=== PATIENT | male | born 1960 | race Caucasian/White ===

== ENCOUNTER 2017-10-11 14:38 | Inpatient (IN) | payer OTHER ==
[2017-10-11] MEDS ORDERED: PIPERACILLIN/TAZOBACTAM 4.5 GM VIAL IV ONE (14:58)
[2017-10-11] MEDS ORDERED: ACETAMINOPHEN 650 MG SUPP.RECT PR ONE ×2 (14:59→15:01)
[2017-10-11] MEDS ORDERED: VANCOMYCIN HCL INJ 1000 MG VIAL IV ONE (15:00)
[2017-10-11 15:05] LABS: VENOUS BLOOD HCO3 15.2 mmol/L (20-32); VENOUS BLOOD PCO2 26.1 mmHg (35-63); VENOUS BLOOD PH 7.38 (7.30-7.42)
[2017-10-11 15:06] LABS: INTERNATIONAL RATION (INR) 1.56; PROTHROMBIN TIME 19.6 SEC (11.4-15.4)
[2017-10-11 15:08] LABS: HEMATOCRIT 44.2 % (37.9-51.0); HEMOGLOBIN 15.5 g/dL (13.5-17.0); MEAN CORPUSCULAR HEMOGLOBIN 34.7 pg (27.0-33.4); MEAN CORPUSCULAR HGB CONC 35.1 g/dL (32.0-36.0); MEAN CORPUSCULAR VOLUME 99 fl (80-97); RED BLOOD COUNT 4.47 10^6/uL (4.35-5.55); RED CELL DISTRIBUTION WIDTH 13.5 % (11.5-14.0); WHITE BLOOD COUNT 6.6 10^3/uL (4.0-10.5)
[2017-10-11] MEDS ORDERED: LEVOFLOXACIN 750 MG/D5W RTU 750 MG/150 ML RTUPB IV ONE ×2 (15:13→20:24)
[2017-10-11] MEDS ORDERED: RINGERS SOLUTION,LACTATED 1,000 ML IV ONE ×3 (15:14→18:54)
[2017-10-11 15:20] LABS: ALANINE AMINOTRANSFERASE 400 U/L (21-72); ALBUMIN 3.8 g/dL (3.5-5.0); ALKALINE PHOSPHATASE 49 U/L (38-126); ANION GAP 14 (5-19); BILIRUBIN,DIRECT 0.8 mg/dL (0.0-0.4); BILIRUBIN,TOTAL 1.5 mg/dL (0.2-1.3); BLOOD UREA NITROGEN 37 mg/dL (7-20); CALCIUM 8.6 mg/dL (8.4-10.2); CARBON DIOXIDE 18 mmol/L (22-30); CHLORIDE 97 mmol/L (98-107); GLUCOSE 82 mg/dL (75-110); POTASSIUM 4.3 mmol/L (3.6-5.0); SODIUM 129.2 mmol/L (137-145); TOTAL PROTEIN 6.4 g/dL (6.3-8.2)
[2017-10-11] MEDS: NORMAL SALINE 1000 ML 1,000 ML IV PRN ×3 (15:22→19:28)
[2017-10-11 15:27] LABS: ASPARTATE AMINO TRANSFERASE 895 U/L (17-59)
[2017-10-11 15:32] LABS: PLATELET COUNT 61 10^3/uL (150-450)
[2017-10-11 15:35] LABS: ABSOLUTE LYMPHOCYTES# (MANUAL) 0.3 10^3/uL (0.5-4.7); ABSOLUTE MONOCYTES # (MANUAL) 0.1 10^3/uL (0.1-1.4); ABSOLUTE NEUTROPHILS# (MANUAL) 6.2 10^3/uL (1.7-8.2); BASOPHILS % (MANUAL) 1 % (0-2); EOSINOPHILS % (MANUAL) 0 % (0-6); LYMPHOCYTES % (MANUAL) 3 % (13-45); MONOCYTES % (MANUAL) 1 % (3-13); SEGMENTED NEUTROPHILS % (MAN) 51 % (42-78); TOTAL CELLS COUNTED 100
[2017-10-11 15:36] LABS: PLATELET COMMENT DECREASED; RBC MORPHOLOGY COMMENT NORMO-CYTIC/CHROMIC; TOXIC VACUOLATION PRESENT
[2017-10-11 15:37] LABS: BAND NEUTROPHILS % (MANUAL) 34 % (3-5); METAMYELOCYTES % (MANUAL) 9 % (0)
[2017-10-11] MEDS ORDERED: DEXTROSE 5%-WATER 250 ML with NOREPINEPHRINE BITARTRATE 4 MG IV PRN ×4 (16:17→19:45)
[2017-10-11] MEDS ORDERED: NOREPINEPHRINE BITARTRATE INJ/PF 4 MG/4 ML SDV IV ONE (16:21)
[2017-10-11] MEDS ORDERED: CEFEPIME 2 GM/D5W RTU 2 GM/50 ML RTUPB IV ONE (16:59)
--- NOTE | 2017-10-11 17:09 | ER Document Report ---
ED General - General Chief Complaint: Low Blood Pressure Stated Complaint: POSSIBLE SEPSIS Time Seen by Provider: 10/11/17 14:46 Mode of Arrival: Medic Information source: Patient Notes: This is a 57-year-old man who is brought in by EMS with fever, hypotension and pain. The patient is a 2 pack per day smoker and he drinks alcohol regularly. He is on no medicines. He states that he has been sick for the last few days. The patient's states that he has been coughing for the last few days. He also notes that the patient had told him that he fell a week ago and hit his head and lost consciousness. He is not complained of a headache since that time. The patient himself states that his 's dog bit him in the left index finger and that it looked infected and he started feeling bad after that. TRAVEL OUTSIDE OF THE [place] IN LAST 30 DAYS: No - HPI Onset: Last week Onset/Duration: Gradual Quality of pain: Dull Severity: Moderate Pain Level: 2 Associated symptoms: Nonproductive cough, Fever, Weakness. denies: Nausea, Vomiting, Shortness of breath Exacerbated by: Denies Relieved by: Denies Similar symptoms previously: No Recently seen / treated by doctor: No - Related Data Allergies/Adverse Reactions: Penicillins Allergy (Verified 10/11/17 15:29) Past Medical History - General Information source: Patient, Relative - Patient is accompanied by his - Social History Smoking Status: Current Every Day Smoker Cigarette use (# per day): Yes - Pack per day smoker Chew tobacco use (# tins/day): No Frequency of alcohol use: Heavy Drug Abuse: None Lives with: Spouse/Significant other Family History: None Patient has suicidal ideation: No Patient has homicidal ideation: No - Past Medical History Cardiac Medical History: Reports: None Pulmonary Medical History: Reports: None Endocrine Medical History: Reports: None Renal/ Medical History: Reports: None. Denies: Hx Peritoneal Dialysis Malignancy Medical History: Reports None GI Medical History: Reports: Hx Gastroesophageal Reflux Disease Musculoskeltal Medical History: Reports None Skin Medical History: Reports None Psychiatric Medical History: Reports: Hx Depression Traumatic Medical History: Reports: None Infectious Medical History: Reports: None Past Surgical History: Reports: Hx Cholecystectomy Review of Systems - Review of Systems Notes: Review of systems: Constitutional: Positive for fever chills EENT: Denies ear pain, sinus tenderness, throat pain, throat swelling. Cardiovascular: Denies chest pain, palpitations, dyspnea or edema. Respiratory: Positive for cough Abdomen: Denies abdominal pain, nausea, vomiting, diarrhea. Denies BRBPR or melena. Genitourinary: Denies dysuria, pyuria, hematuria, flank pain. Musculoskeletal: See H&P Neurologic: Denies headache, photophobia, neck stiffness, weakness. Denies loss of bowel or bladder function. Denies saddle anesthesia. Skin: See H&P Physical Exam - Vital signs Vitals: Resp Pulse Ox 39 H 92 10/11/17 14:42 10/11/17 14:42 Notes: Physical exam: GENERAL: 57-year-old man, hypotensive, looks quite ill, temperature 103.5 rectally HEAD: Atraumatic, normocephalic. EYES: Pupils equal round and reactive to light, extraocular movements intact, sclera anicteric, conjunctiva are normal. ENT: TMs normal, nares patent, oropharynx clear without exudates. Moist mucous membranes. NECK: Normal range of motion, supple without obvious mass or JVD. LUNGS: Breath sounds clear to auscultation bilaterally and equal. No wheezes rales or rhonchi. HEART: Regular rate and rhythm without murmurs, rubs or gallops. Flank: Patient has ecchymoses over the right flank. It is 10 cm at its greatest diameter. Rectal: No masses, stool sent for study, stool brown Penis: No obvious lesions of the perineum ABDOMEN: Soft, normoactive bowel sounds. No tenderness to palpation. No guarding, no rebound. No masses appreciated. EXTREMITIES: The patient does have healing dog bite over the dorsal aspect of the left index finger over the proximal phalanx. From the trajectory it look like the bite amanda was towards the volar surface. There is some fullness to the volar aspect of the index finger over the proximal phalanx. There is no obvious fluctuance. There is some swelling of the tissue. There is mild tenderness to palpation. NEUROLOGICAL: Cranial nerves II through XII grossly intact. Normal speech, moving all extremities. PSYCH: Normal mood, normal affect. SKIN: The patient has mottled skin and cold extremities. He does have pedal pulses at this point. Course - Re-evaluation Re-evalutation: 10/11/17 17:18 The patient currently being fluid resuscitated. He is on his third liter ( Ringer's lactate, the first 2 L with normal saline). The concern is septic shock. The etiology at this point is unclear. Whether the dog bite had anything to do with it is unclear. He has had some respiratory symptoms. In any event he was started on IV levofloxacin and IV vancomycin. I have presented the case with the hospitalist (Dr Hassan) as this patient will be admitted to the ICU. He will evaluate the patient in the ER. Patient does have a history of anaphylaxis due to penicillin. I discussed the case with the infectious disease fellow at [facility] (Dr. Lockhart) who recommended cefepime. This was added to his antibiotic regimen. The patient's current IV access includes 2 peripheral lines and a right femoral central line. I initially attempted a triple line in the right IJ but this needed to be aborted because of the patient's intolerance to the full sterile field (i.e. thrashing from claustrophobia and SOB under the drapes). Thus, a right triple lumen femoral central line was placed. I did discuss the case with Dr. quesada (orthopedics) who will consult on the patient regarding the hand. 10/11/17 17:46 10/11/17 18:16 Patient is currently on his fourth liter of fluid. He has received IV levofloxacin, IV Vanco and IV cefepime. He is on IV Levophed (right femoral vein). I reexamined the patient with Dr. Quesada given the history of dog bite to the left index finger. He will follow the patient. No indication for drainage at this time. The patient is admitted to the ICU. The goal is a systolic blood pressure greater than 90. He is alert and oriented 3 and answering questions. He does not appear to be in any respiratory distress at this time and his O2 sat is 96% on 2 L per 10/11/17 18:40 At this point in time, the hospital is on high census and there are no ICU beds. I did call [facility] and [facility] regarding their ICU bed availability and both those hospitals are full census and not accepting transfer. I do not believe the patient is stable enough to go any further distance than those 2 hospitals. Await ICU bed here. His oxygen saturation is currently 96%. 10/11/17 18:55 The patient is complaining of a lot of lower extremity pain. He continues to have mottled appearance to the lower extremities. We are able to Doppler dorsal pedal pulses bilaterally but they are reduced. 10/11/17 19:26 - Vital Signs Vital signs: Temp Pulse Resp BP Pulse Ox 97 F L 96 16 132/75 H 94 10/12/17 03:30 10/12/17 03:30 10/12/17 08:29 10/12/17 08:00 10/12/17 08:29 - Laboratory Result Diagrams: 10/12/17 05:05 10/11/17 14:19 Laboratory results interpreted by me: 10/11/17 10/11/17 10/11/17 14:19 14:19 14:19 MCV 99 H MCH 34.7 H Plt Count 61 L Band Neutrophils % 34 H Lymphocytes % (Manual) 3 L Monocytes % (Manual) 1 L Metamyelocytes % 9 H Abs Lymphs (Manual) 0.3 L PT 19.6 H VBG pCO2 VBG HCO3 Sodium 129.2 L Chloride 97 L Carbon Dioxide 18 L BUN 37 H Creatinine 2.42 H Est GFR ( Amer) 33 L Est GFR (Non-Af Amer) 28 L Lactic Acid Total Bilirubin 1.5 H Direct Bilirubin 0.8 H AST 895 H ALT 400 H Urine Protein Urine Blood Urine Urobilinogen 10/11/17 10/11/17 10/11/17 14:44 14:44 16:35 MCV MCH Plt Count Band Neutrophils % Lymphocytes % (Manual) Monocytes % (Manual) Metamyelocytes % Abs Lymphs (Manual) PT VBG pCO2 26.1 L VBG HCO3 15.2 L Sodium Chloride Carbon Dioxide BUN Creatinine Est GFR ( Amer) Est GFR (Non-Af Amer) Lactic Acid 4.5 H Total Bilirubin Direct Bilirubin AST ALT Urine Protein 100 H Urine Blood SMALL H Urine Urobilinogen 4.0 H - Diagnostic Test Radiology reviewed: Image reviewed, Reports reviewed - X-ray shows no obvious infiltrate Procedures - Central Line Right Femoral Time completed: 15:15 Consent obtained: Yes - Verbal consent obtained from both him and his Central line pre-insertion: Chloraprep applied, Sterile drapes applied Central line size (Fr.): 7 Central line lumen type: Triple Anesthetic type: 1% Lidocaine w/epi mL's of anesthesia: 3 Ultrasound guided: Yes CM at insertion site: 20 Line secured with sutures: Yes Central line post-insertion: Blood return from lumens, Biopatch applied, Sutured , Sterile dressing applied Number of attempts: 1 Complications: No Notes: 10/11/17 19:26 MSBT (maximum sterile barrier technique) followed including cap, mask, sterile gloves, large sterile sheet, hand hygiene, sterile ultrasound probe sleeve, sterile saline for probe visualization, liberal ChloraPrep for cutaneous antisepsis both during procedure set up and immediately before Biopatch application, line stabilization with suture and sterile Tegaderm placement. Critical Care Note - Critical Care Note Total time excluding time spent on procedures (mins): 120 Discharge - Discharge Clinical Impression: Septic shock Condition: Critical Disposition: ADMITTED INPATIENT Admitting Provider: Hospitalist - Dr Cervantes Unit Admitted: ICU
--- NOTE | 2017-10-11 17:14 | RADIOLOGY REPORT (SQ) ---
EXAM DESCRIPTION: CT ABD/PELVIS NO ORAL OR IV COMPLETED DATE/TIME: 10/11/2017 4:59 pm REASON FOR STUDY: septic shock COMPARISON: None. TECHNIQUE: CT scan of the abdomen and pelvis performed without intravenous or oral contrast. Images reviewed with lung, soft tissue, and bone windows. Reconstructed coronal and sagittal MPR images revi ewed. All images stored on PACS. All CT scanners at this facility use dose modulation, iterative reconstruction, and/or weight based d osing when appropriate to reduce radiation dose to as low as reasonably achievable (ALARA). [facility]: Dose Right [facility]: CareDose [facility]: Dose Right [facility]: Teradose 4D [facility]: [employer] RADIATION DOSE: mGy. LIMITATIONS: None. FINDINGS: LOWER CHEST: Tiny bilateral pleural effusions. Minimal basilar subsegmental atelectasis. NON-CONTRASTED LIVER, SPLEEN, ADRENALS: Evaluation limited by lack of IV contrast. No identified sign ificant masses. PANCREAS: No masses. No peripancreatic inflammatory changes. GALLBLADDER: Surgically absent. RIGHT KIDNEY AND URETER: No suspicious masses. Assessment limited by lack of IV contrast. No signif icant calcifications. No hydronephrosis or hydroureter. LEFT KIDNEY AND URETER: No suspicious masses. Assessment limited by lack of IV contrast. No signifi cant calcifications. No hydronephrosis or hydroureter. AORTA AND RETROPERITONEUM: No aneurysm. No retroperitoneal masses or adenopathy. Mild nonspecific pa rarenal fat stranding. BOWEL AND PERITONEAL CAVITY: No obvious masses or inflammatory changes. Mild colonic diverticulosis. No free fluid. APPENDIX: Normal. PELVIS, BLADDER, AND ABDOMINAL WALL:No abnormal masses. No free fluid. Bladder contains a Vargas jayesh ter with some intraluminal gas. . BONES: No significant findings. OTHER: Right femoral central venous catheter tip overlies the right common iliac vein. IMPRESSION: Tiny bilateral pleural effusions. Minimal basilar subsegmental atelectasis. Mild nonspecific pararenal fat stranding. No hydronephrosis or hydroureter. COMMENT: Quality ID # [id number]: Final reports with documentation of one or more dose reduction techniques (e.g., Automated exposure control, adjustment of the mA and/or kV according to patient size, use of iterative reconstruction technique) TECHNICAL DOCUMENTATION: JOB ID: [id number] [place]-72 2010 [employer]- All Rights Reserved
--- NOTE | 2017-10-11 17:21 | RADIOLOGY REPORT (SQ) ---
EXAM DESCRIPTION: CHEST SINGLE VIEW COMPLETED DATE/TIME: 10/11/2017 5:13 pm REASON FOR STUDY: sepsis protocol COMPARISON: None. EXAM PARAMETERS: NUMBER OF VIEWS: One view. TECHNIQUE: Single frontal radiographic view of the chest acquired. RADIATION DOSE: NA LIMITATIONS: None. FINDINGS: LUNGS AND PLEURA: No opacities, masses or pneumothorax. No pleural effusion. MEDIASTINUM AND HILAR STRUCTURES: No masses. Contour normal. HEART AND VASCULAR STRUCTURES: Heart normal in size. Normal vasculature. BONES: No acute findings. HARDWARE: None in the chest. OTHER: No other significant finding. IMPRESSION: NO ACUTE RADIOGRAPHIC FINDING IN THE CHEST. TECHNICAL DOCUMENTATION: JOB ID: [id number] [employer]- All Rights Reserved
--- NOTE | 2017-10-11 17:26 | RADIOLOGY REPORT (SQ) ---
EXAM DESCRIPTION: CT HEAD WITHOUT COMPLETED DATE/TIME: 10/11/2017 5:15 pm REASON FOR STUDY: fall COMPARISON: None. TECHNIQUE: Axial images acquired through the brain without intravenous contrast. Images reviewed wi th bone, brain and subdural windows. Images stored on PACS. All CT scanners at this facility use dose modulation, iterative reconstruction, and/or weight based d osing when appropriate to reduce radiation dose to as low as reasonably achievable (ALARA). [facility]: Dose Right [facility]: CareDose [facility]: Dose Right [facility]: Teradose 4D [facility]: [employer] RADIATION DOSE: mGy. LIMITATIONS: None. FINDINGS: VENTRICLES: Normal size and contour. CEREBRUM: No masses. No hemorrhage. No midline shift. No evidence for acute infarction. Normal gra y/white matter differentiation. No areas of low density in the white matter. CEREBELLUM: No masses. No hemorrhage. No alteration of density. No evidence for acute infarction. EXTRAAXIAL SPACES: No fluid collections. No masses. ORBITS AND GLOBE: No intra- or extraconal masses. Normal contour of globe without masses. CALVARIUM: No fracture. PARANASAL SINUSES: Mucosal thickening is identified in the maxillary antra and several of the ethmoid al air cells. SOFT TISSUES: No mass or hematoma. OTHER: No other significant finding. IMPRESSION: No significant intracranial abnormalities were identified. Other findings as noted abov e. EVIDENCE OF ACUTE STROKE: NO. COMMENT: Quality ID # [id number]: Final reports with documentation of one or more dose reduction techniques (e.g., Automated exposure control, adjustment of the mA and/or kV according to patient size, use of iterative reconstruction technique) TECHNICAL DOCUMENTATION: JOB ID: [id number] [employer]- All Rights Reserved
--- NOTE | 2017-10-11 17:27 | RADIOLOGY REPORT (SQ) ---
EXAM DESCRIPTION: FOOT LEFT 2 VIEWS COMPLETED DATE/TIME: 10/11/2017 5:13 pm REASON FOR STUDY: left calcaneal pain COMPARISON: None. NUMBER OF VIEWS: Two views TECHNIQUE: AP and lateral radiographic images acquired of the left foot. LIMITATIONS: None. FINDINGS: MINERALIZATION: Normal. BONES: No acute fracture or dislocation. No worrisome bone lesions. JOINTS: No effusions. SOFT TISSUES: No soft tissue swelling. No foreign body. OTHER: No other significant finding. IMPRESSION: NEGATIVE STUDY OF THE LEFT FOOT. NO RADIOGRAPHIC EVIDENCE OF ACUTE INJURY. TECHNICAL DOCUMENTATION: JOB ID: [id number] [employer]- All Rights Reserved
--- NOTE | 2017-10-11 17:28 | RADIOLOGY REPORT (SQ) ---
EXAM DESCRIPTION: HAND LEFT 3 VIEWS COMPLETED DATE/TIME: 10/11/2017 5:13 pm REASON FOR STUDY: h/o bite to left index finger COMPARISON: None. EXAM PARAMETERS: NUMBER OF VIEWS: Three views. TECHNIQUE: AP, lateral and oblique radiographic images acquired of the left hand. LIMITATIONS: None. FINDINGS: MINERALIZATION: Normal. BONES: No acute fracture or dislocation. No worrisome bone lesions. JOINTS: No effusions. SOFT TISSUES: Mild soft tissue swelling. Several punctate radiopaque foreign bodies appear present i n the palmar soft tissue interspace between the 1st and 2nd digits. OTHER: No other significant finding. IMPRESSION: Several punctate radiopaque foreign bodies appear present in the palmar soft tissue inte rspace between the 1st and 2nd digits. No fracture. TECHNICAL DOCUMENTATION: JOB ID: [id number] [place]-72 2010 [employer]- All Rights Reserved
[2017-10-11 17:38] LABS: AMORPHOUS SEDIMENT,URINE TRACE /HPF; APPEARANCE,URINE CLOUDY; BILIRUBIN,URINE NEGATIVE (NEGATIVE); GLUCOSE, URINE NEGATIVE (NEGATIVE); KETONES,URINE NEGATIVE (NEGATIVE); LEUKOCYTE ESTERASE,URINE NEGATIVE (NEGATIVE); NITRITE,URINE NEGATIVE (NEGATIVE); PROTEIN,URINE 100 mg/dL (NEGATIVE); URINE SPECIFIC GRAVITY 1.018
[2017-10-11 17:41] LABS: COLOR,URINE YELLOW
[2017-10-11] MEDS ORDERED: NICOTINE 14 MG/24 HR PATCH.TD24 TD ONE (17:55)
[2017-10-11] MEDS ORDERED: LORAZEPAM 0.5 MG TABLET PO ONE (17:56)
[2017-10-11] MEDS ORDERED: MORPHINE SULFATE 10 MG/ML INJ IV ONE (18:28)
[2017-10-11] MEDS ORDERED: HYDROMORPHONE HCL INJ/PF 2 MG/ML AMPULE IV ONE (18:36)
[2017-10-11] MEDS ORDERED: DEXTROSE 5%-WATER 250 ML with PHENYLEPHRINE HCL 40 MG IV PRN ×2 (19:33)
[2017-10-11] MEDS ORDERED: NORMAL SALINE 1000 ML 1,000 ML IV SCH (19:45)
[2017-10-11] MEDS ORDERED: VANCOMYCIN HCL 0 MG in DEXTROSE 5%-WATER 250 ML IV NR (20:00)
[2017-10-11 20:22] LABS: ALANINE AMINOTRANSFERASE 324 U/L (21-72); ALBUMIN 2.9 g/dL (3.5-5.0); ALKALINE PHOSPHATASE 34 U/L (38-126); ASPARTATE AMINO TRANSFERASE 681 U/L (17-59); BILIRUBIN,DIRECT 1.1 mg/dL (0.0-0.4); BILIRUBIN,TOTAL 1.7 mg/dL (0.2-1.3); TOTAL PROTEIN 5.2 g/dL (6.3-8.2)
[2017-10-11] MEDS ORDERED: PHENYLEPHRINE HCL INJ/PF 10 MG/1 ML SDV ONE ×2 (20:23→20:37)
--- NOTE | 2017-10-11 20:49 | PDOC H&P ---
History of Present Illness Admission Date/PCP: 10/11/17 18:42 Patient complains of: Fever, chills, malaise History of Present Illness: JOSEPH BUSBY is a 57 year old male apparently with no significant medical problem, but is a smoker and uses alcohol regularly. Patient reported having cough for about 1 to 2 weeks, nonproductive. He works in the [employer] and continue to had continued to work per his . Last night after he returned from work he had significant chills and had a rapid strep in the blanket. He could not eat due to loss of appetite. This morning he got worse with fever, chills, dizziness, malaise and syncope. Patient also reports dog bite left index finger and patient thinks he may also have begun to be sick after the bite. In the ED where he was found to be hypotensive systolic of 70s. He received 3 L bolus of Ringer's lactate with persistent hypotension. He has not been started on levo fed. Patient also has received Levaquin and vancomycin antibiotics. He reports allergies to penicillin with possible anaphylaxis, but ED physician called ID at [facility] and benefits of cefepime given the history of dog bite was thought to outweigh the risk, so patient also received cefepime. He is currently being admitted to intensive care for further evaluation and management. Past Medical History Past Medical History: As in HPI Cardiac Medical History: Reports: None Pulmonary Medical History: Reports: None Endocrine Medical History: Reports: None Renal/ Medical History: Reports: None Malignancy Medical History: Reports: None GI Medical History: Reports: Gastroesophageal Reflux Disease Musculoskeltal Medical History: Reports: None Skin Medical History: Reports: None Psychiatric Medical History: Reports: Depression Traumatic Medical History: Reports: None Infectious Medical History: Reports: None Past Surgical History Past Surgical History: Reports: Cholecystectomy Social History Lives with: Spouse/Significant other Smoking Status: Current Every Day Smoker - Advance Directive Resuscitation Status: Full Code Family History Family History: Noncontributory Parental Family History Reviewed: Yes Children Family History Reviewed: Unknown Sibling(s) Family History Reviewed.: Unknown Medication/Allergy Home Medications: No Home Medications 10/11/17 Allergies/Adverse Reactions: Penicillins Allergy (Verified 10/11/17 15:29) Review of Systems Review of Systems: As in the HPI. Also no significant weight loss. No abdominal pain or rectal bleeding, no chest pain or palpitations. Complains of pain bilateral feet. Physical Exam Vital Signs: Temp Pulse Resp BP Pulse Ox 103.5 F H 24 H 76/58 L 100 10/11/17 15:02 10/11/17 19:21 10/11/17 19:21 10/11/17 19:20 GENERAL: Well-developed male, ill-appearing HEENT: Oral mucosa mildly dry Neck: Supple, no JVD CARDIOVASCULAR: RRR, normal S1-S2, no appreciable murmur LUNGS: Decreased breath sounds bases bilaterally ABDOMEN: Soft, NT, NL bowel sounds EXTREMITIES: Left index finger weights healing bite wounds, no significant swelling, nontender. He has tenderness bilateral feet, worse in the heel. Dorsalis pedis pulses are present but reduced. No edema, clubbing, cyanosis although feet appear cold. Capillary refill is delayed NEUROLOGICAL: Awake, oriented x 3, no lateralizing weakness Results Laboratory Results: 10/11/17 18:58 Lactic Acid 4.6 H 10/11/17 14:19 Laboratory results interpreted by me: 10/11/17 10/11/17 10/11/17 14:19 14:19 14:19 MCV 99 H MCH 34.7 H Plt Count 61 L Band Neutrophils % 34 H Lymphocytes % (Manual) 3 L Monocytes % (Manual) 1 L Metamyelocytes % 9 H Abs Lymphs (Manual) 0.3 L PT 19.6 H VBG pCO2 VBG HCO3 Sodium 129.2 L Chloride 97 L Carbon Dioxide 18 L BUN 37 H Creatinine 2.42 H Est GFR ( Amer) 33 L Est GFR (Non-Af Amer) 28 L Lactic Acid Total Bilirubin 1.5 H Direct Bilirubin 0.8 H AST 895 H ALT 400 H Urine Protein Urine Blood Urine Urobilinogen 10/11/17 10/11/17 10/11/17 14:44 14:44 16:35 MCV MCH Plt Count Band Neutrophils % Lymphocytes % (Manual) Monocytes % (Manual) Metamyelocytes % Abs Lymphs (Manual) PT VBG pCO2 26.1 L VBG HCO3 15.2 L Sodium Chloride Carbon Dioxide BUN Creatinine Est GFR ( Amer) Est GFR (Non-Af Amer) Lactic Acid 4.5 H Total Bilirubin Direct Bilirubin AST ALT Urine Protein 100 H Urine Blood SMALL H Urine Urobilinogen 4.0 H EKG Comments: Sinus tachycardia, no ST changes Impressions: Chest X-Ray 10/11/17 00:00 IMPRESSION: NO ACUTE RADIOGRAPHIC FINDING IN THE CHEST. Abdomen/Pelvis CT 10/11/17 16:29 IMPRESSION: Tiny bilateral pleural effusions. Minimal basilar subsegmental atelectasis. Mild nonspecific pararenal fat stranding. No hydronephrosis or hydroureter. Hand X-Ray 10/11/17 16:43 IMPRESSION: Several punctate radiopaque foreign bodies appear present in the palmar soft tissue interspace between the 1st and 2nd digits. No fracture. Foot X-Ray 10/11/17 16:46 IMPRESSION: NEGATIVE STUDY OF THE LEFT FOOT. NO RADIOGRAPHIC EVIDENCE OF ACUTE INJURY. Head CT 10/11/17 17:05 IMPRESSION: No significant intracranial abnormalities were identified. Other findings as noted above. EVIDENCE OF ACUTE STROKE: NO. Assessment & Plan - Diagnosis (1) Sepsis associated hypotension Is this a current diagnosis for this admission?: Yes Plan: Patient is admitted to ICU, but bed currently not available. Patient is quite unstable for transfer at this time, and ICU beds not available in the surrounding hospitals in any case. Continue aggressive IV hydration. Will also continue Levophed for now as well. (2) Dog bite Is this a current diagnosis for this admission?: Yes Plan: Could this be the source of the impression? Of note is that chest and abdomen imaging I am not very revealing. Orthopedics to evaluate patient as in ED physician's note. Continue antibiotics to include cefepime as well as stated. (3) Tobacco dependence Plan: Nicotine patch. Different smoking cessation counseling at this time as patient critically ill. (4) Alcohol use Plan: Monitor for DVT. (5) Abnormal LFTs Plan: Suspect shock liver. Follow-up levels. (6) Hyponatremia Is this a current diagnosis for this admission?: Yes Plan: Follow-up Chem-7 in a.m. - Inpatient Certification Based on my medical assessment, after consideration of the patient's comorbidities, presenting symptoms, or acuity I expect that the services needed warrant INPATIENT care.: Yes I certify that my determination is in accordance with my understanding of Medicare's requirements for reasonable and necessary INPATIENT services [42 CFR 412.3e].: Yes Medical Necessity: Need Close Monitoring Due to Risk of Patient Decompensation, Need For IV Fluids, Need For Continuous Telemetry Monitoring
[2017-10-11] MEDS: IPRATROPIUM/ALBUTEROL 0.5-2.5 MG/3 ML AMPUL NEB SCH (21:24)
[2017-10-11 21:58] LABS: HEMATOCRIT 29.5 % (37.9-51.0); MEAN CORPUSCULAR HEMOGLOBIN 34.7 pg (27.0-33.4); MEAN CORPUSCULAR HGB CONC 34.4 g/dL (32.0-36.0); MEAN CORPUSCULAR VOLUME 101 fl (80-97); RED BLOOD COUNT 2.92 10^6/uL (4.35-5.55); RED CELL DISTRIBUTION WIDTH 13.5 % (11.5-14.0); WHITE BLOOD COUNT 11.6 10^3/uL (4.0-10.5)
[2017-10-11 21:59] LABS: PLATELET COUNT 34 10^3/uL (150-450)
[2017-10-11] MEDS ORDERED: PHYTONADIONE INJ 10 MG/1 ML AMPULE SUBCUT ONE (22:00)
[2017-10-11] MEDS ORDERED: THIAMINE HCL 100 MG, FOLIC ACID 1 MG in NORMAL SALINE 250 ML IV ONE (22:00)
[2017-10-11 22:01] LABS: HEMOGLOBIN 10.1 g/dL (13.5-17.0)
[2017-10-11] MEDS: CLINDAMYCIN 900 MG/D5W RTU 50 ML IV SCH (22:03)
[2017-10-11 22:37] LABS: ABSOLUTE LYMPHOCYTES# (MANUAL) 0.3 10^3/uL (0.5-4.7); ABSOLUTE MONOCYTES # (MANUAL) 0.3 10^3/uL (0.1-1.4); ABSOLUTE NEUTROPHILS# (MANUAL) 10.9 10^3/uL (1.7-8.2); BASOPHILS % (MANUAL) 0 % (0-2); EOSINOPHILS % (MANUAL) 0 % (0-6); LYMPHOCYTES % (MANUAL) 3 % (13-45); METAMYELOCYTES % (MANUAL) 2 % (0); MONOCYTES % (MANUAL) 3 % (3-13); TOTAL CELLS COUNTED 100
[2017-10-11 22:44] LABS: TOXIC GRANULATION 2+
[2017-10-11 22:45] LABS: ACANTHOCYTES SLIGHT; ANISOCYTOSIS SLIGHT; BURR CELLS 1+; PLATELET COMMENT DECREASED; PLATELET GIANT PRESENT; PLATELET LARGE PRESENT; POIKILOCYTOSIS 1+; SCHISTOCYTES 1+; TEAR DROP CELLS SLIGHT; TOXIC VACUOLATION PRESENT
[2017-10-11 22:51] LABS: INTERNATIONAL RATION (INR) 2.14; PROTHROMBIN TIME 25.1 SEC (11.4-15.4)
[2017-10-11] MEDS ORDERED: NORMAL SALINE 250 ML IV PRN ×2 (23:02)
[2017-10-11] MEDS: LORAZEPAM INJ 2 MG/1 ML VIAL IV PRN (23:29)
[2017-10-12] MEDS ORDERED: HYDROMORPHONE HCL INJ/PF 2 MG/ML AMPULE IV ONE (00:14)
[2017-10-12] MEDS: LORAZEPAM INJ 2 MG/1 ML VIAL IV PRN ×4 (04:15→19:25)
[2017-10-12] MEDS: NORMAL SALINE 1000 ML 1,000 ML IV PRN ×2 (05:05→16:32)
[2017-10-12 05:21] LABS: HEMATOCRIT 37.3 % (37.9-51.0); MEAN CORPUSCULAR HEMOGLOBIN 34.2 pg (27.0-33.4); MEAN CORPUSCULAR VOLUME 101 fl (80-97); RED CELL DISTRIBUTION WIDTH 13.5 % (11.5-14.0); WHITE BLOOD COUNT 15.4 10^3/uL (4.0-10.5)
[2017-10-12 05:25] LABS: HEMOGLOBIN 12.7 g/dL (13.5-17.0); PLATELET COUNT 38 10^3/uL (150-450)
[2017-10-12] MEDS: CLINDAMYCIN 900 MG/D5W RTU 50 ML IV SCH ×3 (05:43→22:07)
[2017-10-12 05:44] LABS: ABSOLUTE LYMPHOCYTES# (MANUAL) 0.8 10^3/uL (0.5-4.7); ABSOLUTE MONOCYTES # (MANUAL) 0.3 10^3/uL (0.1-1.4); ABSOLUTE NEUTROPHILS# (MANUAL) 14.3 10^3/uL (1.7-8.2); BASOPHILS % (MANUAL) 0 % (0-2); EOSINOPHILS % (MANUAL) 0 % (0-6); LYMPHOCYTES % (MANUAL) 5 % (13-45); MONOCYTES % (MANUAL) 2 % (3-13); SEGMENTED NEUTROPHILS % (MAN) 66 % (42-78); TOTAL CELLS COUNTED 100
[2017-10-12 05:46] LABS: BAND NEUTROPHILS % (MANUAL) 27 % (3-5); PLATELET COMMENT DECREASED; RBC MORPHOLOGY COMMENT NORMO-CYTIC/CHROMIC; TOXIC GRANULATION 1+; TOXIC VACUOLATION PRESENT
[2017-10-12] MEDS ORDERED: CEFEPIME 2 GM/D5W RTU 2 GM/50 ML RTUPB IV SCH (06:00)
[2017-10-12] MEDS: HYDROMORPHONE HCL INJ/PF 2 MG/ML AMPULE IV PRN (06:02)
[2017-10-12] MEDS: IPRATROPIUM/ALBUTEROL 0.5-2.5 MG/3 ML AMPUL NEB SCH ×4 (07:41→19:59)
--- NOTE | 2017-10-12 08:54 | EKG REPORT ---
SEVERITY:- OTHERWISE NORMAL ECG - SINUS TACHYCARDIA : Confirmed by: Amna Burton 12-Oct-2017 08:53:57
[2017-10-12 09:38] LABS: HEMATOCRIT 36.9 % (37.9-51.0); HEMOGLOBIN 12.8 g/dL (13.5-17.0); MEAN CORPUSCULAR HEMOGLOBIN 34.6 pg (27.0-33.4); MEAN CORPUSCULAR HGB CONC 34.6 g/dL (32.0-36.0); MEAN CORPUSCULAR VOLUME 100 fl (80-97); RED BLOOD COUNT 3.69 10^6/uL (4.35-5.55); RED CELL DISTRIBUTION WIDTH 13.4 % (11.5-14.0); WHITE BLOOD COUNT 16.2 10^3/uL (4.0-10.5)
[2017-10-12] MEDS: ENOXAPARIN SODIUM INJ 40 MG/0.4 ML DISP.SYRIN SUBCUT SCH (09:47)
[2017-10-12 10:14] LABS: PLATELET COUNT 38 10^3/uL (150-450)
[2017-10-12 10:17] LABS: ABSOLUTE LYMPHOCYTES# (MANUAL) 1.1 10^3/uL (0.5-4.7); ABSOLUTE MONOCYTES # (MANUAL) 0.3 10^3/uL (0.1-1.4); ABSOLUTE NEUTROPHILS# (MANUAL) 14.7 10^3/uL (1.7-8.2); BAND NEUTROPHILS % (MANUAL) 28 % (3-5); BASOPHILS % (MANUAL) 0 % (0-2); EOSINOPHILS % (MANUAL) 0 % (0-6); LYMPHOCYTES % (MANUAL) 7 % (13-45); MONOCYTES % (MANUAL) 2 % (3-13); PLATELET COMMENT DECREASED; SEGMENTED NEUTROPHILS % (MAN) 63 % (42-78); TOTAL CELLS COUNTED 100; TOXIC GRANULATION 2+; TOXIC VACUOLATION PRESENT
[2017-10-12 10:18] LABS: BURR CELLS SLIGHT; OVALOCYTES SLIGHT; POIKILOCYTOSIS SLIGHT; POLYCHROMASIA SLIGHT
[2017-10-12] MEDS: NICOTINE 21 MG/24 HR PATCH.TD24 TD SCH (10:30)
[2017-10-12 11:32] LABS: PATH REVIEW PATHOLOGIST REVIEWED
[2017-10-12 11:32] LABS: PATH REVIEW PATHOLOGIST REVIEWED
--- NOTE | 2017-10-12 11:42 | PDOC PROGRESS REPORT ---
Subjective Progress Note for:: 10/12/17 Subjective:: Patient with periods of agitation and restlessness. He wakes up, opens eyes, but not following commands. Reason For Visit: SEPSIS Physical Exam Vital Signs: Temp Pulse Resp BP Pulse Ox 97 F L 96 17 151/97 H 97 10/12/17 03:30 10/12/17 03:30 10/12/17 10:30 10/12/17 10:31 10/12/17 10:30 Intake & Output 10/11/17 10/12/17 10/13/17 06:59 06:59 06:59 Intake Total 404 Output Total 1000 550 Balance -596 -550 GENERAL: Restless, ill-appearing HEENT: Oral mucosa moist Neck: Supple, no JVD CARDIOVASCULAR: RRR, normal S1-S2, no appreciable murmur LUNGS: Exam reveals bilaterally with bilateral rhonchi ABDOMEN: Soft, NT, NL bowel sounds EXTREMITIES: Left index finger with healing bite wounds, no significant swelling , nontender. No tenderness bilateral feet at this time. Dorsalis pedis pulses are palpable. No edema, clubbing, cyanosis of feet. Capillary refills are now adequate NEUROLOGICAL: Arousable, moving all extremities spontaneously Results Laboratory Results: 10/12/17 09:17 10/11/17 10/11/17 10/11/17 18:58 19:40 21:47 WBC 11.6 H RBC 2.92 L Hgb 10.1 L D Hct 29.5 L MCV 101 H MCH 34.7 H MCHC 34.4 RDW 13.5 Plt Count 34 L Seg Neutrophils % Not Reportable Lymphocytes % Not Reportable Monocytes % Not Reportable Eosinophils % Not Reportable Basophils % Not Reportable Absolute Neutrophils Not Reportable Absolute Lymphocytes Not Reportable Absolute Monocytes Not Reportable Absolute Eosinophils Not Reportable Absolute Basophils Not Reportable Lactic Acid 4.6 H Total Bilirubin 1.7 H AST 681 H ALT 324 H Alkaline Phosphatase 34 L Total Protein 5.2 L Albumin 2.9 L Blood Type 10/11/17 10/12/17 10/12/17 23:38 04:30 05:05 WBC Cancelled 15.4 H RBC Cancelled 3.70 L Hgb Cancelled 12.7 L D Hct Cancelled 37.3 L MCV Cancelled 101 H MCH Cancelled 34.2 H MCHC Cancelled 34.0 RDW Cancelled 13.5 Plt Count Cancelled 38 L Seg Neutrophils % Cancelled Not Reportable Lymphocytes % Cancelled Not Reportable Monocytes % Cancelled Not Reportable Eosinophils % Cancelled Not Reportable Basophils % Cancelled Not Reportable Absolute Neutrophils Cancelled Not Reportable Absolute Lymphocytes Cancelled Not Reportable Absolute Monocytes Cancelled Not Reportable Absolute Eosinophils Cancelled Not Reportable Absolute Basophils Cancelled Not Reportable Lactic Acid Total Bilirubin AST ALT Alkaline Phosphatase Total Protein Albumin Blood Type A POSITIVE 10/12/17 09:17 WBC 16.2 H RBC 3.69 L Hgb 12.8 L Hct 36.9 L MCV 100 H MCH 34.6 H MCHC 34.6 RDW 13.4 Plt Count 38 L Seg Neutrophils % Not Reportable Lymphocytes % Not Reportable Monocytes % Not Reportable Eosinophils % Not Reportable Basophils % Not Reportable Absolute Neutrophils Not Reportable Absolute Lymphocytes Not Reportable Absolute Monocytes Not Reportable Absolute Eosinophils Not Reportable Absolute Basophils Not Reportable Lactic Acid Total Bilirubin AST ALT Alkaline Phosphatase Total Protein Albumin Blood Type Impressions: Chest X-Ray 10/11/17 00:00 IMPRESSION: NO ACUTE RADIOGRAPHIC FINDING IN THE CHEST. Abdomen/Pelvis CT 10/11/17 16:29 IMPRESSION: Tiny bilateral pleural effusions. Minimal basilar subsegmental atelectasis. Mild nonspecific pararenal fat stranding. No hydronephrosis or hydroureter. Hand X-Ray 10/11/17 16:43 IMPRESSION: Several punctate radiopaque foreign bodies appear present in the palmar soft tissue interspace between the 1st and 2nd digits. No fracture. Foot X-Ray 10/11/17 16:46 IMPRESSION: NEGATIVE STUDY OF THE LEFT FOOT. NO RADIOGRAPHIC EVIDENCE OF ACUTE INJURY. Head CT 10/11/17 17:05 IMPRESSION: No significant intracranial abnormalities were identified. Other findings as noted above. EVIDENCE OF ACUTE STROKE: NO. Assessment & Plan - Diagnosis (1) Sepsis associated hypotension Is this a current diagnosis for this admission?: Yes Plan: Hypotension has improved. Patient now off pressors, will continue IV fluids at 150 mL/h. He has received over 8 L of fluid since admission yesterday. Continue ICU level care. (2) Dog bite Is this a current diagnosis for this admission?: Yes Plan: Could this be the source of the infection/sepsis? Of note is that chest and abdomen imaging and urinalysis are not very revealing. Orthopedics to evaluate patient as in ED physician's note. Continue antibiotics to include cefepime as well as Vanco, Levaquin, and Clinda added by the night physician. Blood cultures pending. Urine culture also pending. We will adjust antibiotics as needed pending culture results. (3) Tobacco dependence Is this a current diagnosis for this admission?: Yes Plan: Nicotine patch. Again, deferring smoking cessation counseling at this time as patient critically ill. (4) Alcohol use Plan: Continue to monitor for DTs. Benzodiazepine IV for DT prophylaxis as well as restlessness. (5) Abnormal LFTs Plan: Suspect shock liver. Continue to monitor. (6) Hyponatremia Is this a current diagnosis for this admission?: Yes Plan: Continue to monitor. Recheck Chem-7 today. (7) DIC syndrome Is this a current diagnosis for this admission?: Yes Plan: Suspect DIC, given thrombocytopenia, coagulopathy. Patient has received FFP. We will continue to monitor CBC and platelets, follow coags, continue antibiotics and supportive care. - Plan Summary Plan Summary: SCDs for DVT prophylaxis at this time.
[2017-10-12 12:58] LABS: BAND NEUTROPHILS % (MANUAL) 29 % (3-5); SEGMENTED NEUTROPHILS % (MAN) 63 % (42-78)
[2017-10-12 13:33] LABS: HEMATOCRIT 37.3 % (37.9-51.0); MEAN CORPUSCULAR HEMOGLOBIN 34.5 pg (27.0-33.4); MEAN CORPUSCULAR HGB CONC 34.7 g/dL (32.0-36.0); MEAN CORPUSCULAR VOLUME 99 fl (80-97); RED BLOOD COUNT 3.76 10^6/uL (4.35-5.55); RED CELL DISTRIBUTION WIDTH 13.3 % (11.5-14.0); WHITE BLOOD COUNT 16.2 10^3/uL (4.0-10.5)
[2017-10-12 13:38] LABS: ALANINE AMINOTRANSFERASE 336 U/L (21-72); ALBUMIN 3.2 g/dL (3.5-5.0); ALKALINE PHOSPHATASE 65 U/L (38-126); ANION GAP 9 (5-19); ASPARTATE AMINO TRANSFERASE 520 U/L (17-59); BILIRUBIN,DIRECT 0.5 mg/dL (0.0-0.4); BILIRUBIN,TOTAL 1.2 mg/dL (0.2-1.3); BLOOD UREA NITROGEN 26 mg/dL (7-20); CARBON DIOXIDE 17 mmol/L (22-30); CHLORIDE 107 mmol/L (98-107); GLUCOSE 61 mg/dL (75-110); POTASSIUM 4.4 mmol/L (3.6-5.0); SODIUM 133.3 mmol/L (137-145); TOTAL PROTEIN 5.2 g/dL (6.3-8.2)
[2017-10-12 13:45] LABS: CALCIUM 7.1 mg/dL (8.4-10.2)
[2017-10-12 14:12] LABS: PLATELET COUNT 33 10^3/uL (150-450)
[2017-10-12 14:15] LABS: ABSOLUTE MONOCYTES # (MANUAL) 0.3 10^3/uL (0.1-1.4); ABSOLUTE NEUTROPHILS# (MANUAL) 14.9 10^3/uL (1.7-8.2); BAND NEUTROPHILS % (MANUAL) 27 % (3-5); BASOPHILS % (MANUAL) 0 % (0-2); EOSINOPHILS % (MANUAL) 0 % (0-6); LYMPHOCYTES % (MANUAL) 5 % (13-45); MONOCYTES % (MANUAL) 2 % (3-13); SEGMENTED NEUTROPHILS % (MAN) 65 % (42-78); TOTAL CELLS COUNTED 100; TOXIC GRANULATION 2+; TOXIC VACUOLATION PRESENT
[2017-10-12 14:16] LABS: PLATELET COMMENT DECREASED; PLATELET LARGE PRESENT; POLYCHROMASIA SLIGHT
[2017-10-12] MEDS ORDERED: INFLUENZA ADLT QUAD (36MOS+) 2017-18 VAC 0.5 ML SYR IM PRN (14:19)
[2017-10-12] MEDS ORDERED: VANCOMYCIN HCL 750 MG in DEXTROSE 5%-WATER 250 ML IV SCH (15:00)
[2017-10-12] MEDS: CEFEPIME HCL 2 GM in DEXTROSE 5%-WATER 50 ML IV SCH (18:02)
[2017-10-12 19:52] LABS: HEMATOCRIT 35.7 % (37.9-51.0); HEMOGLOBIN 12.2 g/dL (13.5-17.0); MEAN CORPUSCULAR HEMOGLOBIN 33.9 pg (27.0-33.4); MEAN CORPUSCULAR HGB CONC 34.3 g/dL (32.0-36.0); MEAN CORPUSCULAR VOLUME 99 fl (80-97); RED BLOOD COUNT 3.62 10^6/uL (4.35-5.55); RED CELL DISTRIBUTION WIDTH 13.1 % (11.5-14.0); WHITE BLOOD COUNT 14.6 10^3/uL (4.0-10.5)
[2017-10-12 20:00] LABS: ALANINE AMINOTRANSFERASE 300 U/L (21-72); ALBUMIN 2.7 g/dL (3.5-5.0); ALKALINE PHOSPHATASE 56 U/L (38-126); ANION GAP 7 (5-19); ASPARTATE AMINO TRANSFERASE 408 U/L (17-59); BILIRUBIN,DIRECT 0.6 mg/dL (0.0-0.4); BILIRUBIN,TOTAL 1.1 mg/dL (0.2-1.3); BLOOD UREA NITROGEN 23 mg/dL (7-20); CALCIUM 7.2 mg/dL (8.4-10.2); CARBON DIOXIDE 19 mmol/L (22-30); CHLORIDE 103 mmol/L (98-107); GLUCOSE 82 mg/dL (75-110); SODIUM 128.8 mmol/L (137-145); TOTAL PROTEIN 5.1 g/dL (6.3-8.2)
[2017-10-12 20:28] LABS: PLATELET COUNT 32 10^3/uL (150-450)
[2017-10-12 20:47] LABS: ABSOLUTE LYMPHOCYTES# (MANUAL) 1.3 10^3/uL (0.5-4.7); ABSOLUTE MONOCYTES # (MANUAL) 0.6 10^3/uL (0.1-1.4); ABSOLUTE NEUTROPHILS# (MANUAL) 12.6 10^3/uL (1.7-8.2); BAND NEUTROPHILS % (MANUAL) 45 % (3-5); BASOPHILS % (MANUAL) 0 % (0-2); EOSINOPHILS % (MANUAL) 1 % (0-6); LYMPHOCYTES % (MANUAL) 9 % (13-45); METAMYELOCYTES % (MANUAL) 2 % (0); MONOCYTES % (MANUAL) 4 % (3-13); NUCLEATED RED BLOOD CELLS 1 /100 WBC (0); SEGMENTED NEUTROPHILS % (MAN) 39 % (42-78); TOTAL CELLS COUNTED 100
[2017-10-12 20:50] LABS: ANISOCYTOSIS SLIGHT; BURR CELLS 1+; POIKILOCYTOSIS 1+; TOXIC GRANULATION 2+; TOXIC VACUOLATION PRESENT
[2017-10-12 20:51] LABS: HELMET CELLS SLIGHT; PLATELET COMMENT ADEQUATE; PLATELET LARGE PRESENT; SCHISTOCYTES 1+
[2017-10-13] MEDS: LORAZEPAM INJ 2 MG/1 ML VIAL IV PRN (00:44)
[2017-10-13] MEDS: HYDROMORPHONE HCL INJ/PF 2 MG/ML AMPULE IV PRN ×2 (01:31→17:27)
[2017-10-13] MEDS ORDERED: LORAZEPAM 24 MG/240 ML BAG IV PRN (02:14)
[2017-10-13] MEDS ORDERED: PHARMACY COMMUNICATION ORDER MC NR (02:15)
[2017-10-13 02:28] LABS: ARTERIAL BLOOD BASE EXCESS -9.4 mmol/L; ARTERIAL BLOOD H2CO3 3.18 mmol/L (1.05-1.35); ARTERIAL BLOOD HCO3 24.6 mmol/L (20-26); ARTERIAL BLOOD O2 SATURATION 97.3 % (94-98); ARTERIAL BLOOD PO2 148.3 mmHg (80-100); ARTERIAL BLOOD TOTAL CO2 27.8 mmol/L (23-27)
[2017-10-13 02:29] LABS: ARTERIAL BLOOD FIO2 15L
[2017-10-13 02:32] LABS: ARTERIAL BLOOD PCO2 105.8 mmHg (35-45); ARTERIAL BLOOD PH 6.98 (7.35-7.45)
[2017-10-13] MEDS ORDERED: LORAZEPAM INJ 2 MG/1 ML VIAL ONE (02:36)
--- NOTE | 2017-10-13 03:20 | RADIOLOGY REPORT (SQ) ---
EXAM DESCRIPTION: CHEST SINGLE VIEW CLINICAL HISTORY: 57 years, Male, intubation COMPARISON: October 11, 2017 FINDINGS: Moderate mixed airspace and interstitial opacity with lower lobe predominance, no pneumothorax, prominent cardiac silhouette, adequate appearing endotracheal tube, likely adequate enteric tube obscured distally, and grossly intact bony thorax. IMPRESSION: Interval worsening includes a moderate pulmonary edema pattern; differential diagnosis includes multifocal pneumonia. Lines and tubes.
[2017-10-13] MEDS ORDERED: RINGERS SOLUTION,LACTATED 1,000 ML IV PRN (03:41)
[2017-10-13] MEDS ORDERED: SODIUM BICARBONATE 8.4% INJ 50 MEQ/50 ML DISP.SYRIN ONE (03:41)
[2017-10-13] MEDS ORDERED: DEXTROSE 50%-WATER 25 GM/50 ML DISP.SYRIN IV ONE ×2 (03:42→03:45)
[2017-10-13] MEDS ORDERED: SODIUM BICARBONATE 8.4% INJ 50 MEQ/50 ML DISP.SYRIN IV ONE (03:45)
[2017-10-13 04:14] LABS: INTERNATIONAL RATION (INR) 0.96; PROTHROMBIN TIME 13.5 SEC (11.4-15.4)
[2017-10-13 04:15] LABS: PARTIAL THROMBOPLASTIN TIME 46.8 SEC (23.5-35.8)
[2017-10-13 04:51] LABS: ARTERIAL BLOOD BASE EXCESS -3.4 mmol/L; ARTERIAL BLOOD HCO3 21.8 mmol/L (20-26); ARTERIAL BLOOD O2 SATURATION 97.4 % (94-98); ARTERIAL BLOOD PCO2 39.8 mmHg (35-45); ARTERIAL BLOOD PH 7.36 (7.35-7.45); ARTERIAL BLOOD PO2 100.1 mmHg (80-100); ARTERIAL BLOOD TOTAL CO2 23.1 mmol/L (23-27)
[2017-10-13 05:04] LABS: ARTERIAL BLOOD FIO2 40%
[2017-10-13] MEDS: CLINDAMYCIN 900 MG/D5W RTU 50 ML IV SCH ×3 (05:19→23:37)
[2017-10-13] MEDS: CEFEPIME HCL 2 GM in DEXTROSE 5%-WATER 50 ML IV SCH ×2 (05:19→17:26)
[2017-10-13 06:27] LABS: HEMATOCRIT 33.6 % (37.9-51.0); HEMOGLOBIN 11.9 g/dL (13.5-17.0); MEAN CORPUSCULAR HEMOGLOBIN 34.9 pg (27.0-33.4); MEAN CORPUSCULAR HGB CONC 35.4 g/dL (32.0-36.0); MEAN CORPUSCULAR VOLUME 99 fl (80-97); PLATELET COUNT 35 10^3/uL (150-450); RED BLOOD COUNT 3.41 10^6/uL (4.35-5.55); RED CELL DISTRIBUTION WIDTH 13.2 % (11.5-14.0); WHITE BLOOD COUNT 13.3 10^3/uL (4.0-10.5)
[2017-10-13 06:58] LABS: ABSOLUTE LYMPHOCYTES# (MANUAL) 1.3 10^3/uL (0.5-4.7); ABSOLUTE MONOCYTES # (MANUAL) 0.4 10^3/uL (0.1-1.4); ABSOLUTE NEUTROPHILS# (MANUAL) 11.6 10^3/uL (1.7-8.2); BAND NEUTROPHILS % (MANUAL) 26 % (3-5); BASOPHILS % (MANUAL) 0 % (0-2); EOSINOPHILS % (MANUAL) 0 % (0-6); LYMPHOCYTES % (MANUAL) 9 % (13-45); METAMYELOCYTES % (MANUAL) 1 % (0); MONOCYTES % (MANUAL) 3 % (3-13); SEGMENTED NEUTROPHILS % (MAN) 60 % (42-78); TOTAL CELLS COUNTED 100
[2017-10-13 07:01] LABS: TOXIC GRANULATION 1+
[2017-10-13 07:02] LABS: ANISOCYTOSIS SLIGHT; PLATELET COMMENT DECREASED; PLATELET LARGE PRESENT; TOXIC VACUOLATION PRESENT
[2017-10-13 07:07] LABS: ANION GAP 5 (5-19); BLOOD UREA NITROGEN 18 mg/dL (7-20); CALCIUM 7.1 mg/dL (8.4-10.2); CARBON DIOXIDE 23 mmol/L (22-30); CHLORIDE 103 mmol/L (98-107); GLUCOSE 126 mg/dL (75-110); POTASSIUM 3.9 mmol/L (3.6-5.0); SODIUM 131.1 mmol/L (137-145)
[2017-10-13] MEDS: IPRATROPIUM/ALBUTEROL 0.5-2.5 MG/3 ML AMPUL NEB SCH ×4 (08:08→20:42)
[2017-10-13] MEDS ORDERED: LEVOFLOXACIN 750 MG/D5W RTU 750 MG/150 ML RTUPB IV SCH (10:00)
[2017-10-13] MEDS: VANCOMYCIN HCL 1,000 MG in DEXTROSE 5%-WATER 250 ML IV SCH ×2 (10:18→17:26)
[2017-10-13] MEDS: NORMAL SALINE 1000 ML 1,000 ML IV PRN (10:19)
[2017-10-13] MEDS: NICOTINE 21 MG/24 HR PATCH.TD24 TD SCH (10:19)
[2017-10-13] MEDS: ENOXAPARIN SODIUM INJ 40 MG/0.4 ML DISP.SYRIN SUBCUT SCH (10:20)
[2017-10-13] MEDS: LEVOFLOXACIN 750 MG/D5W RTU 750 MG/150 ML RTUPB IV SCH (11:42)
[2017-10-13] MEDS: LORAZEPAM 24 MG/240 ML BAG IV PRN ×2 (14:07→17:27)
--- NOTE | 2017-10-13 16:48 | PDOC PROGRESS REPORT ---
Subjective Progress Note for:: 10/13/17 Subjective:: Patient had deterioration in respiratory status overnight and is now intubated. He is sedated but easily arousable. Reason For Visit: SEPSIS Physical Exam Vital Signs: Temp Pulse Resp BP Pulse Ox 99.5 F 95 22 H 117/83 96 10/13/17 14:02 10/13/17 12:33 10/13/17 14:02 10/13/17 14:02 10/13/17 14:02 Intake & Output 10/12/17 10/13/17 10/14/17 06:59 06:59 06:59 Intake Total 404 2372 Output Total 1000 3795 1175 Balance -855 -3522 -1179 Weight 70.8 kg GENERAL: Intubated, in no apparent distress CARDIOVASCULAR: RRR, normal S1-S2 LUNGS: Exam reveals bilateral rhonchi ABDOMEN: Soft, NT, NL bowel sounds EXTREMITIES: Left index finger with healing bite wounds, no significant swelling , nontender. Dorsalis pedis pulses are palpable but decreased. Feet cool with some mottling. NEUROLOGICAL: Sedated Results Laboratory Results: 10/13/17 05:50 10/13/17 06:45 10/12/17 10/12/17 10/12/17 19:35 19:35 19:35 WBC 14.6 H RBC 3.62 L Hgb 12.2 L Hct 35.7 L MCV 99 H MCH 33.9 H MCHC 34.3 RDW 13.1 Plt Count 32 L Seg Neutrophils % Not Reportable Lymphocytes % Not Reportable Monocytes % Not Reportable Eosinophils % Not Reportable Basophils % Not Reportable Absolute Neutrophils Not Reportable Absolute Lymphocytes Not Reportable Absolute Monocytes Not Reportable Absolute Eosinophils Not Reportable Absolute Basophils Not Reportable Carbonic Acid HCO3/H2CO3 Ratio ABG pH ABG pCO2 ABG pO2 ABG HCO3 ABG O2 Saturation ABG Base Excess FiO2 Sodium 128.8 L Potassium 4.0 Chloride 103 Carbon Dioxide 19 L Anion Gap 7 BUN 23 H Creatinine 0.80 Est GFR ( Amer) > 60 Est GFR (Non-Af Amer) > 60 Glucose 82 Lactic Acid Calcium 7.2 L Magnesium 1.7 Total Bilirubin 1.1 AST 408 H ALT 300 H Alkaline Phosphatase 56 Total Protein 5.1 L Albumin 2.7 L 10/13/17 10/13/17 10/13/17 02:10 04:45 05:50 WBC 13.3 H RBC 3.41 L Hgb 11.9 L Hct 33.6 L MCV 99 H MCH 34.9 H MCHC 35.4 RDW 13.2 Plt Count 35 L Seg Neutrophils % Not Reportable Lymphocytes % Not Reportable Monocytes % Not Reportable Eosinophils % Not Reportable Basophils % Not Reportable Absolute Neutrophils Not Reportable Absolute Lymphocytes Not Reportable Absolute Monocytes Not Reportable Absolute Eosinophils Not Reportable Absolute Basophils Not Reportable Carbonic Acid 3.18 H 1.20 HCO3/H2CO3 Ratio 7:1 18:1 ABG pH 6.98 L* 7.36 ABG pCO2 105.8 H* 39.8 ABG pO2 148.3 H 100.1 H ABG HCO3 24.6 21.8 ABG O2 Saturation 97.3 97.4 ABG Base Excess -9.4 -3.4 FiO2 15L 40% Sodium Potassium Chloride Carbon Dioxide Anion Gap BUN Creatinine Est GFR ( Amer) Est GFR (Non-Af Amer) Glucose Lactic Acid Calcium Magnesium Total Bilirubin AST ALT Alkaline Phosphatase Total Protein Albumin 10/13/17 10/13/17 05:55 06:45 WBC RBC Hgb Hct MCV MCH MCHC RDW Plt Count Seg Neutrophils % Lymphocytes % Monocytes % Eosinophils % Basophils % Absolute Neutrophils Absolute Lymphocytes Absolute Monocytes Absolute Eosinophils Absolute Basophils Carbonic Acid HCO3/H2CO3 Ratio ABG pH ABG pCO2 ABG pO2 ABG HCO3 ABG O2 Saturation ABG Base Excess FiO2 Sodium 131.1 L Potassium 3.9 Chloride 103 Carbon Dioxide 23 Anion Gap 5 BUN 18 Creatinine 0.73 Est GFR ( Amer) > 60 Est GFR (Non-Af Amer) > 60 Glucose 126 H Lactic Acid 1.7 Calcium 7.1 L Magnesium Total Bilirubin AST ALT Alkaline Phosphatase Total Protein Albumin Impressions: Abdomen/Pelvis CT 10/11/17 16:29 IMPRESSION: Tiny bilateral pleural effusions. Minimal basilar subsegmental atelectasis. Mild nonspecific pararenal fat stranding. No hydronephrosis or hydroureter. Hand X-Ray 10/11/17 16:43 IMPRESSION: Several punctate radiopaque foreign bodies appear present in the palmar soft tissue interspace between the 1st and 2nd digits. No fracture. Foot X-Ray 10/11/17 16:46 IMPRESSION: NEGATIVE STUDY OF THE LEFT FOOT. NO RADIOGRAPHIC EVIDENCE OF ACUTE INJURY. Head CT 10/11/17 17:05 IMPRESSION: No significant intracranial abnormalities were identified. Other findings as noted above. EVIDENCE OF ACUTE STROKE: NO. Chest X-Ray 10/13/17 00:00 IMPRESSION: Interval worsening includes a moderate pulmonary edema pattern; differential diagnosis includes multifocal pneumonia. Lines and tubes. Assessment & Plan - Diagnosis (1) Sepsis associated hypotension Is this a current diagnosis for this admission?: Yes Plan: Hypotension has improved. Patient now off pressors now. Fluids also on hold due to possible pulmonary edema on chest x-ray. Patient also appears to have pneumonia. We will start Solu-Medrol 40 mg q. 8, also in light of rhonchi on exam. (2) Dog bite Is this a current diagnosis for this admission?: Yes Plan: No doubt that this is the cause of his infection/sepsis? Chest x-ray no concerning for pneumonia. Initial apparent negative imaging may be secondary to severe dehydration. Also sputum culture growing some gram-negative rods as well as yeast. Dr. Quesada of orthopedics has evaluated patient and he does not think I&D is needed --he will leave a note. Blood cultures and urine culture negative to date. We will adjust antibiotics as needed pending culture results. (3) Tobacco dependence Is this a current diagnosis for this admission?: Yes Plan: Nicotine patch. Again, deferring smoking cessation counseling at this time as patient critically ill. (4) Alcohol use Plan: Continue to monitor for DTs. Benzodiazepine IV for DT prophylaxis and for restlessness. (5) Abnormal LFTs Plan: Suspect shock liver. Continue to monitor. (6) Hyponatremia Is this a current diagnosis for this admission?: Yes Plan: Continue to monitor. (7) DIC syndrome Is this a current diagnosis for this admission?: Yes (8) Pneumonia Qualifiers: Pneumonia type: due to unspecified organism Is this a current diagnosis for this admission?: Yes Plan: Suspected pneumonia, possibly community-acquired. This is POA. Will follow culture sensitivity.
[2017-10-13] MEDS: METHYLPREDNISOLONE INJ 40 MG/1 ML SDV IV SCH (17:26)
[2017-10-14] MEDS: LORAZEPAM 24 MG/240 ML BAG IV PRN ×8 (00:07→17:56)
[2017-10-14] MEDS: VANCOMYCIN HCL 1,000 MG in DEXTROSE 5%-WATER 250 ML IV SCH ×2 (03:09→09:42)
[2017-10-14] MEDS: METHYLPREDNISOLONE INJ 40 MG/1 ML SDV IV SCH ×3 (03:09→17:54)
[2017-10-14 05:23] LABS: ARTERIAL BLOOD BASE EXCESS 1.5 mmol/L; ARTERIAL BLOOD H2CO3 1.04 mmol/L (1.05-1.35); ARTERIAL BLOOD HCO3 24.6 mmol/L (20-26); ARTERIAL BLOOD O2 SATURATION 95.6 % (94-98); ARTERIAL BLOOD PCO2 34.6 mmHg (35-45); ARTERIAL BLOOD PH 7.47 (7.35-7.45); ARTERIAL BLOOD PO2 72.5 mmHg (80-100); ARTERIAL BLOOD TOTAL CO2 25.7 mmol/L (23-27)
[2017-10-14 05:26] LABS: ARTERIAL BLOOD FIO2 40%
[2017-10-14 05:32] LABS: HEMATOCRIT 34.7 % (37.9-51.0); MEAN CORPUSCULAR HEMOGLOBIN 34.1 pg (27.0-33.4); MEAN CORPUSCULAR HGB CONC 34.7 g/dL (32.0-36.0); MEAN CORPUSCULAR VOLUME 98 fl (80-97); RED BLOOD COUNT 3.53 10^6/uL (4.35-5.55); RED CELL DISTRIBUTION WIDTH 13.3 % (11.5-14.0); WHITE BLOOD COUNT 15.2 10^3/uL (4.0-10.5)
[2017-10-14] MEDS: CEFEPIME HCL 2 GM in DEXTROSE 5%-WATER 50 ML IV SCH ×2 (05:40→17:55)
[2017-10-14] MEDS: CLINDAMYCIN 900 MG/D5W RTU 50 ML IV SCH ×3 (05:40→22:09)
[2017-10-14 05:43] LABS: PLATELET COUNT 35 10^3/uL (150-450)
[2017-10-14 06:03] LABS: ABSOLUTE LYMPHOCYTES# (MANUAL) 0.6 10^3/uL (0.5-4.7); ABSOLUTE MONOCYTES # (MANUAL) 0.3 10^3/uL (0.1-1.4); ABSOLUTE NEUTROPHILS# (MANUAL) 14.3 10^3/uL (1.7-8.2); BASOPHILS % (MANUAL) 0 % (0-2); EOSINOPHILS % (MANUAL) 0 % (0-6); LYMPHOCYTES % (MANUAL) 4 % (13-45); MONOCYTES % (MANUAL) 2 % (3-13); RBC MORPHOLOGY COMMENT NORMO-CYTIC/CHROMIC; SEGMENTED NEUTROPHILS % (MAN) 94 % (42-78); TOTAL CELLS COUNTED 100; TOXIC VACUOLATION PRESENT
[2017-10-14 06:06] LABS: PLATELET COMMENT DECREASED
[2017-10-14 06:31] LABS: VANCOMYCIN,TROUGH 33.3 ug/mL (5.0-20.0)
--- NOTE | 2017-10-14 07:49 | RADIOLOGY REPORT (SQ) ---
EXAM DESCRIPTION: CHEST SINGLE VIEW CLINICAL HISTORY: 57 years Male, Acute respiratory failure, intubated COMPARISON: 10/13/17. NUMBER OF VIEWS/TECHNIQUE: 1/AP LIMITATIONS: None. FINDINGS: Small left basilar opacity, normal cardiac silhouette, adequate appearing endotracheal tube, likely adequate enteric tube partially obscured distally. No pneumothorax. No acute bone defect. IMPRESSION: Interval worsening includes small left basilar opacity.
[2017-10-14 08:15] LABS: ALANINE AMINOTRANSFERASE 203 U/L (21-72); ALBUMIN 2.7 g/dL (3.5-5.0); ALKALINE PHOSPHATASE 59 U/L (38-126); ANION GAP 6 (5-19); ASPARTATE AMINO TRANSFERASE 159 U/L (17-59); BILIRUBIN,DIRECT 0.2 mg/dL (0.0-0.4); BILIRUBIN,TOTAL 0.6 mg/dL (0.2-1.3); BLOOD UREA NITROGEN 12 mg/dL (7-20); CARBON DIOXIDE 24 mmol/L (22-30); CHLORIDE 104 mmol/L (98-107); GLUCOSE 179 mg/dL (75-110); POTASSIUM 3.6 mmol/L (3.6-5.0); SODIUM 133.8 mmol/L (137-145); TOTAL PROTEIN 4.8 g/dL (6.3-8.2)
[2017-10-14] MEDS: HYDROMORPHONE HCL INJ/PF 2 MG/ML AMPULE IV PRN ×3 (08:38→22:59)
[2017-10-14] MEDS: NICOTINE 21 MG/24 HR PATCH.TD24 TD SCH (09:21)
[2017-10-14] MEDS: ENOXAPARIN SODIUM INJ 40 MG/0.4 ML DISP.SYRIN SUBCUT SCH (09:21)
[2017-10-14] MEDS: IPRATROPIUM/ALBUTEROL 0.5-2.5 MG/3 ML AMPUL NEB SCH ×4 (09:26→19:37)
[2017-10-14 10:16] LABS: FIBRINOGEN 285 mg/dL (209-497); INTERNATIONAL RATION (INR) 0.89; PROTHROMBIN TIME 12.7 SEC (11.4-15.4)
[2017-10-14 10:17] LABS: PARTIAL THROMBOPLASTIN TIME 38.7 SEC (23.5-35.8)
[2017-10-14 10:26] LABS: VANCOMYCIN,TROUGH 13.9 ug/mL (5.0-20.0)
[2017-10-14 11:34] LABS: D-DIMER > 20.00 ug/mL (0.00-0.50)
--- NOTE | 2017-10-14 12:10 | PDOC CONSULTATION ---
Consultation Consult Date: 10/14/17 Consult reason:: Hematology consultation was requested for patient with septic shock and possible DIC. History of Present Illness Admission Date/PCP: 10/11/17 18:42 History of Present Illness: Patient is currently in the ICU sedated on ventilator but history per report is as follows: "JOSEPH BUSBY is a 57 year old male apparently with no significant medical problem, but is a smoker and uses alcohol regularly. Patient reported having cough for about 1 to 2 weeks, nonproductive. He works in the [employer] and continue to had continued to work per his . Last night after he returned from work he had significant chills and had a rapid strep in the blanket. He could not eat due to loss of appetite. This morning he got worse with fever, chills, dizziness, malaise and syncope. Patient also reports dog bite left index finger and patient thinks he may also have begun to be sick after the bite. In the ED where he was found to be hypotensive systolic of 70s. He received 3 L bolus of Ringer's lactate with persistent hypotension. He has not been started on levo fed. Patient also has received Levaquin and vancomycin antibiotics. He reports allergies to penicillin with possible anaphylaxis, but ED physician called ID at [facility] and benefits of cefepime given the history of dog bite was thought to outweigh the risk, so patient also received cefepime." Over the last 24 hours, nurses report some blood from NG/OG tube. He received FFP but has not required pRBCs or PLT. His feet are becoming more cyanotic and cold. He is mottled on his lower legs and feet. Pulses were palpable in feet yesterday, but today, not obtainable by doppler. Since admission, his Cr and LFTs have greatly improved. He remains with low-grade fever. Past Medical History Past Medical History: Unable to obtain from patient. All history of per medical records. Cardiac Medical History: Reports: None Pulmonary Medical History: Reports: None Endocrine Medical History: Reports: None Renal/ Medical History: Reports: None Malignancy Medical History: Reports: None GI Medical History: Reports: Gastroesophageal Reflux Disease Musculoskeltal Medical History: Reports: None Skin Medical History: Reports: None Psychiatric Medical History: Reports: Depression Traumatic Medical History: Reports: None Infectious Medical History: Reports: None Past Surgical History Past Surgical History: Reports: Cholecystectomy Social History Lives with: Spouse/Significant other Smoking Status: Current Every Day Smoker Cigarettes Packs Per Day: 3 Last Time Smoked: 10/11/17 Frequency of Alcohol Use: Heavy Drugs: None Hx Prescription Drug Abuse: No - Advance Directive Resuscitation Status: Full Code Family History Family History: None Parental Family History Reviewed: No Children Family History Reviewed: No Sibling(s) Family History Reviewed.: No Medication/Allergy Home Medications: No Home Medications 10/11/17 Allergies/Adverse Reactions: Penicillins Allergy (Verified 10/11/17 15:29) Review of Systems ROS unobtainable: Due to endotracheal tube Physical Exam Vital Signs: Temp Pulse Resp BP Pulse Ox 98.8 F 84 14 90/69 L 96 10/14/17 10:00 10/14/17 10:00 10/14/17 10:00 10/14/17 10:00 10/14/17 10:00 Intake & Output 10/13/17 10/14/17 10/15/17 06:59 06:59 06:59 Intake Total 2372 4622 Output Total 3795 5700 675 Balance -1423 -1078 -675 Weight 70.8 kg 68.7 kg General appearance: PRESENT: well-nourished Exam: 57 year old male. Sedated on ventilator. Head exam: PRESENT: normocephalic, other - petechei and abrasions on tip of nose , consistent with Eye exam: PRESENT: PERRLA, other - Very small pupils.. ABSENT: scleral icterus Ear exam: PRESENT: normal external ear exam Mouth exam: PRESENT: moist, other - ET tube in place. Neck exam: ABSENT: JVD, lymphadenopathy Respiratory exam: PRESENT: clear to auscultation nuvia, unlabored Cardiovascular exam: PRESENT: RRR. ABSENT: clicks, diastolic murmur, gallop, systolic murmur Pulses: PRESENT: other - O cannot palpate pulses in the lower extremities. Vascular exam: PRESENT: other - As per HPI GI/Abdominal exam: PRESENT: hypoactive bowel sounds, soft. ABSENT: tenderness Extremities exam: ABSENT: pedal edema Neurological exam: PRESENT: other - Sedated on vent. Skin exam: PRESENT: mottled - as per HPI. Good skin tone and warmth everywhere except feet and ankles. Results Laboratory Results: 10/14/17 04:50 10/14/17 07:45 10/14/17 10/14/17 10/14/17 04:50 04:50 04:50 WBC 15.2 H RBC 3.53 L Hgb 12.0 L Hct 34.7 L MCV 98 H MCH 34.1 H MCHC 34.7 RDW 13.3 Plt Count 35 L Seg Neutrophils % Not Reportable Lymphocytes % Not Reportable Monocytes % Not Reportable Eosinophils % Not Reportable Basophils % Not Reportable Absolute Neutrophils Not Reportable Absolute Lymphocytes Not Reportable Absolute Monocytes Not Reportable Absolute Eosinophils Not Reportable Absolute Basophils Not Reportable Carbonic Acid HCO3/H2CO3 Ratio ABG pH ABG pCO2 ABG pO2 ABG HCO3 ABG O2 Saturation ABG Base Excess FiO2 Sodium Cancelled Potassium Cancelled Chloride Cancelled Carbon Dioxide Cancelled Anion Gap Cancelled BUN Cancelled Creatinine Cancelled 0.67 Est GFR ( Amer) Cancelled > 60 Est GFR (Non-Af Amer) Cancelled > 60 Glucose Cancelled Calcium Cancelled Magnesium Cancelled Total Bilirubin Cancelled AST Cancelled ALT Cancelled Alkaline Phosphatase Cancelled Total Protein Cancelled Albumin Cancelled 10/14/17 10/14/17 04:50 07:45 WBC RBC Hgb Hct MCV MCH MCHC RDW Plt Count Seg Neutrophils % Lymphocytes % Monocytes % Eosinophils % Basophils % Absolute Neutrophils Absolute Lymphocytes Absolute Monocytes Absolute Eosinophils Absolute Basophils Carbonic Acid 1.04 L HCO3/H2CO3 Ratio 23:1 ABG pH 7.47 H ABG pCO2 34.6 L ABG pO2 72.5 L ABG HCO3 24.6 ABG O2 Saturation 95.6 ABG Base Excess 1.5 FiO2 40% Sodium 133.8 L Potassium 3.6 Chloride 104 Carbon Dioxide 24 Anion Gap 6 BUN 12 Creatinine 0.71 Est GFR ( Amer) > 60 Est GFR (Non-Af Amer) > 60 Glucose 179 H Calcium 8.0 L Magnesium 2.3 Total Bilirubin 0.6 AST 159 H ALT 203 H Alkaline Phosphatase 59 Total Protein 4.8 L Albumin 2.7 L Impressions: Abdomen/Pelvis CT 10/11/17 16:29 IMPRESSION: Tiny bilateral pleural effusions. Minimal basilar subsegmental atelectasis. Mild nonspecific pararenal fat stranding. No hydronephrosis or hydroureter. Hand X-Ray 10/11/17 16:43 IMPRESSION: Several punctate radiopaque foreign bodies appear present in the palmar soft tissue interspace between the 1st and 2nd digits. No fracture. Foot X-Ray 10/11/17 16:46 IMPRESSION: NEGATIVE STUDY OF THE LEFT FOOT. NO RADIOGRAPHIC EVIDENCE OF ACUTE INJURY. Head CT 10/11/17 17:05 IMPRESSION: No significant intracranial abnormalities were identified. Other findings as noted above. EVIDENCE OF ACUTE STROKE: NO. Chest X-Ray 10/14/17 06:00 IMPRESSION: Interval worsening includes small left basilar opacity. Assessment & Plan - Diagnosis (1) DIC syndrome Is this a current diagnosis for this admission?: Yes Plan: Fibrinogen still normal. PT/PTT not terrible. Platelets are still low. I will check Doppler U/S arterial on both legs. I agree with low-dose heparin, but watch very closely for bleeding. Consider platelet transfusion to keep PLT >50. Transfuse Cryoprecipitate for Fibrinogen <100. None indicated currently. Continue to monitor CBC. Consider ECHO. - Plan Summary Plan Summary: Thank you for the consult. I will continue to follow. Please call me with any concerns.
[2017-10-14] MEDS: LEVOFLOXACIN 750 MG/D5W RTU 750 MG/150 ML RTUPB IV SCH (12:29)
[2017-10-14] MEDS: HEPARIN SODIUM,PORCINE/D5W 25,000 UNIT/250 ML RTUINJ IV PRN (14:00)
--- NOTE | 2017-10-14 17:22 | PDOC PROGRESS REPORT ---
Subjective Progress Note for:: 10/14/17 Subjective:: Patient remains sedated on ventilator. He awakens when sedation turned down. He has low-grade fever. Reason For Visit: SEPSIS Physical Exam Vital Signs: Temp Pulse Resp BP Pulse Ox 98.8 F 89 14 95/72 L 96 10/14/17 15:00 10/14/17 14:00 10/14/17 14:02 10/14/17 14:02 10/14/17 15:00 Intake & Output 10/13/17 10/14/17 10/15/17 06:59 06:59 06:59 Intake Total 2372 4622 Output Total 3791 1120 1360 Balance -1941 -6356 -1360 Weight 70.8 kg 68.7 kg GENERAL: Intubated, in no apparent distress CARDIOVASCULAR: RRR, normal S1-S2 LUNGS: Exam reveals few bilateral rhonchi ABDOMEN: Soft, NT, NL bowel sounds EXTREMITIES: Left index finger with healing bite wounds, no significant swelling , nontender. Dorsalis pedis pulses decreased. Feet cold with some mottling. NEUROLOGICAL: Sedated Results Laboratory Results: 10/14/17 04:50 10/14/17 07:45 10/14/17 10/14/17 10/14/17 04:50 04:50 04:50 WBC 15.2 H RBC 3.53 L Hgb 12.0 L Hct 34.7 L MCV 98 H MCH 34.1 H MCHC 34.7 RDW 13.3 Plt Count 35 L Seg Neutrophils % Not Reportable Lymphocytes % Not Reportable Monocytes % Not Reportable Eosinophils % Not Reportable Basophils % Not Reportable Absolute Neutrophils Not Reportable Absolute Lymphocytes Not Reportable Absolute Monocytes Not Reportable Absolute Eosinophils Not Reportable Absolute Basophils Not Reportable Carbonic Acid HCO3/H2CO3 Ratio ABG pH ABG pCO2 ABG pO2 ABG HCO3 ABG O2 Saturation ABG Base Excess FiO2 Sodium Cancelled Potassium Cancelled Chloride Cancelled Carbon Dioxide Cancelled Anion Gap Cancelled BUN Cancelled Creatinine Cancelled 0.67 Est GFR ( Amer) Cancelled > 60 Est GFR (Non-Af Amer) Cancelled > 60 Glucose Cancelled Calcium Cancelled Magnesium Cancelled Total Bilirubin Cancelled AST Cancelled ALT Cancelled Alkaline Phosphatase Cancelled Total Protein Cancelled Albumin Cancelled 10/14/17 10/14/17 04:50 07:45 WBC RBC Hgb Hct MCV MCH MCHC RDW Plt Count Seg Neutrophils % Lymphocytes % Monocytes % Eosinophils % Basophils % Absolute Neutrophils Absolute Lymphocytes Absolute Monocytes Absolute Eosinophils Absolute Basophils Carbonic Acid 1.04 L HCO3/H2CO3 Ratio 23:1 ABG pH 7.47 H ABG pCO2 34.6 L ABG pO2 72.5 L ABG HCO3 24.6 ABG O2 Saturation 95.6 ABG Base Excess 1.5 FiO2 40% Sodium 133.8 L Potassium 3.6 Chloride 104 Carbon Dioxide 24 Anion Gap 6 BUN 12 Creatinine 0.71 Est GFR ( Amer) > 60 Est GFR (Non-Af Amer) > 60 Glucose 179 H Calcium 8.0 L Magnesium 2.3 Total Bilirubin 0.6 AST 159 H ALT 203 H Alkaline Phosphatase 59 Total Protein 4.8 L Albumin 2.7 L 10/13/17 02:50 Tracheal Aspirate Gram Stain - Final 10/13/17 02:50 Tracheal Aspirate Sputum Culture - Final Yeast, Not Shoshana Albicans Normal Agustina Absent Impressions: Abdomen/Pelvis CT 10/11/17 16:29 IMPRESSION: Tiny bilateral pleural effusions. Minimal basilar subsegmental atelectasis. Mild nonspecific pararenal fat stranding. No hydronephrosis or hydroureter. Hand X-Ray 10/11/17 16:43 IMPRESSION: Several punctate radiopaque foreign bodies appear present in the palmar soft tissue interspace between the 1st and 2nd digits. No fracture. Foot X-Ray 10/11/17 16:46 IMPRESSION: NEGATIVE STUDY OF THE LEFT FOOT. NO RADIOGRAPHIC EVIDENCE OF ACUTE INJURY. Head CT 10/11/17 17:05 IMPRESSION: No significant intracranial abnormalities were identified. Other findings as noted above. EVIDENCE OF ACUTE STROKE: NO. Chest X-Ray 10/14/17 06:00 IMPRESSION: Interval worsening includes small left basilar opacity. Assessment & Plan - Diagnosis (1) Sepsis associated hypotension Is this a current diagnosis for this admission?: Yes Plan: Hypotension has improved. Patient remains off vesopressors now. Fluids also on hold due to possible pulmonary edema on chest x-ray. Patient also appears to have pneumonia. We will continue Solu-Medrol 40 mg q. 8, also in light of possible copd in this long-time smoker. Blood cultures growing gram neg rods, sputum GNR and yeast -- Will D/c Vanco, Levoquin; start Fluconazole IV, continue Cefepime, Clinda. (2) DIC syndrome Is this a current diagnosis for this admission?: Yes Plan: Suspect DIC, given thrombocytopenia, coagulopathy. Patient received FFP. Consulted Dr. Werner of [facility]/once and her recommendations appreciated. We will continue to monitor CBC and platelets, follow coags, continue antibiotics and supportive care. Pt started on low dose heparin due to concern for ischemic distal limp. Check echo (3) Dog bite Is this a current diagnosis for this admission?: Yes Plan: Now DOUBT that this is the cause of his infection/sepsis. Chest x-ray now concerning for pneumonia. Initial apparent negative imaging may be secondary to severe dehydration. Also sputum culture growing some gram-negative rods as well as yeast, although that could be colonization -- will treat, anyway. I spoke with the Dr. Quesada of orthopedics 10/13/17 who reported evaluating the patient did not think I&D was needed --he promised to leave a note. (4) Alcohol use Plan: Continue to monitor for DTs. Benzodiazepine IV for DT prophylaxis and for restlessness. (5) Abnormal LFTs Plan: Suspect shock liver. Improving. Continue to monitor. (6) Hyponatremia Is this a current diagnosis for this admission?: Yes Plan: Continue to monitor. (7) Pneumonia Qualifiers: Pneumonia type: due to unspecified organism Is this a current diagnosis for this admission?: Yes Plan: Suspected pneumonia, possibly community-acquired. This is POA. Will follow culture sensitivity. Also with possible yeast, since found in lungs. Abx changes as in sepsis. (8) Tobacco dependence Is this a current diagnosis for this admission?: Yes Plan: Nicotine patch. Deferred smoking cessation counseling at this time as patient critically ill.
[2017-10-14] MEDS ORDERED: FLUCONAZOLE 200 MG/NS RTU 100 ML IV ONE (18:30)
[2017-10-15] MEDS: LORAZEPAM 24 MG/240 ML BAG IV PRN ×8 (00:37→22:17)
[2017-10-15] MEDS: METHYLPREDNISOLONE INJ 40 MG/1 ML SDV IV SCH ×3 (01:13→17:05)
[2017-10-15 05:11] LABS: HEMATOCRIT 35.2 % (37.9-51.0); HEMOGLOBIN 12.2 g/dL (13.5-17.0); INTERNATIONAL RATION (INR) 0.92; MEAN CORPUSCULAR HEMOGLOBIN 34.1 pg (27.0-33.4); MEAN CORPUSCULAR HGB CONC 34.5 g/dL (32.0-36.0); MEAN CORPUSCULAR VOLUME 99 fl (80-97); RED BLOOD COUNT 3.57 10^6/uL (4.35-5.55); RED CELL DISTRIBUTION WIDTH 13.4 % (11.5-14.0); WHITE BLOOD COUNT 17.8 10^3/uL (4.0-10.5)
[2017-10-15 05:12] LABS: FIBRINOGEN 215 mg/dL (209-497); PARTIAL THROMBOPLASTIN TIME 36.4 SEC (23.5-35.8)
[2017-10-15 05:16] LABS: ALANINE AMINOTRANSFERASE 166 U/L (21-72); ALBUMIN 2.5 g/dL (3.5-5.0); ALKALINE PHOSPHATASE 59 U/L (38-126); ANION GAP 5 (5-19); ASPARTATE AMINO TRANSFERASE 105 U/L (17-59); BILIRUBIN,DIRECT 0.4 mg/dL (0.0-0.4); BILIRUBIN,TOTAL 0.4 mg/dL (0.2-1.3); BLOOD UREA NITROGEN 14 mg/dL (7-20); CALCIUM 8.1 mg/dL (8.4-10.2); CARBON DIOXIDE 26 mmol/L (22-30); CHLORIDE 106 mmol/L (98-107); GLUCOSE 130 mg/dL (75-110); POTASSIUM 3.6 mmol/L (3.6-5.0); TOTAL PROTEIN 4.6 g/dL (6.3-8.2)
[2017-10-15 05:26] LABS: ABSOLUTE LYMPHOCYTES# (MANUAL) 0.9 10^3/uL (0.5-4.7); ABSOLUTE NEUTROPHILS# (MANUAL) 16.9 10^3/uL (1.7-8.2); BASOPHILS % (MANUAL) 0 % (0-2); EOSINOPHILS % (MANUAL) 0 % (0-6); LYMPHOCYTES % (MANUAL) 4 % (13-45); MONOCYTES % (MANUAL) 0 % (3-13); SEGMENTED NEUTROPHILS % (MAN) 95 % (42-78); TOTAL CELLS COUNTED 100
[2017-10-15 05:29] LABS: RBC MORPHOLOGY COMMENT NORMO-CYTIC/CHROMIC
[2017-10-15 05:30] LABS: PLATELET COMMENT DECREASED; PLATELET COUNT 63 10^3/uL (150-450)
[2017-10-15] MEDS: HYDROMORPHONE HCL INJ/PF 2 MG/ML AMPULE IV PRN ×4 (06:51→22:17)
[2017-10-15] MEDS: CEFEPIME HCL 2 GM in DEXTROSE 5%-WATER 50 ML IV SCH (06:52)
[2017-10-15] MEDS: CLINDAMYCIN 900 MG/D5W RTU 50 ML IV SCH ×3 (06:53→22:16)
[2017-10-15 07:29] LABS: ARTERIAL BLOOD BASE EXCESS 1.6 mmol/L; ARTERIAL BLOOD FIO2 50%; ARTERIAL BLOOD H2CO3 1.18 mmol/L (1.05-1.35); ARTERIAL BLOOD HCO3 25.8 mmol/L (20-26); ARTERIAL BLOOD O2 SATURATION 95.8 % (94-98); ARTERIAL BLOOD PCO2 39.3 mmHg (35-45); ARTERIAL BLOOD PH 7.44 (7.35-7.45); ARTERIAL BLOOD PO2 77.4 mmHg (80-100)
--- NOTE | 2017-10-15 08:29 | PDOC PROGRESS REPORT ---
Subjective Progress Note for:: 10/15/17 Subjective:: Patient remains sedated on vent. Nurses report that he awakens easily when sedation is decreased and that he is in considerable pain upon awakening. He also shows evidence of alcohol withdraw when awake. Nurses do not report any new problems, but ask about feeding, as it has been several days without any nutrition. ROS Unable to obtain due to vent. Reason For Visit: SEPSIS Physical Exam Vital Signs: Temp Pulse Resp BP Pulse Ox 99.0 F 75 14 98/69 L 95 10/15/17 08:00 10/15/17 08:00 10/15/17 08:00 10/15/17 08:00 10/15/17 08:00 Intake & Output 10/14/17 10/15/17 10/16/17 06:59 06:59 06:59 Intake Total 4622 2745 Output Total 5700 2865 Balance -1078 -120 Weight 68.7 kg 72 kg General appearance: PRESENT: no acute distress Head exam: PRESENT: other - Facial skin changes remain. Eye exam: ABSENT: scleral icterus Mouth exam: PRESENT: moist, other - ET tube in place. OG tube in place. OG draining blood tinged bile colored fluid. Respiratory exam: PRESENT: clear to auscultation nuvia, unlabored Cardiovascular exam: PRESENT: RRR. ABSENT: clicks, systolic murmur Vascular exam: PRESENT: other - Both feet and ankles remain cold and mottled. Extremities exam: ABSENT: pedal edema Results Laboratory Results: 10/15/17 04:30 10/15/17 04:30 10/15/17 10/15/17 10/15/17 04:30 04:30 04:30 WBC 17.8 H RBC 3.57 L Hgb 12.2 L Hct 35.2 L MCV 99 H MCH 34.1 H MCHC 34.5 RDW 13.4 Plt Count 63 L Seg Neutrophils % Not Reportable Lymphocytes % Not Reportable Monocytes % Not Reportable Eosinophils % Not Reportable Basophils % Not Reportable Absolute Neutrophils Not Reportable Absolute Lymphocytes Not Reportable Absolute Monocytes Not Reportable Absolute Eosinophils Not Reportable Absolute Basophils Not Reportable Carbonic Acid 1.18 HCO3/H2CO3 Ratio 21:1 ABG pH 7.44 ABG pCO2 39.3 ABG pO2 77.4 L ABG HCO3 25.8 ABG O2 Saturation 95.8 ABG Base Excess 1.6 FiO2 50% Sodium 137.0 Potassium 3.6 Chloride 106 Carbon Dioxide 26 Anion Gap 5 BUN 14 Creatinine 0.76 Est GFR ( Amer) > 60 Est GFR (Non-Af Amer) > 60 Glucose 130 H Calcium 8.1 L Total Bilirubin 0.4 AST 105 H ALT 166 H Alkaline Phosphatase 59 Total Protein 4.6 L Albumin 2.5 L 10/13/17 02:50 Tracheal Aspirate Gram Stain - Final 10/13/17 02:50 Tracheal Aspirate Sputum Culture - Final Yeast, Not Shoshana Albicans Normal Agustina Absent Impressions: Abdomen/Pelvis CT 10/11/17 16:29 IMPRESSION: Tiny bilateral pleural effusions. Minimal basilar subsegmental atelectasis. Mild nonspecific pararenal fat stranding. No hydronephrosis or hydroureter. Hand X-Ray 10/11/17 16:43 IMPRESSION: Several punctate radiopaque foreign bodies appear present in the palmar soft tissue interspace between the 1st and 2nd digits. No fracture. Foot X-Ray 10/11/17 16:46 IMPRESSION: NEGATIVE STUDY OF THE LEFT FOOT. NO RADIOGRAPHIC EVIDENCE OF ACUTE INJURY. Head CT 10/11/17 17:05 IMPRESSION: No significant intracranial abnormalities were identified. Other findings as noted above. EVIDENCE OF ACUTE STROKE: NO. Chest X-Ray 10/14/17 06:00 IMPRESSION: Interval worsening includes small left basilar opacity. Assessment & Plan - Diagnosis (1) DIC syndrome Is this a current diagnosis for this admission?: Yes Plan: I am told that the U/S of bilateral lower extremities yesterday showed no blood flow to the feet, but no evidence of blood clots. Most likely this is from microemboli. He does appear to have severe pain from this. All of his labs appear to be improving. His low-grade temp is most likley from the vascular system and possibly infection at this point. I agree with current antibiotics. Still no source of the infection. I believe he should have transesophageal ECHO at some point in the future to make sure there are not valvular vegitations. I agree with starting tube feeds. Consider POT SANDER or duragesic for pain control once he is awake. I am happy to help with this, if needed. No blood products indicated at this time. Continue Heparin drip. May increase to full dose now that PLT>50, if needed.
[2017-10-15] MEDS: IPRATROPIUM/ALBUTEROL 0.5-2.5 MG/3 ML AMPUL NEB SCH ×4 (08:30→20:02)
--- NOTE | 2017-10-15 09:41 | PDOC PROGRESS REPORT ---
Subjective Progress Note for:: 10/15/17 Subjective:: Patient remains intubated and sedated He easily awakens when sedation turned off. Most reports evidence with pain in his feet when awake. Also signs of of alcohol withdrawal on awakening. He has low-grade fever. He did not receive platelet transfusions last night, and platelet has improved to 62 this morning. Reason For Visit: SEPSIS Physical Exam Vital Signs: Temp Pulse Resp BP Pulse Ox 99.0 F 75 14 98/69 L 95 10/15/17 08:00 10/15/17 08:00 10/15/17 08:00 10/15/17 08:00 10/15/17 08:00 Intake & Output 10/14/17 10/15/17 10/16/17 06:59 06:59 06:59 Intake Total 4622 2745 Output Total 5700 2865 Balance -1078 -120 Weight 68.7 kg 72 kg GENERAL: Intubated, in no apparent distress CARDIOVASCULAR: RRR, normal S1-S2 LUNGS: clear to auscultation ABDOMEN: Soft, NT, NL bowel sounds EXTREMITIES: Left index finger with bite wounds, no pus/discharge. Dorsalis pedis barely palpable. Feet warm up today but wrapped in blankets. There remains some mottling. NEUROLOGICAL: Sedated Results Laboratory Results: 10/15/17 04:30 10/15/17 04:30 Vent settings -- --SIMV 14, TV 500, PA standing, PEEP 5, FiO2 50% 10/15/17 10/15/17 10/15/17 04:30 04:30 04:30 WBC 17.8 H RBC 3.57 L Hgb 12.2 L Hct 35.2 L MCV 99 H MCH 34.1 H MCHC 34.5 RDW 13.4 Plt Count 63 L Seg Neutrophils % Not Reportable Lymphocytes % Not Reportable Monocytes % Not Reportable Eosinophils % Not Reportable Basophils % Not Reportable Absolute Neutrophils Not Reportable Absolute Lymphocytes Not Reportable Absolute Monocytes Not Reportable Absolute Eosinophils Not Reportable Absolute Basophils Not Reportable Carbonic Acid 1.18 HCO3/H2CO3 Ratio 21:1 ABG pH 7.44 ABG pCO2 39.3 ABG pO2 77.4 L ABG HCO3 25.8 ABG O2 Saturation 95.8 ABG Base Excess 1.6 FiO2 50% Sodium 137.0 Potassium 3.6 Chloride 106 Carbon Dioxide 26 Anion Gap 5 BUN 14 Creatinine 0.76 Est GFR ( Amer) > 60 Est GFR (Non-Af Amer) > 60 Glucose 130 H Calcium 8.1 L Total Bilirubin 0.4 AST 105 H ALT 166 H Alkaline Phosphatase 59 Total Protein 4.6 L Albumin 2.5 L 10/13/17 02:50 Tracheal Aspirate Gram Stain - Final 10/13/17 02:50 Tracheal Aspirate Sputum Culture - Final Yeast, Not Shoshana Albicans Normal Agustina Absent Impressions: Abdomen/Pelvis CT 10/11/17 16:29 IMPRESSION: Tiny bilateral pleural effusions. Minimal basilar subsegmental atelectasis. Mild nonspecific pararenal fat stranding. No hydronephrosis or hydroureter. Hand X-Ray 10/11/17 16:43 IMPRESSION: Several punctate radiopaque foreign bodies appear present in the palmar soft tissue interspace between the 1st and 2nd digits. No fracture. Foot X-Ray 10/11/17 16:46 IMPRESSION: NEGATIVE STUDY OF THE LEFT FOOT. NO RADIOGRAPHIC EVIDENCE OF ACUTE INJURY. Head CT 10/11/17 17:05 IMPRESSION: No significant intracranial abnormalities were identified. Other findings as noted above. EVIDENCE OF ACUTE STROKE: NO. Chest X-Ray 10/14/17 06:00 IMPRESSION: Interval worsening includes small left basilar opacity. Assessment & Plan - Diagnosis (1) Sepsis Is this a current diagnosis for this admission?: Yes Plan: Slow improvement, improving platelets. Low grade fever may be secondary to vascular issues vs persistent infection. Blood cultures growing gram neg rods, sputum GNR and yeast Called microbiology and he is still working on identity and sensitivity. Will adjust antibiotics pending results. We will repeat blood cultures in a.m. Source of infection unclear. Patient appears to have pneumonia. We will continue Solu-Medrol 40 mg q. 8, also in light of possible copd in this long- time smoker. --Continue fluconazole IV, continue Cefepime, Clinda. Echocardiogram ordered and pending. Consider DYLAN if this is unrevealing for possible source of infection. (2) Acute respiratory failure Is this a current diagnosis for this admission?: Yes Plan: Currently on vent. Weaning and extubation as tolerated. Dr. Veras of pulmonology was consulted. Insert NG tube and start feeding pending weaning from vent and extubation. (3) Sepsis associated hypotension Is this a current diagnosis for this admission?: Yes Plan: Hypotension remains improved. Patient remains off vesopressors now. Fluids also on hold due to possible pulmonary edema on chest x-ray--we will follow-up chest x-ray on consider restarting IV fluid in pulmonary edema better. (4) DIC syndrome Is this a current diagnosis for this admission?: Yes Plan: Suspect DIC, given thrombocytopenia, coagulopathy. His numbers appears to be improving today, platelets markedly improved at [address] Werner's follow-up appreciated. Patient had received FFP. Consulted Dr. Werner of [facility]/once and her recommendations appreciated. We will continue to monitor CBC and platelets, follow coags, continue antibiotics and supportive care. Pt started on low dose heparin due to concern for ischemic distal limbs. Suspect ischemic fluid secondary to microemboli. Increase Dilaudid as needed for pain. Duragesic patch vs AIRCRAFT INSTRUMENT ENGINEER pump when patient awake/extubated. (5) Dog bite Is this a current diagnosis for this admission?: Yes Plan: Now DOUBT that this is the cause of his infection/sepsis. Continue antibiotic regimen. Of note I spoke with the Dr. Quesada of orthopedics 10/13/17 who reported evaluating the patient did not think I&D was needed --he promised to leave a note. (6) Alcohol use Plan: Continue to monitor for DTs. Benzodiazepine IV for DT prophylaxis and for restlessness. (7) Abnormal LFTs Plan: Suspect shock liver. Improving. Continue to monitor. (8) Hyponatremia Is this a current diagnosis for this admission?: Yes Plan: Continue to monitor. (9) Pneumonia Qualifiers: Pneumonia type: due to unspecified organism Is this a current diagnosis for this admission?: Yes Plan: Suspected pneumonia, possibly community-acquired. Will continue to follow follow culture sensitivity. Also with possible yeast, since found in lungs. Abx as in sepsis. (10) Tobacco dependence Is this a current diagnosis for this admission?: Yes
[2017-10-15] MEDS: FLUCONAZOLE 200 MG/NS RTU 100 ML IV SCH (09:42)
[2017-10-15] MEDS: NICOTINE 21 MG/24 HR PATCH.TD24 TD SCH (09:43)
--- NOTE | 2017-10-15 10:32 | RADIOLOGY REPORT (SQ) ---
EXAM DESCRIPTION: CHEST SINGLE VIEW COMPLETED DATE/TIME: 10/15/2017 10:11 am REASON FOR STUDY: Acute respiratory failure, sepsis COMPARISON: 10/14/2017 NUMBER OF VIEWS: One view. TECHNIQUE: Single frontal radiographic image of the chest acquired. LIMITATIONS: None. FINDINGS: LUNGS AND PLEURA: Small pleural effusions. No pneumothorax. MEDIASTINUM AND HILAR STRUCTURES: Stable heart size and mediastinal structures. HEART AND VASCULAR STRUCTURES: Stable appearance. SUPPORT DEVICES: Appropriate location without change. BONES: No acute findings. OTHER: No other significant finding. IMPRESSION: Small pleural effusions. No pneumothorax. TECHNICAL DOCUMENTATION: JOB ID: [id number] [email or web address] All Rights Reserved
--- NOTE | 2017-10-15 12:45 | XCELERA REPORT ---
[address] [address] Lower Extremity Venous Evaluation Name: JOSEPH BUSBY Age: 57 yrs Gender: Male : 1960 Patient Status: Inpatient Patient Location: ICU^610^A Study Date: 10/14/2017 12:22 PM Procedure: Color flow and duplex imaging bilaterally of the veins of the lower extremities as well as the Common Femoral veins. Reason For Study: Hypoperfusion Ordering Physician: HANS FRAZIER Performed By: Mercedes Kwon Right Sided Venous Evaluation Common Femoral and Femoral not visualized due to inaccessibility. Otherwise normal vessel filling wall to wall, compression and augmentation as well as Colour flow down to the infrageniculate veins. Left Sided Venous Evaluation Normal vessel filling wall to wall, compression and augmentation as well as Colour flow down to the infrageniculate veins. Interpretation Summary No duplex evidence of DVT or obstruction in the bilateral lower extremities. : HANS FRAZIER > John Salgado
--- NOTE | 2017-10-15 12:50 | XCELERA REPORT ---
[address] [address] Lower Extremity Arterial Evaluation Name: JOSEPH BUSBY Age: 57 yrs Gender: Male : 1960 Patient Status: Inpatient Patient Location: ICU^[facility]^A Study Date: 10/14/2017 12:38 PM Procedure: A color flow and duplex scan of the lower extremity arteries was performed bilaterally with velocity and waveform analysis. Reason For Study: Hypoperfusion Ordering Physician: HANS FRAZIER Performed By: Mercedes Kwon Measurements and Calculations Right Left COMPUTATIONAL THEORY SCIENTIST PSV 71.2 cm/sec Prox PFA PSV -58.1 cm/sec Prox SFA PSV 88.6 cm/sec Mid SFA PSV -86.4 -87.7 cm/sec Dist SFA PSV -70.6 -74.6 cm/sec Prox Pop A PSV 48.2 46.9 cm/sec Prox VIDAL PSV -32.8 cm/sec Mid VIDAL PSV -16.5 cm/sec Dist VIDAL PSV 43.0 cm/sec Mid AUTOMOTIVE PARTS PERSON PSV 24.2 cm/sec Dist AUTOMOTIVE PARTS PERSON PSV -18.7 cm/sec Dist Lidia A PSV -51.4 cm/sec Right Side Arterial Evaluation Occluded distal Posterior and Anterior Tibial arteries. Otherwise completely normal velocity and triphasic waveforms noted from the Common Femoral artery to the infrageniculate vessels. Occlusion in distal infrageniculate arteries, Completely normal proximally. Ankle Brachial index was not done. Left Side Arterial Evaluation Occluded Dorsalis Pesis atery. Otherwise completely normal velocity and triphasic waveforms noted from the Common Femoral artery to the infrageniculate vessels. Occlusion in Dorsalis Pesis atery, Completely normal proximally. Ankle Brachial index was not done. Interpretation Summary Unusual pattern of normal vessels with very distal thrombosis. quite likely due to low flow state. : HANS FRAZIER > John Salgado
[2017-10-15] MEDS: CEFEPIME HCL 2 GM in NORMAL SALINE 100 ML IV SCH (17:04)
--- NOTE | 2017-10-15 19:05 | PDOC CONSULTATION ---
Consultation Consult Date: 10/15/17 Attending physician:: LISSETTE BANERJEE Consult reason:: resp fail/sepsis History of Present Illness Admission Date/PCP: 10/11/17 18:42 History of Present Illness: Patient is currently in the ICU sedated on ventilator but history per report is as follows: "JOSEPH BUSBY is a 57 year old male apparently with no significant medical problem, but is a smoker and uses alcohol regularly. Patient reported having cough for about 1 to 2 weeks, nonproductive. He works in the [employer] and continue to had continued to work per his . Last night after he returned from work he had significant chills and had a rapid strep in the blanket. He could not eat due to loss of appetite. This morning he got worse with fever, chills, dizziness, malaise and syncope. Patient also reports dog bite left index finger and patient thinks he may also have begun to be sick after the bite. In the ED where he was found to be hypotensive systolic of 70s. He received 3 L bolus of Ringer's lactate with persistent hypotension. He has not been started on levo fed. Patient also has received Levaquin and vancomycin antibiotics. He reports allergies to penicillin with possible anaphylaxis, but ED physician called ID at [facility] and benefits of cefepime given the history of dog bite was thought to outweigh the risk, so patient also received cefepime." Past Medical History Cardiac Medical History: Reports: None Pulmonary Medical History: Reports: None Endocrine Medical History: Reports: None Renal/ Medical History: Reports: None Malignancy Medical History: Reports: None GI Medical History: Reports: Gastroesophageal Reflux Disease Musculoskeltal Medical History: Reports: None Skin Medical History: Reports: None Psychiatric Medical History: Reports: Depression Traumatic Medical History: Reports: None Infectious Medical History: Reports: None Past Surgical History Past Surgical History: Reports: Cholecystectomy Social History Information Source: [facility] Records Lives with: Spouse/Significant other Smoking Status: Current Every Day Smoker Cigarettes Packs Per Day: 3 Last Time Smoked: 10/11/17 Frequency of Alcohol Use: Heavy Drugs: None Hx Prescription Drug Abuse: No - Advance Directive Resuscitation Status: Full Code Family History Parental Family History Reviewed: No Children Family History Reviewed: No Sibling(s) Family History Reviewed.: No Medication/Allergy Home Medications: No Home Medications 10/11/17 Allergies/Adverse Reactions: Penicillins Allergy (Verified 10/11/17 15:29) Review of Systems ROS unobtainable: Due to endotracheal tube Physical Exam Vital Signs: Temp Pulse Resp BP Pulse Ox 98.8 F 70 14 89/63 L 95 10/15/17 10:02 10/15/17 10:00 10/15/17 10:02 10/15/17 10:02 10/15/17 10:02 Intake & Output 10/14/17 10/15/17 10/16/17 06:59 06:59 06:59 Intake Total 4622 2745 Output Total 5700 2865 210 Balance -1078 -120 -210 Weight 68.7 kg 72 kg General appearance: PRESENT: no acute distress, disheveled, well-developed. ABSENT: cooperative Head exam: PRESENT: atraumatic, normocephalic Eye exam: PRESENT: conjunctiva pale. ABSENT: nystagmus, periorbital swelling, scleral icterus Mouth exam: PRESENT: dry mucosa, neck supple, tongue midline, other - ET tube Neck exam: ABSENT: carotid bruit, JVD, lymphadenopathy, thyromegaly, tracheal deviation, tracheostomy Respiratory exam: PRESENT: crackles, prolonged expiratory phas, rhonchi, symmetrical, unlabored. ABSENT: decreased breath sounds, retraction, stridor Cardiovascular exam: PRESENT: RRR, +S2, tachycardia Pulses: PRESENT: normal radial pulses, other - no palpable DP or PT bilaterally GI/Abdominal exam: PRESENT: diminished bowel sounds, soft Gentrourinary exam: PRESENT: indwelling catheter Extremities exam: PRESENT: other - bilateral foot and distal extremities cool, mottled w/o papable pulse. ABSENT: clubbing Musculoskeletal exam: ABSENT: ambulatory, deformity, dislocation Neurological exam: ABSENT: alert, awake Skin exam: PRESENT: dry, warm Results Laboratory Results: 10/15/17 04:30 10/15/17 04:30 10/15/17 10/15/17 10/15/17 04:30 04:30 04:30 WBC 17.8 H RBC 3.57 L Hgb 12.2 L Hct 35.2 L MCV 99 H MCH 34.1 H MCHC 34.5 RDW 13.4 Plt Count 63 L Seg Neutrophils % Not Reportable Lymphocytes % Not Reportable Monocytes % Not Reportable Eosinophils % Not Reportable Basophils % Not Reportable Absolute Neutrophils Not Reportable Absolute Lymphocytes Not Reportable Absolute Monocytes Not Reportable Absolute Eosinophils Not Reportable Absolute Basophils Not Reportable Carbonic Acid 1.18 HCO3/H2CO3 Ratio 21:1 ABG pH 7.44 ABG pCO2 39.3 ABG pO2 77.4 L ABG HCO3 25.8 ABG O2 Saturation 95.8 ABG Base Excess 1.6 FiO2 50% Sodium 137.0 Potassium 3.6 Chloride 106 Carbon Dioxide 26 Anion Gap 5 BUN 14 Creatinine 0.76 Est GFR ( Amer) > 60 Est GFR (Non-Af Amer) > 60 Glucose 130 H Calcium 8.1 L Total Bilirubin 0.4 AST 105 H ALT 166 H Alkaline Phosphatase 59 Total Protein 4.6 L Albumin 2.5 L 10/13/17 02:50 Tracheal Aspirate Gram Stain - Final 10/13/17 02:50 Tracheal Aspirate Sputum Culture - Final Yeast, Not Shoshana Albicans Normal Agustina Absent Impressions: Abdomen/Pelvis CT 10/11/17 16:29 IMPRESSION: Tiny bilateral pleural effusions. Minimal basilar subsegmental atelectasis. Mild nonspecific pararenal fat stranding. No hydronephrosis or hydroureter. Hand X-Ray 10/11/17 16:43 IMPRESSION: Several punctate radiopaque foreign bodies appear present in the palmar soft tissue interspace between the 1st and 2nd digits. No fracture. Foot X-Ray 10/11/17 16:46 IMPRESSION: NEGATIVE STUDY OF THE LEFT FOOT. NO RADIOGRAPHIC EVIDENCE OF ACUTE INJURY. Head CT 10/11/17 17:05 IMPRESSION: No significant intracranial abnormalities were identified. Other findings as noted above. EVIDENCE OF ACUTE STROKE: NO. Chest X-Ray 10/15/17 09:30 IMPRESSION: Small pleural effusions. No pneumothorax. Assessment & Plan - Diagnosis (1) Acute respiratory failure Qualifiers: Respiratory failure complication: hypoxia Qualified Code(s): J96.01 - Acute respiratory failure with hypoxia Is this a current diagnosis for this admission?: Yes Plan: mechanical ventilation (2) Alcohol use Is this a current diagnosis for this admission?: Yes Plan: consider DT precautions (3) DIC syndrome Is this a current diagnosis for this admission?: Yes Plan: per Hematologymconsider surgical evaluation for feet and legs (4) Sepsis associated hypotension Is this a current diagnosis for this admission?: Yes Plan: 10/13/17 02:50 Gram Stain - Final Tracheal Aspirate Sputum Culture - Final Yeast, Not Shoshana Albicans Normal Agustina Absent 10/11/17 16:35 Blood Culture - Preliminary Blood Gram Negative Rods 10/11/17 14:44 Blood Culture - Preliminary Blood Gram Negative Rods - Time Total Critical Time (Minutes): 60
[2017-10-16] MEDS: METHYLPREDNISOLONE INJ 40 MG/1 ML SDV IV SCH ×3 (01:37→17:16)
[2017-10-16] MEDS: HYDROMORPHONE HCL INJ/PF 2 MG/ML AMPULE IV PRN ×5 (01:37→20:47)
[2017-10-16 06:31] LABS: INTERNATIONAL RATION (INR) 0.96; PROTHROMBIN TIME 13.5 SEC (11.4-15.4)
[2017-10-16 06:32] LABS: HEMATOCRIT 34.3 % (37.9-51.0); HEMOGLOBIN 11.7 g/dL (13.5-17.0); MEAN CORPUSCULAR HEMOGLOBIN 34.1 pg (27.0-33.4); MEAN CORPUSCULAR HGB CONC 34.2 g/dL (32.0-36.0); MEAN CORPUSCULAR VOLUME 100 fl (80-97); PARTIAL THROMBOPLASTIN TIME 33.3 SEC (23.5-35.8); PLATELET COUNT 114 10^3/uL (150-450); RED BLOOD COUNT 3.44 10^6/uL (4.35-5.55); RED CELL DISTRIBUTION WIDTH 13.9 % (11.5-14.0)
[2017-10-16 06:34] LABS: ARTERIAL BLOOD H2CO3 1.29 mmol/L (1.05-1.35); ARTERIAL BLOOD HCO3 26.9 mmol/L (20-26); ARTERIAL BLOOD O2 SATURATION 93.3 % (94-98); ARTERIAL BLOOD PCO2 42.8 mmHg (35-45); ARTERIAL BLOOD PH 7.42 (7.35-7.45); ARTERIAL BLOOD PO2 66.2 mmHg (80-100); ARTERIAL BLOOD TOTAL CO2 28.2 mmol/L (23-27)
[2017-10-16 06:38] LABS: ARTERIAL BLOOD FIO2 50%
[2017-10-16 06:50] LABS: ALANINE AMINOTRANSFERASE 116 U/L (21-72); ALBUMIN 2.5 g/dL (3.5-5.0); ALKALINE PHOSPHATASE 51 U/L (38-126); ANION GAP 6 (5-19); ASPARTATE AMINO TRANSFERASE 60 U/L (17-59); BILIRUBIN,DIRECT 0.1 mg/dL (0.0-0.4); BILIRUBIN,TOTAL 0.2 mg/dL (0.2-1.3); BLOOD UREA NITROGEN 20 mg/dL (7-20); CALCIUM 8.2 mg/dL (8.4-10.2); CARBON DIOXIDE 28 mmol/L (22-30); CHLORIDE 105 mmol/L (98-107); GLUCOSE 102 mg/dL (75-110); PHOSPHORUS 3.4 mg/dL (2.5-4.5); POTASSIUM 3.5 mmol/L (3.6-5.0); SODIUM 138.8 mmol/L (137-145); TOTAL PROTEIN 4.4 g/dL (6.3-8.2)
[2017-10-16] MEDS: CLINDAMYCIN 900 MG/D5W RTU 50 ML IV SCH ×3 (06:51→22:15)
[2017-10-16] MEDS: CEFEPIME HCL 2 GM in NORMAL SALINE 100 ML IV SCH ×2 (06:52→17:15)
[2017-10-16 06:58] LABS: PREALBUMIN 17.8 mg/dL (17.6-36.0)
[2017-10-16 07:50] LABS: ABSOLUTE LYMPHOCYTES# (MANUAL) 1.8 10^3/uL (0.5-4.7); ABSOLUTE MONOCYTES # (MANUAL) 1.6 10^3/uL (0.1-1.4); ABSOLUTE NEUTROPHILS# (MANUAL) 9.6 10^3/uL (1.7-8.2); BASOPHILS % (MANUAL) 0 % (0-2); EOSINOPHILS % (MANUAL) 0 % (0-6); LYMPHOCYTES % (MANUAL) 10 % (13-45); MONOCYTES % (MANUAL) 12 % (3-13); OVALOCYTES SLIGHT; PLATELET COMMENT DECREASED; POIKILOCYTOSIS SLIGHT; SEGMENTED NEUTROPHILS % (MAN) 74 % (42-78); TOTAL CELLS COUNTED 100
--- NOTE | 2017-10-16 07:52 | RADIOLOGY REPORT (SQ) ---
EXAM DESCRIPTION: CHEST SINGLE VIEW CLINICAL HISTORY: 57 years Male, resp failure COMPARISON: 10/15/17. NUMBER OF VIEWS/TECHNIQUE: 1/AP LIMITATIONS: None. FINDINGS: Moderate opacity-layered effusion of bilateral lower hemithoraces, no pneumothorax, normal cardiac silhouette, atherosclerosis, adequate appearing endotracheal tube, likely adequate enteric tube obscured distally, no acute bone defect. IMPRESSION: No significant change.
--- NOTE | 2017-10-16 08:01 | PDOC PROGRESS REPORT ---
Subjective Progress Note for:: 10/16/17 Subjective:: Patient remains sedated on vent, but nurses report that he is much more comfortable now with Dilaudid PRN. Ativan has been decreased. No new events overnight. Feet continue to remain cold and without pulses. Tube feedings were started and are being tolerated. Reason For Visit: SEPSIS Physical Exam Vital Signs: Temp Pulse Resp BP Pulse Ox 98.8 F 84 14 92/68 L 95 10/16/17 07:03 10/15/17 20:05 10/16/17 07:03 10/16/17 07:03 10/16/17 07:03 Intake & Output 10/15/17 10/16/17 10/17/17 06:59 06:59 06:59 Intake Total 2745 2662 Output Total 2865 1970 Balance -120 692 Weight 72 kg 72.7 kg General appearance: PRESENT: no acute distress, thin Respiratory exam: PRESENT: clear to auscultation nuvia, unlabored Cardiovascular exam: PRESENT: RRR. ABSENT: clicks, systolic murmur Pulses: ABSENT: normal dorsalis pedis pul GI/Abdominal exam: PRESENT: normal bowel sounds, soft Skin exam: PRESENT: cyanosis, other - And mottling over both feet to the ankles. Excoriation and petechei remain over nose. No significant change. Appears to have good blood flow in all other areas, except feet. Results Laboratory Results: 10/16/17 06:00 10/16/17 06:00 10/16/17 10/16/17 10/16/17 06:00 06:00 06:00 WBC 13.0 H RBC 3.44 L Hgb 11.7 L Hct 34.3 L MCV 100 H MCH 34.1 H MCHC 34.2 RDW 13.9 Plt Count 114 L Seg Neutrophils % Not Reportable Lymphocytes % Not Reportable Monocytes % Not Reportable Eosinophils % Not Reportable Basophils % Not Reportable Absolute Neutrophils Not Reportable Absolute Lymphocytes Not Reportable Absolute Monocytes Not Reportable Absolute Eosinophils Not Reportable Absolute Basophils Not Reportable Carbonic Acid 1.29 HCO3/H2CO3 Ratio 20:1 ABG pH 7.42 ABG pCO2 42.8 ABG pO2 66.2 L ABG HCO3 26.9 H ABG O2 Saturation 93.3 L ABG Base Excess 2.0 FiO2 50% Sodium 138.8 Potassium 3.5 L Chloride 105 Carbon Dioxide 28 Anion Gap 6 BUN 20 Creatinine 0.78 Est GFR ( Amer) > 60 Est GFR (Non-Af Amer) > 60 Glucose 102 Calcium 8.2 L Phosphorus 3.4 Magnesium 2.3 Total Bilirubin 0.2 AST 60 H ALT 116 H Alkaline Phosphatase 51 Total Protein 4.4 L Albumin 2.5 L Prealbumin 17.8 10/16/17 06:00 NT-Pro-B Natriuret Pep 2220 H Impressions: Abdomen/Pelvis CT 10/11/17 16:29 IMPRESSION: Tiny bilateral pleural effusions. Minimal basilar subsegmental atelectasis. Mild nonspecific pararenal fat stranding. No hydronephrosis or hydroureter. Hand X-Ray 10/11/17 16:43 IMPRESSION: Several punctate radiopaque foreign bodies appear present in the palmar soft tissue interspace between the 1st and 2nd digits. No fracture. Foot X-Ray 10/11/17 16:46 IMPRESSION: NEGATIVE STUDY OF THE LEFT FOOT. NO RADIOGRAPHIC EVIDENCE OF ACUTE INJURY. Head CT 10/11/17 17:05 IMPRESSION: No significant intracranial abnormalities were identified. Other findings as noted above. EVIDENCE OF ACUTE STROKE: NO. Chest X-Ray 10/16/17 06:00 IMPRESSION: No significant change. Assessment & Plan - Diagnosis (1) DIC syndrome Is this a current diagnosis for this admission?: Yes Plan: Platelets have improved greatly. No coagulation defects seen at this time. His labs continue to improve. Nothing else to add currently. Agree with weaning vent. No evidence of active bleeding.
[2017-10-16] MEDS: IPRATROPIUM/ALBUTEROL 0.5-2.5 MG/3 ML AMPUL NEB SCH ×4 (08:41→19:46)
[2017-10-16] MEDS: LORAZEPAM 24 MG/240 ML BAG IV PRN ×3 (09:01→20:05)
[2017-10-16] MEDS: FLUCONAZOLE 200 MG/NS RTU 100 ML IV SCH (11:34)
[2017-10-16] MEDS: NORMAL SALINE 1000 ML 1,000 ML IV PRN ×2 (11:35→17:19)
[2017-10-16] MEDS: NICOTINE 21 MG/24 HR PATCH.TD24 TD SCH (11:35)
--- NOTE | 2017-10-16 14:08 | PDOC PROGRESS REPORT ---
Subjective Progress Note for:: 10/16/17 Subjective:: Patient remains intubated and sedated. He awakens when sedation is turned down. Pain in his feet better with Dilaudid. Also he is being managed for alcohol withdrawal. Platelets continue to improve and is much better today. He never received a platelet transfusion. Reason For Visit: SEPSIS Physical Exam Vital Signs: Temp Pulse Resp BP Pulse Ox 98.1 F 69 15 96/71 L 99 10/16/17 08:00 10/16/17 11:25 10/16/17 11:25 10/16/17 08:00 10/16/17 11:25 Intake & Output 10/15/17 10/16/17 10/17/17 06:59 06:59 06:59 Intake Total 2745 2662 Output Total 2865 1970 640 Balance -120 692 -640 Weight 72 kg 72.7 kg GENERAL: Intubated, in no apparent distress CARDIOVASCULAR: RRR, normal S1-S2 LUNGS: clear to auscultation ABDOMEN: Soft, NT, NL bowel sounds EXTREMITIES: Left index finger with bite wounds, no pus/discharge. Dorsalis pedis barely palpable. Feet remains cool. NEUROLOGICAL: Sedated Results Laboratory Results: 10/16/17 06:00 10/16/17 06:00 10/16/17 10/16/17 10/16/17 06:00 06:00 06:00 WBC 13.0 H RBC 3.44 L Hgb 11.7 L Hct 34.3 L MCV 100 H MCH 34.1 H MCHC 34.2 RDW 13.9 Plt Count 114 L Seg Neutrophils % Not Reportable Lymphocytes % Not Reportable Monocytes % Not Reportable Eosinophils % Not Reportable Basophils % Not Reportable Absolute Neutrophils Not Reportable Absolute Lymphocytes Not Reportable Absolute Monocytes Not Reportable Absolute Eosinophils Not Reportable Absolute Basophils Not Reportable Carbonic Acid 1.29 HCO3/H2CO3 Ratio 20:1 ABG pH 7.42 ABG pCO2 42.8 ABG pO2 66.2 L ABG HCO3 26.9 H ABG O2 Saturation 93.3 L ABG Base Excess 2.0 FiO2 50% Sodium 138.8 Potassium 3.5 L Chloride 105 Carbon Dioxide 28 Anion Gap 6 BUN 20 Creatinine 0.78 Est GFR ( Amer) > 60 Est GFR (Non-Af Amer) > 60 Glucose 102 Calcium 8.2 L Phosphorus 3.4 Magnesium 2.3 Total Bilirubin 0.2 AST 60 H ALT 116 H Alkaline Phosphatase 51 Total Protein 4.4 L Albumin 2.5 L Prealbumin 17.8 10/16/17 06:00 NT-Pro-B Natriuret Pep 2220 H Impressions: Abdomen/Pelvis CT 10/11/17 16:29 IMPRESSION: Tiny bilateral pleural effusions. Minimal basilar subsegmental atelectasis. Mild nonspecific pararenal fat stranding. No hydronephrosis or hydroureter. Hand X-Ray 10/11/17 16:43 IMPRESSION: Several punctate radiopaque foreign bodies appear present in the palmar soft tissue interspace between the 1st and 2nd digits. No fracture. Foot X-Ray 10/11/17 16:46 IMPRESSION: NEGATIVE STUDY OF THE LEFT FOOT. NO RADIOGRAPHIC EVIDENCE OF ACUTE INJURY. Head CT 10/11/17 17:05 IMPRESSION: No significant intracranial abnormalities were identified. Other findings as noted above. EVIDENCE OF ACUTE STROKE: NO. Chest X-Ray 10/16/17 06:00 IMPRESSION: No significant change. Assessment & Plan - Diagnosis (1) Sepsis Is this a current diagnosis for this admission?: Yes Plan: Continued slow improvement, improving platelets. Low grade fever may be secondary to vascular issues vs persistent infection. Blood cultures growing gram neg rods, sputum GNR and yeast Called microbiology and they are is still working on identifying the bug and sensitivity -- reports it's very slow growing. Will adjust antibiotics pending results. We will repeat blood cultures in a.m. Source of infection unclear. Patient may have pneumonia. He also has h/o dog bit to right index finger, but probably not source of infection per my speaking with Dr. Quesada of [facility] who told me he saw the patient and would leave a note. Patient was initially treated with cefepime, Vanco, Clinda, Levaquin. Antibiotics have since been adjusted to adding fluconazole and continue cefepime and Clinda, while discontinuing Vanco and Levaquin. --Continue fluconazole IV, continue Cefepime, Clinda for now. Echocardiogram ordered and pending. Consider DYLAN if this is unrevealing for possible source of infection. (2) Acute respiratory failure Qualifiers: Respiratory failure complication: hypoxia Qualified Code(s): J96.01 - Acute respiratory failure with hypoxia Is this a current diagnosis for this admission?: Yes Plan: Currently on vent. Weaning and extubation as tolerated. Dr. Pollock of pulmonology was consulted--his evaluation appreciated. Patient now has NG tube and started feeding pending weaning from vent and extubation. We will continue Solu-Medrol -- will decrease from 40 mg q. 8 to bid -- patience had wheezing and is a long time smoker so he could very well have COPD. (3) Sepsis associated hypotension Is this a current diagnosis for this admission?: Yes Plan: Hypotension remains improved. Patient has since been off vesopressors. Fluids initially on hold after patient had pulmonary edema following initial aggressive hydration. Now running at 50 mL/h blood pressure has remained improved. Will continue to follow daily chest x-ray while patient on vent. (4) DIC syndrome Is this a current diagnosis for this admission?: Yes Plan: Suspect DIC, given thrombocytopenia, coagulopathy. His numbers appear to continue to improve, platelets markedly improved from a low of 32 to 114 today without having received any transfusion. Dr. Werner's of heme/onc follow-up appreciated. We will continue to monitor CBC and platelets, follow coags, continue antibiotics and supportive care. Pt started on low dose heparin due to concern for ischemic distal limbs. Lower extremity ultrasound revealed "unusual pattern of normal vessels with very distal thrombosis, quite likely due to low flow state." Discussed with Dr. Salgado of surgery, who stated there really appears to be nothing surgical that can do done at this time but to ensure adequate BP to enhance flow. Pt also being treated with low dose anticoagulation will heparing 5 units/kg per hr. (5) Dog bite Is this a current diagnosis for this admission?: Yes Plan: Left index finger. DOUBT that this is the cause of his infection/sepsis. Continue antibiotic regimen to however include cefepime per [facility]'s ID recommendation.. Again, of note I spoke with the Dr. Quesada of orthopedics 10/13/17 who reported evaluating the patient and did not think I&D was needed --he had promised to leave a note. (6) Alcohol use Is this a current diagnosis for this admission?: Yes Plan: Continue to monitor for DTs. Benzodiazepine IV for DT prophylaxis and for restlessness. (7) Abnormal LFTs Plan: Suspect shock liver. Improving. Continue to monitor. (8) Hyponatremia Is this a current diagnosis for this admission?: Yes Plan: Continue to monitor. (9) Pneumonia Qualifiers: Pneumonia type: due to unspecified organism Is this a current diagnosis for this admission?: Yes Plan: Suspected pneumonia, possibly community-acquired. Will continue to follow follow culture sensitivity. Also with possible yeast, since found in lungs. Again, Abx as in sepsis. (10) Tobacco dependence Is this a current diagnosis for this admission?: Yes Plan: Nicotine patch. Deferred smoking cessation counseling at this time as patient critically ill. - Time Total Critical Time (Minutes): 40
--- NOTE | 2017-10-16 19:29 | XCELERA REPORT ---
[address] [address] Transthoracic Echocardiogram Report Name: JOSEPH BUSBY Age: 57 yrs Gender: Male : 1960 Patient Status: Inpatient Patient Location: ICU^[facility]^A Study Date: 10/16/2017 09:56 AM Height: 70 in Weight: 151 lb BSA: 1.9 m2 Procedure: A complete two-dimensional transthoracic echocardiogram was performed (2D, M-mode, spectral and color flow Doppler). The study was technically adequate with some images being suboptimal in quality. Reason For Study: sepsis, bacteremia, DIC Ordering Physician: LISSETTE BANERJEE Performed By: Carol Munguia Interpretation Summary The left ventricular ejection fraction is normal. There is borderline concentric left ventricular hypertrophy. The left ventricle is grossly normal size. probably wnl Wall motion cannot be accurately commented on, but no definite regional wall motion abnormalities noted. The right ventricular systolic function is normal. The left atrial size is normal. The right atrium is normal. There is a mild amount of mitral regurgitation There is no mitral valve stenosis. No aortic regurgitation is present. There is no aortic valve stenosis There is a trace to mild amount of tricuspid regurgitation There is mild pulmonary hypertension by echo Right ventricular systolic pressure is estimated to be elevated at 30- 40mmHg. The aortic root is not well visualized but is probably normal size. The inferior vena cava appeared normal and decreased < 50% with respiration (RAP 10-15 mmHg) There is no pericardial effusion. MMode/2D Measurements & Calculations RVDd: 3.2 cm LVIDd: 5.3 cmFS: 38.1 % Ao root diam: 3.6 cm IVSd: 1.00 cm LVIDs: 3.3 cmEDV(Teich): 132.8 ml LVPWd: 1.0 cmESV(Teich): 42.7 ml Ao root area: 9.9 cm2 EF(Teich): 67.9 % LA dimension: 3.4 cm LVOT diam: 2.0 cm LVOT area: 3.1 cm2 Doppler Measurements & Calculations MV E max thuy: MV P1/2t max thuy: Ao V2 max: LV V1 max P.2 cm/sec 59.8 cm/sec 127.9 cm/sec 5.4 mmHg MV A max thuy: MV P1/2t: 56.2 msec Ao max PG: LV V1 max: 40.0 cm/sec MVA(P1/2t): 3.9 cm2 6.5 mmHg 116.1 cm/sec MV E/A: 1.5 MV dec slope: MARYJO(V,D): 2.8 cm2 311.5 cm/sec2 PA V2 max: TR max thuy: 54.5 cm/sec 242.2 cm/sec PA max PG: TR max P.5 mmHg 1.2 mmHg Left Ventricle The left ventricle is grossly normal size. There is borderline concentric left ventricular hypertrophy. The left ventricular ejection fraction is normal. probably wnl. Wall motion cannot be accurately commented on, but no definite regional wall motion abnormalities noted. Right Ventricle The right ventricle is grossly normal size. There is normal right ventricular wall thickness. The right ventricular systolic function is normal. Atria The right atrium is normal. The left atrial size is normal. Interarterial septum not well visualized and not well dopplered. Cannot comment on ASD/PFO presence. Mitral Valve The mitral valve leaflets are sclerotic, but show no functional abnormalities. There is no mitral valve stenosis. There is a mild amount of mitral regurgitation. Aortic Valve The aortic valve is grossly normal. There is no aortic valve stenosis. No aortic regurgitation is present. Tricuspid Valve The tricuspid valve is not well visualized, but is grossly normal. There is no tricuspid stenosis. There is a trace to mild amount of tricuspid regurgitation. There is mild pulmonary hypertension by echo. Right ventricular systolic pressure is estimated to be elevated at 30-40mmHg. Pulmonic Valve The pulmonic valve is not well visualized. Great Vessels The aortic root is not well visualized but is probably normal size. The inferior vena cava appeared normal and decreased < 50% with respiration (RAP 10-15 mmHg). Effusions There is no pericardial effusion. : LISSETTE BANERJEE > Amna Burton
[2017-10-16] MEDS: FAMOTIDINE INJ/PF 20 MG/2 ML SDV IV SCH (22:14)
[2017-10-17] MEDS: HYDROMORPHONE HCL INJ/PF 2 MG/ML AMPULE IV PRN ×5 (01:42→22:06)
[2017-10-17] MEDS: METHYLPREDNISOLONE INJ 40 MG/1 ML SDV IV SCH ×3 (01:42→18:26)
[2017-10-17] MEDS: LORAZEPAM 24 MG/240 ML BAG IV PRN ×4 (03:29→21:11)
[2017-10-17] MEDS: CEFEPIME HCL 2 GM in NORMAL SALINE 100 ML IV SCH ×2 (06:05→18:25)
[2017-10-17] MEDS: CLINDAMYCIN 900 MG/D5W RTU 50 ML IV SCH ×3 (06:05→21:10)
[2017-10-17 06:22] LABS: ARTERIAL BLOOD BASE EXCESS 2.9 mmol/L; ARTERIAL BLOOD H2CO3 1.12 mmol/L (1.05-1.35); ARTERIAL BLOOD HCO3 26.5 mmol/L (20-26); ARTERIAL BLOOD O2 SATURATION 95.6 % (94-98); ARTERIAL BLOOD PCO2 37.1 mmHg (35-45); ARTERIAL BLOOD PH 7.47 (7.35-7.45); ARTERIAL BLOOD PO2 73.3 mmHg (80-100); ARTERIAL BLOOD TOTAL CO2 27.7 mmol/L (23-27)
[2017-10-17 06:24] LABS: HEMATOCRIT 35.6 % (37.9-51.0); MEAN CORPUSCULAR HEMOGLOBIN 33.8 pg (27.0-33.4); MEAN CORPUSCULAR HGB CONC 33.8 g/dL (32.0-36.0); MEAN CORPUSCULAR VOLUME 100 fl (80-97); PLATELET COUNT 169 10^3/uL (150-450); RED BLOOD COUNT 3.56 10^6/uL (4.35-5.55); RED CELL DISTRIBUTION WIDTH 13.9 % (11.5-14.0); WHITE BLOOD COUNT 15.9 10^3/uL (4.0-10.5)
[2017-10-17 06:26] LABS: ARTERIAL BLOOD FIO2 40%
[2017-10-17 06:50] LABS: ALANINE AMINOTRANSFERASE 102 U/L (21-72); ALBUMIN 2.6 g/dL (3.5-5.0); ALKALINE PHOSPHATASE 58 U/L (38-126); ANION GAP 6 (5-19); ASPARTATE AMINO TRANSFERASE 46 U/L (17-59); BILIRUBIN,DIRECT 0.1 mg/dL (0.0-0.4); BILIRUBIN,TOTAL 0.4 mg/dL (0.2-1.3); BLOOD UREA NITROGEN 26 mg/dL (7-20); CALCIUM 8.2 mg/dL (8.4-10.2); CARBON DIOXIDE 27 mmol/L (22-30); CHLORIDE 106 mmol/L (98-107); GLUCOSE 126 mg/dL (75-110); POTASSIUM 4.2 mmol/L (3.6-5.0); SODIUM 139.2 mmol/L (137-145); TOTAL PROTEIN 4.5 g/dL (6.3-8.2)
[2017-10-17 07:03] LABS: ABSOLUTE LYMPHOCYTES# (MANUAL) 0.8 10^3/uL (0.5-4.7); ABSOLUTE MONOCYTES # (MANUAL) 1.6 10^3/uL (0.1-1.4); ABSOLUTE NEUTROPHILS# (MANUAL) 13.5 10^3/uL (1.7-8.2); BASOPHILS % (MANUAL) 0 % (0-2); EOSINOPHILS % (MANUAL) 0 % (0-6); LYMPHOCYTES % (MANUAL) 5 % (13-45); MONOCYTES % (MANUAL) 10 % (3-13); SEGMENTED NEUTROPHILS % (MAN) 85 % (42-78); TOTAL CELLS COUNTED 100
[2017-10-17 07:07] LABS: ANISOCYTOSIS SLIGHT; HOWELL-JOLLY BODIES PRESENT; PLATELET COMMENT ADEQUATE; PLATELET LARGE PRESENT; POLYCHROMASIA SLIGHT
--- NOTE | 2017-10-17 07:16 | RADIOLOGY REPORT (SQ) ---
EXAM DESCRIPTION: CHEST SINGLE VIEW CLINICAL HISTORY: pna COMPARISON: 10/16/2017 FINDINGS: Single frontal view of the chest. Endotracheal tube with tip just below the clavicles. NG tube with tip below the diaphragm. Cardiac silhouette is stable. Leads overlie the chest. Small bilateral pleural effusions with improved aeration from the previous study. No pneumothorax. No acute osseous abnormalities. Upper abdominal soft tissues are unremarkable. IMPRESSION: 1. Improved aeration the lung bases bilaterally with likely small bilateral pleural effusions.
--- NOTE | 2017-10-17 08:39 | PDOC PROGRESS REPORT ---
Subjective Progress Note for:: 10/17/17 Subjective:: Patient remains stable on vent. Nurses report no new issues. He remains on a low-dose heparin drip. Reason For Visit: SEPSIS Physical Exam Vital Signs: Temp Pulse Resp BP Pulse Ox 97.6 F 73 22 H 117/81 97 10/17/17 08:00 10/16/17 20:00 10/17/17 06:04 10/17/17 06:04 10/17/17 06:04 Intake & Output 10/16/17 10/17/17 10/18/17 06:59 06:59 06:59 Intake Total 2662 3337 Output Total 1970 2515 150 Balance 692 822 -150 Weight 72.7 kg 70.6 kg General appearance: PRESENT: no acute distress Respiratory exam: PRESENT: unlabored Skin exam: PRESENT: other - Continued mottling of the lower extremities. No change elsewhere. Results Laboratory Results: 10/17/17 06:13 10/17/17 06:13 10/17/17 10/17/17 10/17/17 06:13 06:13 06:13 WBC 15.9 H RBC 3.56 L Hgb 12.0 L Hct 35.6 L MCV 100 H MCH 33.8 H MCHC 33.8 RDW 13.9 Plt Count 169 Seg Neutrophils % Not Reportable Lymphocytes % Not Reportable Monocytes % Not Reportable Eosinophils % Not Reportable Basophils % Not Reportable Absolute Neutrophils Not Reportable Absolute Lymphocytes Not Reportable Absolute Monocytes Not Reportable Absolute Eosinophils Not Reportable Absolute Basophils Not Reportable Carbonic Acid 1.12 HCO3/H2CO3 Ratio 23:1 ABG pH 7.47 H ABG pCO2 37.1 ABG pO2 73.3 L ABG HCO3 26.5 H ABG O2 Saturation 95.6 ABG Base Excess 2.9 FiO2 40% Sodium 139.2 Potassium 4.2 Chloride 106 Carbon Dioxide 27 Anion Gap 6 BUN 26 H Creatinine 0.70 Est GFR ( Amer) > 60 Est GFR (Non-Af Amer) > 60 Glucose 126 H Calcium 8.2 L Magnesium 2.2 Total Bilirubin 0.4 AST 46 ALT 102 H Alkaline Phosphatase 58 Total Protein 4.5 L Albumin 2.6 L 10/16/17 06:00 NT-Pro-B Natriuret Pep 2220 H Impressions: Abdomen/Pelvis CT 02/14/18 16:29 IMPRESSION: Tiny bilateral pleural effusions. Minimal basilar subsegmental atelectasis. Mild nonspecific pararenal fat stranding. No hydronephrosis or hydroureter. Hand X-Ray 10/11/17 16:43 IMPRESSION: Several punctate radiopaque foreign bodies appear present in the palmar soft tissue interspace between the 1st and 2nd digits. No fracture. Foot X-Ray 10/11/17 16:46 IMPRESSION: NEGATIVE STUDY OF THE LEFT FOOT. NO RADIOGRAPHIC EVIDENCE OF ACUTE INJURY. Head CT 10/11/17 17:05 IMPRESSION: No significant intracranial abnormalities were identified. Other findings as noted above. EVIDENCE OF ACUTE STROKE: NO. Chest X-Ray 10/17/17 06:00 IMPRESSION: 1. Improved aeration the lung bases bilaterally with likely small bilateral pleural effusions. Assessment & Plan - Diagnosis (1) DIC syndrome Is this a current diagnosis for this admission?: Yes Plan: I would stop the heparin drip at this time and change to Lovenox 40 mg SC daily. Continue to monitor Cr and coags.
[2017-10-17] MEDS: IPRATROPIUM/ALBUTEROL 0.5-2.5 MG/3 ML AMPUL NEB SCH ×4 (08:48→20:14)
[2017-10-17] MEDS: FAMOTIDINE INJ/PF 20 MG/2 ML SDV IV SCH ×2 (09:02→21:10)
[2017-10-17] MEDS: FLUCONAZOLE 200 MG/NS RTU 100 ML IV SCH (09:02)
[2017-10-17] MEDS: NICOTINE 21 MG/24 HR PATCH.TD24 TD SCH (09:02)
[2017-10-17] MEDS: NORMAL SALINE 1000 ML 1,000 ML IV PRN (09:03)
--- NOTE | 2017-10-17 10:11 | PDOC PROGRESS REPORT ---
Subjective Progress Note for:: 10/17/17 Subjective:: 57-year-old male with no significant medical problems presented to the emergency department with a 1-2 week history of a nonproductive cough associated with fevers, chills, and malaise. He is a smoker and uses alcohol regularly. The night before admission, he had significant chills. His appetite was poor. He reported a dog bite on his left index finger prior to his symptoms. Apparently his symptoms progressed to the point that EMS was called. In the ED, he was hypotensive, tachycardic, and febrile. Initially, there was no obvious source. He was started on IV fluids as well as empiric antibiotics for suspected sepsis. He also required IV Levophed. In the ED, he also complained of lower extremity pain. According to the ED physician, his skin of his lower legs had a mottled appearance. He had reduce pedal pulses bilaterally at that point according to the ED physician. He was admitted to the ICU. On admission he was hyponatremic with a sodium of 129. His creatinine was 2.42. He also had elevated AST and ALT of 895 and 400 respectively. His lactic acid was 4.6 his white blood cell count was 6.6. Hemoglobin was 15.5. Platelet was 61,000. Head CT showed no significant intracranial abnormalities. X-rays of the left foot show no evidence of acute injury. X-ray of the left hand shows several punctate radiopaque foreign bodies present in the palmar soft tissue interspace between the first and second digits. No fractures noted. Chest x-ray showed no acute radiographic findings. CT of the abdomen/ pelvis showed tiny bilateral pleural effusions. There was minimal basilar subsegmental atelectasis. Mild nonspecific perarenal fat stranding is noted. No hydronephrosis or hydroureter was seen. Oct 12, 2017 He had periods of agitation and restlessness. He was not following commands. Hypotension improved. Levophed was discontinued. He was continued on antibiotics. Lorazepam was started for DVT prophylaxis. Sodium increased to 133. Liver enzymes decreased. White count increased to 11.6. Hemoglobin dropped from 15.5-10.1. Platelet count decreased 34,000. Pedal pulses were palpable. No cyanosis was noted. October 13, 2017 His respiratory status deteriorated overnight requiring intubation. Chest x- ray demonstrated interval worsening: Moderate pulmonary edema; differential includes multifocal pneumonia. His pedal pulses were noted to be decreased. His feet were cool with some mottling. Oct 14 He remains intubated. Oncology consult was obtained for possible DIC. The count remained low at 35,000. However, he received a platelet transfusion prior to this. His creatinine and liver enzymes also improved. Chest x-ray showed interval worsening including small left basilar opacity. He was started on low-dose heparin. Lower extremity venous Doppler showed no evidence of DVT. Lower extremity arterial studies suggested occluded distal posterior and anterior tibial arteries. Completely normal velocity and triphasic waveforms noted from the common femoral artery to the infrageniculate vessels. Occlusion in the distal infrageniculate arteries. CHON was not done. On the left side, there was an occluded dorsalis pedis artery. ABIs were not done. Oct 15 Blood culture starting to grow gram-negative rods, and yeast in the sputum. Vancomycin was discontinued. Levaquin was also stopped. IV fluconazole was started. He was continued on cefepime and clindamycin. He remained on IV heparin for concern for ischemic limits. Some recent chest x-ray suggested pneumonia. Orthopedics was informally consulted, and did not think that his left hand needed to be I&D'd. His sodium started to normalize. Oct 16 He remains intubated. He awakens when sedation is turned down. Platelets started to improve. Echocardiogram was ordered. Blood culture still pending. He remains on Solu-Medrol given his history of long-term smoking. Plus, he was noted to be wheezing on exam. Discussed with Dr. Salgado of surgery, who stated there really appears to be nothing surgical that can do done at this time but to ensure adequate BP to enhance flow. Pt also being treated with low dose anticoagulation will heparin 5 units/kg per hr. Oct 17 Remains intubated. No problems overnight. He awakens when the sedation is turned off. He responds to pain. Reason For Visit: SEPSIS Physical Exam Vital Signs: Temp Pulse Resp BP Pulse Ox 97.6 F 63 14 117/81 94 10/17/17 08:00 10/17/17 08:50 10/17/17 08:50 10/17/17 06:04 10/17/17 08:50 Intake & Output 10/16/17 10/17/17 10/18/17 06:59 06:59 06:59 Intake Total 2662 3337 Output Total 6097 1675 150 Balance 692 822 -150 Weight 72.7 kg 70.6 kg General appearance: PRESENT: no acute distress, well-developed, well-nourished Head exam: PRESENT: atraumatic, normocephalic Respiratory exam: PRESENT: clear to auscultation nuvia, symmetrical, unlabored Cardiovascular exam: PRESENT: RRR. ABSENT: diastolic murmur, rubs, systolic murmur Pulses: ABSENT: normal dorsalis pedis pul Vascular exam: PRESENT: pallor. ABSENT: normal capillary refill Extremities exam: PRESENT: other - Right fourth and fifth toes are black. Left fifth, fourth, and third toes are black. Both feet are cool and cyanotic with mottled discoloration in both shins/cast bilaterally. Unable to find pulse by Doppler. Neurological exam: PRESENT: other - Sedated Results Laboratory Results: 10/17/17 06:13 10/17/17 06:13 10/17/17 10/17/17 10/17/17 06:13 06:13 06:13 WBC 15.9 H RBC 3.56 L Hgb 12.0 L Hct 35.6 L MCV 100 H MCH 33.8 H MCHC 33.8 RDW 13.9 Plt Count 169 Seg Neutrophils % Not Reportable Lymphocytes % Not Reportable Monocytes % Not Reportable Eosinophils % Not Reportable Basophils % Not Reportable Absolute Neutrophils Not Reportable Absolute Lymphocytes Not Reportable Absolute Monocytes Not Reportable Absolute Eosinophils Not Reportable Absolute Basophils Not Reportable Carbonic Acid 1.12 HCO3/H2CO3 Ratio 23:1 ABG pH 7.47 H ABG pCO2 37.1 ABG pO2 73.3 L ABG HCO3 26.5 H ABG O2 Saturation 95.6 ABG Base Excess 2.9 FiO2 40% Sodium 139.2 Potassium 4.2 Chloride 106 Carbon Dioxide 27 Anion Gap 6 BUN 26 H Creatinine 0.70 Est GFR ( Amer) > 60 Est GFR (Non-Af Amer) > 60 Glucose 126 H Calcium 8.2 L Magnesium 2.2 Total Bilirubin 0.4 AST 46 ALT 102 H Alkaline Phosphatase 58 Total Protein 4.5 L Albumin 2.6 L 10/16/17 06:00 NT-Pro-B Natriuret Pep 2220 H Impressions: Abdomen/Pelvis CT 10/11/17 16:29 IMPRESSION: Tiny bilateral pleural effusions. Minimal basilar subsegmental atelectasis. Mild nonspecific pararenal fat stranding. No hydronephrosis or hydroureter. Hand X-Ray 10/11/17 16:43 IMPRESSION: Several punctate radiopaque foreign bodies appear present in the palmar soft tissue interspace between the 1st and 2nd digits. No fracture. Foot X-Ray 10/11/17 16:46 IMPRESSION: NEGATIVE STUDY OF THE LEFT FOOT. NO RADIOGRAPHIC EVIDENCE OF ACUTE INJURY. Head CT 10/11/17 17:05 IMPRESSION: No significant intracranial abnormalities were identified. Other findings as noted above. EVIDENCE OF ACUTE STROKE: NO. Chest X-Ray 10/17/17 06:00 IMPRESSION: 1. Improved aeration the lung bases bilaterally with likely small bilateral pleural effusions. Assessment & Plan - Diagnosis (1) Abnormal LFTs Is this a current diagnosis for this admission?: Yes Plan: Improved dramatically. Almost back to baseline, except for ALT of 102 (2) Acute respiratory failure Qualifiers: Respiratory failure complication: hypoxia Qualified Code(s): J96.01 - Acute respiratory failure with hypoxia Is this a current diagnosis for this admission?: Yes Plan: Continue ventilator support. Appreciate Dr Pollock help. (3) Alcohol use Is this a current diagnosis for this admission?: Yes Plan: lorazepam drip for sedation. (4) Critical ischemia of foot Is this a current diagnosis for this admission?: Yes Plan: Surgical consultation. Discussed with who will place the consult. (5) DIC syndrome Is this a current diagnosis for this admission?: Yes Plan: Improved. Oncology recommends enoxaparin 40 mg subcu, instead of IV heparin at this time. I will allow the surgeon to see him first before making a change. (6) Dog bite Qualifiers: Encounter type: subsequent encounter Qualified Code(s): W54.0XXD - Bitten by dog, subsequent encounter Is this a current diagnosis for this admission?: Yes Plan: Not considered significant. He is on antibiotics. However the dog bite would not lead to a gram-negative eden bacteremia. (7) Hyponatremia Is this a current diagnosis for this admission?: Yes Plan: Resolved. (8) Pneumonia Qualifiers: Pneumonia type: due to unspecified organism Is this a current diagnosis for this admission?: Yes Plan: Continue antibiotics. (9) Sepsis Qualifiers: Sepsis type: sepsis due to unspecified organism Qualified Code(s): A41.9 - Sepsis, unspecified organism Is this a current diagnosis for this admission?: Yes Plan: Gram-negative rods in blood from 10/11/2017. ID and sensitivities pending. (10) Tobacco dependence Is this a current diagnosis for this admission?: Yes Plan: Nicotine patch
--- NOTE | 2017-10-17 18:23 | PDOC CONSULTATION ---
Consultation Consult Date: 10/17/17 Attending physician:: CB SHAFER Consult reason:: Lower extremity ischemia. History of Present Illness Admission Date/PCP: 10/11/17 18:42 Patient complains of: Admitted in respiratory failure. Had or developed lower extremity mottling and pain. History of Present Illness: The patient was admitted with respiratory failure and difficulties with the lower extremities. He has been in the ICU on the ventilator. He has been treated with Levophed and vasopressors. Past Medical History Cardiac Medical History: Reports: None Pulmonary Medical History: Reports: None Endocrine Medical History: Reports: None Renal/ Medical History: Reports: None Malignancy Medical History: Reports: None GI Medical History: Reports: Gastroesophageal Reflux Disease Musculoskeltal Medical History: Reports: None Skin Medical History: Reports: None Psychiatric Medical History: Reports: Depression Traumatic Medical History: Reports: None Infectious Medical History: Reports: None Past Surgical History Past Surgical History: Reports: Cholecystectomy Social History Lives with: Spouse/Significant other Smoking Status: Current Every Day Smoker Cigarettes Packs Per Day: 3 Last Time Smoked: 10/11/17 Frequency of Alcohol Use: Heavy Drugs: None Hx Prescription Drug Abuse: No - Advance Directive Resuscitation Status: Full Code Family History Family History: None Parental Family History Reviewed: No Children Family History Reviewed: No Sibling(s) Family History Reviewed.: No Medication/Allergy Home Medications: No Home Medications 10/11/17 Allergies/Adverse Reactions: Penicillins Allergy (Verified 10/11/17 15:29) Physical Exam Vital Signs: Temp Pulse Resp BP Pulse Ox 37.2 F L 63 14 100/70 93 10/17/17 16:00 10/17/17 16:51 10/17/17 16:51 10/17/17 14:03 10/17/17 16:51 Intake & Output 10/16/17 10/17/17 10/18/17 06:59 06:59 06:59 Intake Total 6572 3337 Output Total 1344 4310 750 Balance 692 822 -750 Weight 72.7 kg 70.6 kg Additional comments: Constitutional: Well-developed well-nourished gentleman. On the ventilator, sedated. Occasional spontaneous arousal noted. Eyes: Mucous membranes pink and moist, pupils equal and reactive to light. Conjunctiva normal. Cornea normal. ENT: External pinna normal to inspection. Teeth intact. Intubated. Cardiac: Heart sounds 1 and 2 normal. Respiratory breath sounds are present bilaterally, normal. Assisted respiration. Psychiatric: Judgment, memory, insight is impossible to assess currently. Extremities: Upper extremities show normal range of movement. Restrained. Pulses present noted to the radial arteries. Capillary refill normal. No cyanosis noted. No muscle wasting noted. Lower extremities show reduced range of movement. Pulses present noted to the popliteal and normal. No pulse in the ankle. Capillary refil not appreciated in the foot. Mottling is noted from the upper down. Dry necrosis noted in the right fifth digit. No movement noted in the foot or ankle. . Results Laboratory Results: 10/17/17 06:13 10/17/17 06:13 10/17/17 10/17/17 10/17/17 06:13 06:13 06:13 WBC 15.9 H RBC 3.56 L Hgb 12.0 L Hct 35.6 L MCV 100 H MCH 33.8 H MCHC 33.8 RDW 13.9 Plt Count 169 Seg Neutrophils % Not Reportable Lymphocytes % Not Reportable Monocytes % Not Reportable Eosinophils % Not Reportable Basophils % Not Reportable Absolute Neutrophils Not Reportable Absolute Lymphocytes Not Reportable Absolute Monocytes Not Reportable Absolute Eosinophils Not Reportable Absolute Basophils Not Reportable Carbonic Acid 1.12 HCO3/H2CO3 Ratio 23:1 ABG pH 7.47 H ABG pCO2 37.1 ABG pO2 73.3 L ABG HCO3 26.5 H ABG O2 Saturation 95.6 ABG Base Excess 2.9 FiO2 40% Sodium 139.2 Potassium 4.2 Chloride 106 Carbon Dioxide 27 Anion Gap 6 BUN 26 H Creatinine 0.70 Est GFR ( Amer) > 60 Est GFR (Non-Af Amer) > 60 Glucose 126 H Calcium 8.2 L Magnesium 2.2 Total Bilirubin 0.4 AST 46 ALT 102 H Alkaline Phosphatase 58 Total Protein 4.5 L Albumin 2.6 L 10/16/17 06:00 NT-Pro-B Natriuret Pep 2220 H Impressions: Abdomen/Pelvis CT 10/11/17 16:29 IMPRESSION: Tiny bilateral pleural effusions. Minimal basilar subsegmental atelectasis. Mild nonspecific pararenal fat stranding. No hydronephrosis or hydroureter. Hand X-Ray 10/11/17 16:43 IMPRESSION: Several punctate radiopaque foreign bodies appear present in the palmar soft tissue interspace between the 1st and 2nd digits. No fracture. Foot X-Ray 10/11/17 16:46 IMPRESSION: NEGATIVE STUDY OF THE LEFT FOOT. NO RADIOGRAPHIC EVIDENCE OF ACUTE INJURY. Head CT 10/11/17 17:05 IMPRESSION: No significant intracranial abnormalities were identified. Other findings as noted above. EVIDENCE OF ACUTE STROKE: NO. Chest X-Ray 10/17/17 06:00 IMPRESSION: 1. Improved aeration the lung bases bilaterally with likely small bilateral pleural effusions. Assessment & Plan - Diagnosis (1) Critical ischemia of foot Is this a current diagnosis for this admission?: Yes Plan: With a history of hypotension and use of vasopressors as well as sepsis, low flow in the small vessels of the legs seems responsible for the ischemia and the tissue loss, real and potential. Of note ultrasound of the lower extremities is really quite normal up to about the popliteal. This suggests intrinsic vascularity is normal or close to normal and that the ischemia is almost entirely due to a low-flow state. As such not generally surgically amenable. Therapy should be focused on adequate mean arterial pressure, currently 77 mmHg. And anticoagulation. I do not think any other measures are indicated at this time. Thrombolysis for example might verge on the experimental. The patient will probably end up with amputation. No indication for intervention at this time. Ideally the tissue loss will declare itself first. Transfer to a higher level of care such as a tertiary institution is to be considered. It seems however, that all the needed care is being rendered. I will be available for reconsult and opinion as needed. (2) Acute respiratory failure Qualifiers: Respiratory failure complication: hypoxia Qualified Code(s): J96.01 - Acute respiratory failure with hypoxia Is this a current diagnosis for this admission?: Yes (3) Alcohol use Is this a current diagnosis for this admission?: Yes (4) DIC syndrome Is this a current diagnosis for this admission?: Yes (5) Pneumonia Qualifiers: Pneumonia type: due to unspecified organism Is this a current diagnosis for this admission?: Yes (6) Sepsis associated hypotension Is this a current diagnosis for this admission?: Yes (7) Tobacco dependence Is this a current diagnosis for this admission?: Yes
[2017-10-17] MEDS: HEPARIN SODIUM,PORCINE/D5W 25,000 UNIT/250 ML RTUINJ IV PRN (18:26)
--- NOTE | 2017-10-17 21:10 | PDOC PROGRESS REPORT ---
Subjective Progress Note for:: 10/16/17 Subjective:: intubated Reason For Visit: SEPSIS Physical Exam Vital Signs: Temp Pulse Resp BP Pulse Ox 98.1 F 63 14 96/71 L 97 10/16/17 08:00 10/16/17 08:00 10/16/17 08:00 10/16/17 08:00 10/16/17 08:00 Intake & Output 10/15/17 10/16/17 10/17/17 06:59 06:59 06:59 Intake Total 2745 2662 Output Total 2865 1970 640 Balance -120 692 -640 Weight 72 kg 72.7 kg General appearance: PRESENT: no acute distress, disheveled, well-developed. ABSENT: cooperative Head exam: PRESENT: atraumatic, normocephalic Eye exam: PRESENT: conjunctiva pale. ABSENT: nystagmus, periorbital swelling, scleral icterus Mouth exam: PRESENT: dry mucosa, neck supple, tongue midline, other - ET tube Neck exam: ABSENT: carotid bruit, JVD, lymphadenopathy, thyromegaly, tracheal deviation, tracheostomy Respiratory exam: PRESENT: decreased breath sounds, prolonged expiratory phas, rales, rhonchi, symmetrical, unlabored. ABSENT: stridor, tachypnea Cardiovascular exam: PRESENT: RRR, +S1, +S2 Pulses: PRESENT: normal radial pulses GI/Abdominal exam: PRESENT: diminished bowel sounds, soft Extremities exam: ABSENT: clubbing, full ROM Musculoskeletal exam: ABSENT: deformity, dislocation, normal inspection Neurological exam: ABSENT: alert, awake, oriented to person Skin exam: PRESENT: dry, mottled, other. ABSENT: warm - see note vasular surgery Results Laboratory Results: 10/16/17 06:00 10/16/17 06:00 10/16/17 10/16/17 10/16/17 06:00 06:00 06:00 WBC 13.0 H RBC 3.44 L Hgb 11.7 L Hct 34.3 L MCV 100 H MCH 34.1 H MCHC 34.2 RDW 13.9 Plt Count 114 L Seg Neutrophils % Not Reportable Lymphocytes % Not Reportable Monocytes % Not Reportable Eosinophils % Not Reportable Basophils % Not Reportable Absolute Neutrophils Not Reportable Absolute Lymphocytes Not Reportable Absolute Monocytes Not Reportable Absolute Eosinophils Not Reportable Absolute Basophils Not Reportable Carbonic Acid 1.29 HCO3/H2CO3 Ratio 20:1 ABG pH 7.42 ABG pCO2 42.8 ABG pO2 66.2 L ABG HCO3 26.9 H ABG O2 Saturation 93.3 L ABG Base Excess 2.0 FiO2 50% Sodium 138.8 Potassium 3.5 L Chloride 105 Carbon Dioxide 28 Anion Gap 6 BUN 20 Creatinine 0.78 Est GFR ( Amer) > 60 Est GFR (Non-Af Amer) > 60 Glucose 102 Calcium 8.2 L Phosphorus 3.4 Magnesium 2.3 Total Bilirubin 0.2 AST 60 H ALT 116 H Alkaline Phosphatase 51 Total Protein 4.4 L Albumin 2.5 L Prealbumin 17.8 10/16/17 06:00 NT-Pro-B Natriuret Pep 2220 H Impressions: Abdomen/Pelvis CT 10/11/17 16:29 IMPRESSION: Tiny bilateral pleural effusions. Minimal basilar subsegmental atelectasis. Mild nonspecific pararenal fat stranding. No hydronephrosis or hydroureter. Hand X-Ray 10/11/17 16:43 IMPRESSION: Several punctate radiopaque foreign bodies appear present in the palmar soft tissue interspace between the 1st and 2nd digits. No fracture. Foot X-Ray 10/11/17 16:46 IMPRESSION: NEGATIVE STUDY OF THE LEFT FOOT. NO RADIOGRAPHIC EVIDENCE OF ACUTE INJURY. Head CT 10/11/17 17:05 IMPRESSION: No significant intracranial abnormalities were identified. Other findings as noted above. EVIDENCE OF ACUTE STROKE: NO. Chest X-Ray 10/16/17 06:00 IMPRESSION: No significant change. Assessment & Plan - Diagnosis (1) Acute respiratory failure Qualifiers: Respiratory failure complication: hypoxia Qualified Code(s): J96.01 - Acute respiratory failure with hypoxia Is this a current diagnosis for this admission?: Yes Plan: mechanical ventilation (2) Alcohol use Is this a current diagnosis for this admission?: Yes Plan: consider DT precautions (3) DIC syndrome Is this a current diagnosis for this admission?: Yes Plan: per surgical evaluation for feet and legs (4) Sepsis associated hypotension Is this a current diagnosis for this admission?: Yes Plan: 10/13/17 02:50 Gram Stain - Final Tracheal Aspirate Sputum Culture - Final Yeast, Not Shoshana Albicans Normal Agustina Absent 10/11/17 16:35 Blood Culture - Preliminary Blood Gram Negative Rods 10/11/17 14:44 Blood Culture - Preliminary Blood Gram Negative Rods - Time Total Critical Time (Minutes): 40
--- NOTE | 2017-10-17 21:12 | PDOC PROGRESS REPORT ---
Subjective Progress Note for:: 10/17/17 Subjective:: intubated Reason For Visit: SEPSIS Physical Exam Vital Signs: Temp Pulse Resp BP Pulse Ox 97.6 F 63 14 117/81 94 10/17/17 08:00 10/17/17 08:50 10/17/17 08:50 10/17/17 06:04 10/17/17 08:50 Intake & Output 10/16/17 10/17/17 10/18/17 06:59 06:59 06:59 Intake Total 2662 3337 Output Total 1970 2515 150 Balance 692 822 -150 Weight 72.7 kg 70.6 kg General appearance: PRESENT: no acute distress, disheveled, well-developed. ABSENT: cooperative Head exam: PRESENT: atraumatic, normocephalic Eye exam: PRESENT: conjunctiva pale. ABSENT: nystagmus, periorbital swelling, scleral icterus Mouth exam: PRESENT: dry mucosa, neck supple, tongue midline, other - ET tube Neck exam: ABSENT: carotid bruit, JVD, lymphadenopathy, thyromegaly, tracheal deviation, tracheostomy Respiratory exam: PRESENT: decreased breath sounds, prolonged expiratory phas, rhonchi, symmetrical, unlabored. ABSENT: rales, stridor Cardiovascular exam: PRESENT: RRR, +S1, +S2 Pulses: PRESENT: normal radial pulses GI/Abdominal exam: PRESENT: diminished bowel sounds, soft Gentrourinary exam: PRESENT: indwelling catheter Extremities exam: ABSENT: calf tenderness, clubbing Musculoskeletal exam: ABSENT: deformity, dislocation Neurological exam: ABSENT: alert, awake, oriented to person Skin exam: PRESENT: dry, mottled Results Laboratory Results: 10/17/17 06:13 10/17/17 06:13 10/17/17 10/17/17 10/17/17 06:13 06:13 06:13 WBC 15.9 H RBC 3.56 L Hgb 12.0 L Hct 35.6 L MCV 100 H MCH 33.8 H MCHC 33.8 RDW 13.9 Plt Count 169 Seg Neutrophils % Not Reportable Lymphocytes % Not Reportable Monocytes % Not Reportable Eosinophils % Not Reportable Basophils % Not Reportable Absolute Neutrophils Not Reportable Absolute Lymphocytes Not Reportable Absolute Monocytes Not Reportable Absolute Eosinophils Not Reportable Absolute Basophils Not Reportable Carbonic Acid 1.12 HCO3/H2CO3 Ratio 23:1 ABG pH 7.47 H ABG pCO2 37.1 ABG pO2 73.3 L ABG HCO3 26.5 H ABG O2 Saturation 95.6 ABG Base Excess 2.9 FiO2 40% Sodium 139.2 Potassium 4.2 Chloride 106 Carbon Dioxide 27 Anion Gap 6 BUN 26 H Creatinine 0.70 Est GFR ( Amer) > 60 Est GFR (Non-Af Amer) > 60 Glucose 126 H Calcium 8.2 L Magnesium 2.2 Total Bilirubin 0.4 AST 46 ALT 102 H Alkaline Phosphatase 58 Total Protein 4.5 L Albumin 2.6 L 10/16/17 06:00 NT-Pro-B Natriuret Pep 2220 H Impressions: Abdomen/Pelvis CT 10/11/17 16:29 IMPRESSION: Tiny bilateral pleural effusions. Minimal basilar subsegmental atelectasis. Mild nonspecific pararenal fat stranding. No hydronephrosis or hydroureter. Hand X-Ray 10/11/17 16:43 IMPRESSION: Several punctate radiopaque foreign bodies appear present in the palmar soft tissue interspace between the 1st and 2nd digits. No fracture. Foot X-Ray 10/11/17 16:46 IMPRESSION: NEGATIVE STUDY OF THE LEFT FOOT. NO RADIOGRAPHIC EVIDENCE OF ACUTE INJURY. Head CT 10/11/17 17:05 IMPRESSION: No significant intracranial abnormalities were identified. Other findings as noted above. EVIDENCE OF ACUTE STROKE: NO. Chest X-Ray 10/17/17 06:00 IMPRESSION: 1. Improved aeration the lung bases bilaterally with likely small bilateral pleural effusions. Assessment & Plan - Diagnosis (1) Acute respiratory failure Qualifiers: Respiratory failure complication: hypoxia Qualified Code(s): J96.01 - Acute respiratory failure with hypoxia Is this a current diagnosis for this admission?: Yes Plan: mechanical ventilation (2) Alcohol use Is this a current diagnosis for this admission?: Yes Plan: consider DT precautions (3) DIC syndrome Is this a current diagnosis for this admission?: Yes Plan: per surgical evaluation for feet and legs (4) Sepsis associated hypotension Is this a current diagnosis for this admission?: Yes Plan: 10/13/17 02:50 Gram Stain - Final Tracheal Aspirate Sputum Culture - Final Yeast, Not Shoshana Albicans Normal Agustina Absent 10/11/17 16:35 Blood Culture - Preliminary Blood Gram Negative Rods 10/11/17 14:44 Blood Culture - Preliminary Blood Gram Negative Rods - Time Total Critical Time (Minutes): 40
[2017-10-18] MEDS: NORMAL SALINE 1000 ML 1,000 ML IV PRN ×3 (00:33→19:15)
[2017-10-18] MEDS: METHYLPREDNISOLONE INJ 40 MG/1 ML SDV IV SCH ×3 (01:50→18:56)
[2017-10-18] MEDS: HYDROMORPHONE HCL INJ/PF 2 MG/ML AMPULE IV PRN ×6 (02:24→22:30)
[2017-10-18] MEDS: LORAZEPAM 24 MG/240 ML BAG IV PRN ×2 (03:16→12:30)
[2017-10-18] MEDS: CLINDAMYCIN 900 MG/D5W RTU 50 ML IV SCH ×2 (05:30→13:44)
[2017-10-18] MEDS: CEFEPIME HCL 2 GM in NORMAL SALINE 100 ML IV SCH (05:31)
[2017-10-18] MEDS ORDERED: MIDAZOLAM HCL 50 MG/100 ML RTUINJ IV ONE (06:26)
[2017-10-18 07:07] LABS: ALANINE AMINOTRANSFERASE 77 U/L (21-72); ALBUMIN 2.4 g/dL (3.5-5.0); ALKALINE PHOSPHATASE 55 U/L (38-126); ANION GAP 5 (5-19); ASPARTATE AMINO TRANSFERASE 34 U/L (17-59); BILIRUBIN,DIRECT 0.1 mg/dL (0.0-0.4); BILIRUBIN,TOTAL 0.3 mg/dL (0.2-1.3); BLOOD UREA NITROGEN 27 mg/dL (7-20); CALCIUM 7.9 mg/dL (8.4-10.2); CARBON DIOXIDE 27 mmol/L (22-30); CHLORIDE 106 mmol/L (98-107); GLUCOSE 118 mg/dL (75-110); PHOSPHORUS 3.6 mg/dL (2.5-4.5); SODIUM 137.8 mmol/L (137-145); TOTAL PROTEIN 4.3 g/dL (6.3-8.2)
[2017-10-18 07:12] LABS: INTERNATIONAL RATION (INR) 0.93; PARTIAL THROMBOPLASTIN TIME 28.9 SEC (23.5-35.8); PROTHROMBIN TIME 13.2 SEC (11.4-15.4)
[2017-10-18 07:18] LABS: HEMOGLOBIN 11.6 g/dL (13.5-17.0); MEAN CORPUSCULAR HEMOGLOBIN 34.1 pg (27.0-33.4); MEAN CORPUSCULAR HGB CONC 34.3 g/dL (32.0-36.0); MEAN CORPUSCULAR VOLUME 99 fl (80-97); PLATELET COUNT 201 10^3/uL (150-450); RED BLOOD COUNT 3.42 10^6/uL (4.35-5.55); WHITE BLOOD COUNT 18.8 10^3/uL (4.0-10.5)
[2017-10-18] MEDS ORDERED: ZIPRASIDONE MESYLATE INJ/PF 20 MG SDV IM PRN (07:19)
[2017-10-18] MEDS ORDERED: MIDAZOLAM HCL 50 MG/100 ML RTUINJ IV PRN (07:19)
--- NOTE | 2017-10-18 07:30 | RADIOLOGY REPORT (SQ) ---
EXAM DESCRIPTION: CHEST SINGLE VIEW CLINICAL HISTORY: resp fail COMPARISON: 10/17/2017 FINDINGS: Single frontal view of the chest. Endotracheal tube with tip just below the clavicles. NG tube with tip below the diaphragm. Cardiac silhouette is stable. Leads overlie the chest. Small bilateral pleural effusions are unchanged. No pneumothorax. No acute osseous abnormalities. Upper abdominal soft tissues are unremarkable. IMPRESSION: 1. Stable appearance of the chest. Electronically signed by: Philip Deluna 10/18/2017 6:28 AM
[2017-10-18 07:58] LABS: ARTERIAL BLOOD FIO2 40%; ARTERIAL BLOOD HCO3 26.9 mmol/L (20-26); ARTERIAL BLOOD O2 SATURATION 95.2 % (94-98); ARTERIAL BLOOD PCO2 43.1 mmHg (35-45); ARTERIAL BLOOD PH 7.41 (7.35-7.45); ARTERIAL BLOOD PO2 75.1 mmHg (80-100); ARTERIAL BLOOD TOTAL CO2 28.2 mmol/L (23-27)
[2017-10-18] MEDS: IPRATROPIUM/ALBUTEROL 0.5-2.5 MG/3 ML AMPUL NEB SCH ×4 (08:04→20:11)
--- NOTE | 2017-10-18 08:05 | PDOC PROGRESS REPORT ---
Subjective Progress Note for:: 10/18/17 Subjective:: Patient remains sedated on vent. Nurses report increased pain and agitation when sedation is decreased. Reason For Visit: SEPSIS Physical Exam Vital Signs: Temp Pulse Resp BP Pulse Ox 98.1 F 64 14 124/83 91 L 10/18/17 06:05 10/17/17 20:14 10/18/17 06:05 10/18/17 06:05 10/18/17 06:05 Intake & Output 10/17/17 10/18/17 10/19/17 06:59 06:59 06:59 Intake Total 3337 3987 Output Total 2515 1765 Balance 822 2222 Weight 70.6 kg 74.3 kg General appearance: PRESENT: no acute distress Exam: Remains on vent. Respiratory exam: PRESENT: clear to auscultation nuvia, unlabored Cardiovascular exam: PRESENT: RRR Vascular exam: PRESENT: other - Feet are progressively worse today. It appears to be moving up ankles. Left ear also now shows evidence of ischemia. Skin exam: PRESENT: mottled Results Laboratory Results: 10/18/17 05:10 10/18/17 10/18/17 05:10 05:10 Carbonic Acid 1.30 HCO3/H2CO3 Ratio 20:1 ABG pH 7.41 ABG pCO2 43.1 ABG pO2 75.1 L ABG HCO3 26.9 H ABG O2 Saturation 95.2 ABG Base Excess 2.0 FiO2 40% Sodium 137.8 Potassium 4.0 Chloride 106 Carbon Dioxide 27 Anion Gap 5 BUN 27 H Creatinine 0.67 Est GFR ( Amer) > 60 Est GFR (Non-Af Amer) > 60 Glucose 118 H Calcium 7.9 L Phosphorus 3.6 Magnesium 2.3 Total Bilirubin 0.3 AST 34 ALT 77 H Alkaline Phosphatase 55 Total Protein 4.3 L Albumin 2.4 L 10/16/17 06:00 NT-Pro-B Natriuret Pep 2220 H Impressions: Abdomen/Pelvis CT 10/11/17 16:29 IMPRESSION: Tiny bilateral pleural effusions. Minimal basilar subsegmental atelectasis. Mild nonspecific pararenal fat stranding. No hydronephrosis or hydroureter. Hand X-Ray 10/11/17 16:43 IMPRESSION: Several punctate radiopaque foreign bodies appear present in the palmar soft tissue interspace between the 1st and 2nd digits. No fracture. Foot X-Ray 10/11/17 16:46 IMPRESSION: NEGATIVE STUDY OF THE LEFT FOOT. NO RADIOGRAPHIC EVIDENCE OF ACUTE INJURY. Head CT 10/11/17 17:05 IMPRESSION: No significant intracranial abnormalities were identified. Other findings as noted above. EVIDENCE OF ACUTE STROKE: NO. Chest X-Ray 10/18/17 06:00 IMPRESSION: 1. Stable appearance of the chest. Assessment & Plan - Diagnosis (1) DIC syndrome Is this a current diagnosis for this admission?: Yes Plan: Now resolved. Platelets and coagulopathy have improved. I would change to full dose anticoagulation with either standard heparin drip or Lovenox 1 mg/kg SC BID. Agree with surgeon's assessment. Patient will need more pain medication and less sedation in order to adequately wean from vent. Consider pain management consult and IV morphine or dilaudid drip.
[2017-10-18 08:29] LABS: BASOPHILS % (MANUAL) 0 % (0-2); EOSINOPHILS % (MANUAL) 0 % (0-6); SEGMENTED NEUTROPHILS % (MAN) 83 % (42-78); TOTAL CELLS COUNTED 100
[2017-10-18 08:30] LABS: ABSOLUTE LYMPHOCYTES# (MANUAL) 0.8 10^3/uL (0.5-4.7); ABSOLUTE MONOCYTES # (MANUAL) 1.7 10^3/uL (0.1-1.4); ABSOLUTE NEUTROPHILS# (MANUAL) 16.4 10^3/uL (1.7-8.2); BAND NEUTROPHILS % (MANUAL) 1 % (3-5); LYMPHOCYTES % (MANUAL) 4 % (13-45); METAMYELOCYTES % (MANUAL) 3 % (0); MONOCYTES % (MANUAL) 9 % (3-13); PLATELET COMMENT ADEQUATE; TOXIC GRANULATION 1+
[2017-10-18 08:31] LABS: ANISOCYTOSIS SLIGHT; HYPOCHROMASIA SLIGHT; PLATELET CLUMPS PRESENT; PLATELET LARGE PRESENT
--- NOTE | 2017-10-18 10:02 | PDOC PROGRESS REPORT ---
Subjective Progress Note for:: 10/18/17 Subjective:: 57-year-old male with no significant medical problems presented to the emergency department with a 1-2 week history of a nonproductive cough associated with fevers, chills, and malaise. He is a smoker and uses alcohol regularly. The night before admission, he had significant chills. His appetite was poor. He reported a dog bite on his left index finger prior to his symptoms. Apparently his symptoms progressed to the point that EMS was called. In the ED, he was hypotensive, tachycardic, and febrile. Initially, there was no obvious source. He was started on IV fluids as well as empiric antibiotics for suspected sepsis. He also required IV Levophed. In the ED, he also complained of lower extremity pain. According to the ED physician, his skin of his lower legs had a mottled appearance. He had reduce pedal pulses bilaterally at that point according to the ED physician. He was admitted to the ICU. On admission he was hyponatremic with a sodium of 129. His creatinine was 2.42. He also had elevated AST and ALT of 895 and 400 respectively. His lactic acid was 4.6 his white blood cell count was 6.6. Hemoglobin was 15.5. Platelet was 61,000. Head CT showed no significant intracranial abnormalities. X-rays of the left foot show no evidence of acute injury. X-ray of the left hand shows several punctate radiopaque foreign bodies present in the palmar soft tissue interspace between the first and second digits. No fractures noted. Chest x-ray showed no acute radiographic findings. CT of the abdomen/ pelvis showed tiny bilateral pleural effusions. There was minimal basilar subsegmental atelectasis. Mild nonspecific perarenal fat stranding is noted. No hydronephrosis or hydroureter was seen. Oct 12, 2017 He had periods of agitation and restlessness. He was not following commands. Hypotension improved. Levophed was discontinued. He was continued on antibiotics. Lorazepam was started for DVT prophylaxis. Sodium increased to 133. Liver enzymes decreased. White count increased to 11.6. Hemoglobin dropped from 15.5-10.1. Platelet count decreased 34,000. Pedal pulses were palpable. No cyanosis was noted. October 13, 2017 His respiratory status deteriorated overnight requiring intubation. Chest x- ray demonstrated interval worsening: Moderate pulmonary edema; differential includes multifocal pneumonia. His pedal pulses were noted to be decreased. His feet were cool with some mottling. Oct 14 He remains intubated. Oncology consult was obtained for possible DIC. The count remained low at 35,000. However, he received a platelet transfusion prior to this. His creatinine and liver enzymes also improved. Chest x-ray showed interval worsening including small left basilar opacity. He was started on low-dose heparin. Lower extremity venous Doppler showed no evidence of DVT. Lower extremity arterial studies suggested occluded distal posterior and anterior tibial arteries. Completely normal velocity and triphasic waveforms noted from the common femoral artery to the infrageniculate vessels. Occlusion in the distal infrageniculate arteries. CHON was not done. On the left side, there was an occluded dorsalis pedis artery. ABIs were not done. Oct 15 Blood culture starting to grow gram-negative rods, and yeast in the sputum. Vancomycin was discontinued. Levaquin was also stopped. IV fluconazole was started. He was continued on cefepime and clindamycin. He remained on IV heparin for concern for ischemic limits. Some recent chest x-ray suggested pneumonia. Orthopedics was informally consulted, and did not think that his left hand needed to be I&D'd. His sodium started to normalize. Oct 16 He remains intubated. He awakens when sedation is turned down. Platelets started to improve. Echocardiogram was ordered. Blood culture still pending. He remains on Solu-Medrol given his history of long-term smoking. Plus, he was noted to be wheezing on exam. Discussed with Dr. Salgado of surgery, who stated there really appears to be nothing surgical that can do done at this time but to ensure adequate BP to enhance flow. Pt also being treated with low dose anticoagulation will heparin 5 units/kg per hr. Oct 17 Remains intubated. No problems overnight. He awakens when the sedation is turned off. He responds to pain. October 18 He remains intubated. Overnight he was agitated. He was started on Versed drip in addition to Lorazepam drip. He also received a dose of Geodon 20 mg IM. He was seen by general surgery yesterday. No immediate intervention is warranted for his ischemic limits. However, both consultants, oncology and surgery indicated that pain control would be beneficial. He is receiving tube feeds. Per RN, he has not had a bowel movement in time. Reason For Visit: SEPSIS Physical Exam Vital Signs: Temp Pulse Resp BP Pulse Ox 98.1 F 75 14 117/79 92 10/18/17 08:00 10/18/17 08:04 10/18/17 08:04 10/18/17 08:00 10/18/17 08:04 Intake & Output 10/17/17 10/18/17 10/19/17 06:59 06:59 06:59 Intake Total 3337 3987 Output Total 7295 1765 420 Balance 822 2222 -420 Weight 70.6 kg 74.3 kg General appearance: PRESENT: no acute distress, well-developed, well-nourished Head exam: PRESENT: atraumatic, normocephalic Respiratory exam: PRESENT: symmetrical, unlabored Cardiovascular exam: PRESENT: RRR. ABSENT: diastolic murmur, rubs, systolic murmur GI/Abdominal exam: PRESENT: diminished bowel sounds, soft. ABSENT: distended, firm Neurological exam: PRESENT: other - Sedated Skin exam: PRESENT: cyanosis - Bilateral lower extremities, mottled Results Laboratory Results: 10/18/17 05:10 10/18/17 05:10 10/18/17 10/18/17 10/18/17 05:10 05:10 05:10 WBC 18.8 H RBC 3.42 L Hgb 11.6 L Hct 34.0 L MCV 99 H MCH 34.1 H MCHC 34.3 RDW 14.0 Plt Count 201 Seg Neutrophils % Not Reportable Lymphocytes % Not Reportable Monocytes % Not Reportable Eosinophils % Not Reportable Basophils % Not Reportable Absolute Neutrophils Not Reportable Absolute Lymphocytes Not Reportable Absolute Monocytes Not Reportable Absolute Eosinophils Not Reportable Absolute Basophils Not Reportable Carbonic Acid 1.30 HCO3/H2CO3 Ratio 20:1 ABG pH 7.41 ABG pCO2 43.1 ABG pO2 75.1 L ABG HCO3 26.9 H ABG O2 Saturation 95.2 ABG Base Excess 2.0 FiO2 40% Sodium 137.8 Potassium 4.0 Chloride 106 Carbon Dioxide 27 Anion Gap 5 BUN 27 H Creatinine 0.67 Est GFR ( Amer) > 60 Est GFR (Non-Af Amer) > 60 Glucose 118 H Calcium 7.9 L Phosphorus 3.6 Magnesium 2.3 Total Bilirubin 0.3 AST 34 ALT 77 H Alkaline Phosphatase 55 Total Protein 4.3 L Albumin 2.4 L 10/16/17 06:00 NT-Pro-B Natriuret Pep 2220 H Impressions: Abdomen/Pelvis CT 10/11/17 16:29 IMPRESSION: Tiny bilateral pleural effusions. Minimal basilar subsegmental atelectasis. Mild nonspecific pararenal fat stranding. No hydronephrosis or hydroureter. Hand X-Ray 10/11/17 16:43 IMPRESSION: Several punctate radiopaque foreign bodies appear present in the palmar soft tissue interspace between the 1st and 2nd digits. No fracture. Foot X-Ray 10/11/17 16:46 IMPRESSION: NEGATIVE STUDY OF THE LEFT FOOT. NO RADIOGRAPHIC EVIDENCE OF ACUTE INJURY. Head CT 10/11/17 17:05 IMPRESSION: No significant intracranial abnormalities were identified. Other findings as noted above. EVIDENCE OF ACUTE STROKE: NO. Chest X-Ray 10/18/17 06:00 IMPRESSION: 1. Stable appearance of the chest. Assessment & Plan - Diagnosis (1) Abnormal LFTs Is this a current diagnosis for this admission?: Yes Plan: Improved dramatically. Almost back to baseline, except for ALT of 77 (2) Acute respiratory failure Qualifiers: Respiratory failure complication: hypoxia Qualified Code(s): J96.01 - Acute respiratory failure with hypoxia Is this a current diagnosis for this admission?: Yes Plan: Continue ventilator support. He is not ready for liberation. I will continue Geodon for severe agitation. Appreciate Dr Pollock help. (3) Alcohol use Is this a current diagnosis for this admission?: Yes Plan: lorazepam drip for sedation. I will discontinue the Versed drip. (4) Critical ischemia of foot Is this a current diagnosis for this admission?: Yes Plan: Appreciate surgical consultation. I will start him on a Dilaudid UNDERLAY STITCHER for better pain control. I will also start him on subcutaneous enoxaparin 1 mg/kg twice daily per oncology recommendations. (5) DIC syndrome Is this a current diagnosis for this admission?: Yes Plan: Resolved. (6) Dog bite Qualifiers: Encounter type: subsequent encounter Qualified Code(s): W54.0XXD - Bitten by dog, subsequent encounter Is this a current diagnosis for this admission?: Yes Plan: His blood is growing Capnocytophaga species, most likely from the bite. Continue clindamycin. Day 7. I will continue antibiotics for 14 days because of the bacteremia. Stop cefepime. (7) Hyponatremia Is this a current diagnosis for this admission?: Yes Plan: Resolved. (8) Pneumonia Qualifiers: Pneumonia type: due to unspecified organism Is this a current diagnosis for this admission?: Yes Plan: Continue clindamycin. Day 7 antibiotics. (9) Sepsis Qualifiers: Sepsis type: sepsis due to unspecified organism Qualified Code(s): A41.9 - Sepsis, unspecified organism Is this a current diagnosis for this admission?: Yes Plan: Blood cultures x2 growing capnocytophaga species. Day 7 antibiotics. stop cefepime. Continue clindamycin. He will need 14 days of antibiotic tx. (10) Tobacco dependence Is this a current diagnosis for this admission?: Yes Plan: Nicotine patch - Time Time Spent with patient: 25-34 minutes Medications reviewed and adjusted accordingly: Yes [facility]ticipated [facility] Certification Based on my medical assessment, after consideration of the patient's comorbidities, presenting symptoms, or acuity I expect that the services needed warrant INPATIENT care.: Yes I certify that my determination is in accordance with my understanding of Medicare's requirements for reasonable and necessary INPATIENT services [42 CFR 412.3e].: Yes Medical Necessity: Need Close Monitoring Due to Risk of Patient Decompensation, Need for Pain Control, Need for IV Antibiotics
[2017-10-18] MEDS: FLUCONAZOLE 200 MG/NS RTU 100 ML IV SCH (11:31)
[2017-10-18] MEDS: FAMOTIDINE INJ/PF 20 MG/2 ML SDV IV SCH ×2 (11:32→21:26)
[2017-10-18] MEDS: NICOTINE 21 MG/24 HR PATCH.TD24 TD SCH (11:32)
[2017-10-18 20:17] LABS: APPEARANCE,URINE CLEAR; BILIRUBIN,URINE NEGATIVE (NEGATIVE); COLOR,URINE STRAW; GLUCOSE, URINE NEGATIVE (NEGATIVE); KETONES,URINE NEGATIVE (NEGATIVE); LEUKOCYTE ESTERASE,URINE NEGATIVE (NEGATIVE); NITRITE,URINE NEGATIVE (NEGATIVE); PROTEIN,URINE NEGATIVE (NEGATIVE); URINE SPECIFIC GRAVITY 1.006; UROBILINOGEN,URINE NEGATIVE mg/dL (<2.0)
[2017-10-18] MEDS: ENOXAPARIN SODIUM INJ 80 MG/0.8 ML DISP.SYRIN SUBCUT SCH (21:27)
[2017-10-19] MEDS: LORAZEPAM 24 MG/240 ML BAG IV PRN (00:29)
[2017-10-19] MEDS: METHYLPREDNISOLONE INJ 40 MG/1 ML SDV IV SCH ×3 (01:17→18:51)
[2017-10-19] MEDS: HYDROMORPHONE HCL INJ/PF 2 MG/ML AMPULE IV PRN ×3 (01:17→10:06)
[2017-10-19] MEDS: NORMAL SALINE 1000 ML 1,000 ML IV PRN ×2 (01:17→09:02)
[2017-10-19] MEDS ORDERED: METHYLPREDNISOLONE INJ 40 MG/1 ML SDV ONE (05:24)
[2017-10-19] MEDS: IPRATROPIUM/ALBUTEROL 0.5-2.5 MG/3 ML AMPUL NEB SCH ×3 (08:22→16:32)
[2017-10-19 09:23] LABS: ARTERIAL BLOOD BASE EXCESS 0.8 mmol/L; ARTERIAL BLOOD H2CO3 0.88 mmol/L (1.05-1.35); ARTERIAL BLOOD HCO3 22.9 mmol/L (20-26); ARTERIAL BLOOD O2 SATURATION 95.6 % (94-98); ARTERIAL BLOOD PCO2 29.2 mmHg (35-45); ARTERIAL BLOOD PH 7.51 (7.35-7.45); ARTERIAL BLOOD PO2 69.6 mmHg (80-100); ARTERIAL BLOOD TOTAL CO2 23.8 mmol/L (23-27)
[2017-10-19 09:24] LABS: ARTERIAL BLOOD FIO2 40%
[2017-10-19 09:25] LABS: HEMATOCRIT 36.2 % (37.9-51.0); HEMOGLOBIN 12.1 g/dL (13.5-17.0); MEAN CORPUSCULAR HEMOGLOBIN 33.5 pg (27.0-33.4); MEAN CORPUSCULAR HGB CONC 33.5 g/dL (32.0-36.0); MEAN CORPUSCULAR VOLUME 100 fl (80-97); PLATELET COUNT 261 10^3/uL (150-450); RED BLOOD COUNT 3.62 10^6/uL (4.35-5.55); RED CELL DISTRIBUTION WIDTH 14.4 % (11.5-14.0); WHITE BLOOD COUNT 22.1 10^3/uL (4.0-10.5)
[2017-10-19 09:38] LABS: ANION GAP 5 (5-19); BLOOD UREA NITROGEN 22 mg/dL (7-20); CALCIUM 8.2 mg/dL (8.4-10.2); CARBON DIOXIDE 26 mmol/L (22-30); CHLORIDE 107 mmol/L (98-107); GLUCOSE 104 mg/dL (75-110); POTASSIUM 4.5 mmol/L (3.6-5.0)
[2017-10-19 09:45] LABS: ABSOLUTE LYMPHOCYTES# (MANUAL) 0.9 10^3/uL (0.5-4.7); ABSOLUTE MONOCYTES # (MANUAL) 0.7 10^3/uL (0.1-1.4); ABSOLUTE NEUTROPHILS# (MANUAL) 20.6 10^3/uL (1.7-8.2); BAND NEUTROPHILS % (MANUAL) 1 % (3-5); BASOPHILS % (MANUAL) 0 % (0-2); EOSINOPHILS % (MANUAL) 0 % (0-6); LYMPHOCYTES % (MANUAL) 4 % (13-45); METAMYELOCYTES % (MANUAL) 1 % (0); MONOCYTES % (MANUAL) 3 % (3-13); SEGMENTED NEUTROPHILS % (MAN) 91 % (42-78); TOTAL CELLS COUNTED 100
[2017-10-19 09:46] LABS: TOXIC GRANULATION 2+
[2017-10-19 09:47] LABS: ANISOCYTOSIS SLIGHT; OVALOCYTES SLIGHT; PLATELET COMMENT ADEQUATE; POIKILOCYTOSIS SLIGHT; POLYCHROMASIA SLIGHT; SCHISTOCYTES SLIGHT
[2017-10-19] MEDS: NICOTINE 21 MG/24 HR PATCH.TD24 TD SCH (10:03)
[2017-10-19] MEDS: FLUCONAZOLE 200 MG/NS RTU 100 ML IV SCH (10:03)
[2017-10-19] MEDS: ENOXAPARIN SODIUM INJ 80 MG/0.8 ML DISP.SYRIN SUBCUT SCH (10:07)
[2017-10-19] MEDS: FAMOTIDINE INJ/PF 20 MG/2 ML SDV IV SCH (10:07)
[2017-10-19] MEDS ORDERED: IMIPENEM/CILASTATIN SODIUM 500 MG in NORMAL SALINE 100 ML IV ONE (10:30)
--- NOTE | 2017-10-19 12:17 | PDOC TRANSFER SUMMARY ---
General Admission Date/PCP: 10/11/17 18:42 Admission Date: 10/11/17 Transfer Date: 10/19/17 Accepting Facility: [facility] Accepting Physician: Dr King Conrad Resuscitation Status: Full Code - Transfer Diagnosis (1) Abnormal LFTs Is this a current diagnosis for this admission?: Yes (2) Acute respiratory failure Is this a current diagnosis for this admission?: Yes (3) Alcohol use Is this a current diagnosis for this admission?: Yes (4) Critical ischemia of foot Is this a current diagnosis for this admission?: Yes (5) DIC syndrome Is this a current diagnosis for this admission?: Yes (6) Dog bite Is this a current diagnosis for this admission?: Yes (7) Hyponatremia Is this a current diagnosis for this admission?: Yes (8) Pneumonia Is this a current diagnosis for this admission?: Yes (9) Sepsis Is this a current diagnosis for this admission?: Yes (10) Tobacco dependence Is this a current diagnosis for this admission?: Yes - Transfer Medications Home Medications: No Home Medications 10/11/17 Transfer Medications: Current Medications Albuterol/Ipratropium (Duoneb 3 Ml Ampul) 3 ml NEB RTQID LUISITO Stop: 11/10/17 19:59 Last Admin: 10/19/17 08:22 Dose: 3 ml Enoxaparin Sodium (Lovenox Inj 80 Mg/0.8 Ml Disp.Syrin) 75 mg SUBCUT Q12 LUISITO Stop: 11/17/17 21:59 Last Admin: 10/19/17 10:07 Dose: 75 mg Famotidine (Pepcid Inj/Pf 20 Mg/2 Ml Sdv) 20 mg IV Q12 LUISITO Stop: 11/15/17 21:59 Last Admin: 10/19/17 10:07 Dose: 20 mg Hydromorphone HCl (Dilaudid Inj/Pf 2 Mg/Ml Ampule) 2 mg IV Q3HP PRN Stop: 10/25/17 13:36 Last Admin: 10/19/17 10:06 Dose: 2 mg Sodium Chloride (Nacl 0.9% 1000 Ml Iv Soln) 1,000 mls @ 150 mls/hr IV CONTINUOUS PRN PRN Reason: THIS MED IS NOT "PRN" Stop: 11/10/17 17:21 Last Admin: 10/19/17 09:02 Dose: 1,000 ml Hard Fat/Phenylephrine 40 mg/ (Dextrose) 250 mls @ 0 mls/hr IV CONTINUOUS PRN; Protocol; Titrate PRN Reason: THIS MED IS NOT "PRN" Stop: 11/10/17 19:32 Last Admin: 10/11/17 20:45 Dose: 40 mg Norepinephrine Bitartrate 4 mg (/ Dextrose) 250 mls @ 0 mls/hr IV CONTINUOUS PRN; Protocol; Titrate PRN Reason: THIS MED IS NOT "PRN" Stop: 11/10/17 19:44 Lorazepam (Ativan Iv Infusion 24 Mg/240 Ml Bag) 24 mg in 240 mls @ 0 mls/hr IV CONTINUOUS PRN; Protocol; Titrate PRN Reason: THIS MED IS NOT "PRN" Stop: 10/20/17 13:55 Last Admin: 10/19/17 00:29 Dose: 240 ml Fluconazole/Sodium Chloride (Diflucan Rtu 200 Mg/Ns 100 Ml Premix) 100 mls @ 100 mls/hr IV DAILY LUISITO Stop: 10/22/17 09:59 Last Admin: 10/19/17 10:03 Dose: 100 ml Imipenem/Cilastatin Sodium 500 (mg/ Sodium Chloride) 100 mls @ 100 mls/hr IV Q6A [facility] Stop: 10/26/17 14:59 Influenza Virus Vaccine Quadrival (Fluzone Adlt Quad [id number] Vac 0.5 Ml Syr) 0.5 ml IM .DISCHARGE PRN PRN Reason: THIS MED IS NOT "PRN" Stop: 11/11/17 14:18 Methylprednisolone Sodium Succinate (Solu-Medrol Inj/Pf 40 Mg/1 Ml Sdv) 40 mg IV Q8A [facility] Stop: 11/12/17 17:59 Last Admin: 10/19/17 10:06 Dose: 40 mg Nicotine (Nicoderm 21 Mg/24 Hr Transderm Patch) 1 each TD DAILY LUISITO Stop: 11/11/17 09:59 Last Admin: 10/19/17 10:03 Dose: 1 each Pharmacy Profile Note (Medication Communication Order) 1 each [facility] .NOTICE NR Stop: 11/12/17 02:14 Sodium Chloride (Saline Flush 2.5 Ml Monoject Prefil Syrin) 2.5 ml IV Q8 [facility]ISITO Stop: 11/10/17 21:59 Last Admin: 10/19/17 05:05 Dose: 2.5 ml Ziprasidone (Geodon Inj/Pf 20 Mg Sdv) 10 mg IM Q12HP PRN PRN Reason: AGITATION Stop: 11/17/17 07:18 Last Admin: 10/18/17 13:40 Dose: 10 mg - Allergies Allergies/Adverse Reactions: Penicillins Allergy (Verified 10/11/17 15:29) - Diet/Activity Discharge Diet: Tube Feeding (Comments) Discharge Activity: Bedrest Hospital Course Hospital Course: 57-year-old male with no significant medical problems presented to the emergency department with a 1-2 week history of a nonproductive cough associated with fevers, chills, and malaise. He is a smoker and uses alcohol regularly. The night before admission, he had significant chills. His appetite was poor. He reported a dog bite on his left index finger prior to his symptoms. Apparently his symptoms progressed to the point that EMS was called. In the ED, he was hypotensive, tachycardic, and febrile. Initially, there was no obvious source. He was started on IV fluids as well as empiric antibiotics for suspected sepsis. He also required IV Levophed. In the ED, he also complained of lower extremity pain. According to the ED physician, his skin of his lower legs had a mottled appearance. He had reduce pedal pulses bilaterally at that point according to the ED physician. He was admitted to the ICU. On admission he was hyponatremic with a sodium of 129. His creatinine was 2.42. He also had elevated AST and ALT of 895 and 400 respectively. His lactic acid was 4.6 his white blood cell count was 6.6. Hemoglobin was 15.5. Platelet was 61,000. Head CT showed no significant intracranial abnormalities. X-rays of the left foot show no evidence of acute injury. X-ray of the left hand shows several punctate radiopaque foreign bodies present in the palmar soft tissue interspace between the first and second digits. No fractures noted. Chest x-ray showed no acute radiographic findings. CT of the abdomen/ pelvis showed tiny bilateral pleural effusions. There was minimal basilar subsegmental atelectasis. Mild nonspecific perarenal fat stranding is noted. No hydronephrosis or hydroureter was seen. Oct 12, 2017 He had periods of agitation and restlessness. He was not following commands. Hypotension improved. Levophed was discontinued. He was continued on antibiotics. Lorazepam was started for DVT prophylaxis. Sodium increased to 133. Liver enzymes decreased. White count increased to 11.6. Hemoglobin dropped from 15.5-10.1. Platelet count decreased 34,000. Pedal pulses were palpable. No cyanosis was noted. October 13, 2017 His respiratory status deteriorated overnight requiring intubation. Chest x- ray demonstrated interval worsening: Moderate pulmonary edema; differential includes multifocal pneumonia. His pedal pulses were noted to be decreased. His feet were cool with some mottling. Oct 14 He remains intubated. Oncology consult was obtained for possible DIC. The count remained low at 35,000. However, he received a platelet transfusion prior to this. His creatinine and liver enzymes also improved. Chest x-ray showed interval worsening including small left basilar opacity. He was started on low-dose heparin. Lower extremity venous Doppler showed no evidence of DVT. Lower extremity arterial studies suggested occluded distal posterior and anterior tibial arteries. Completely normal velocity and triphasic waveforms noted from the common femoral artery to the infrageniculate vessels. Occlusion in the distal infrageniculate arteries. CHON was not done. On the left side, there was an occluded dorsalis pedis artery. ABIs were not done. Oct 15 Blood culture starting to grow gram-negative rods, and yeast in the sputum. Vancomycin was discontinued. Levaquin was also stopped. IV fluconazole was started. He was continued on cefepime and clindamycin. He remained on IV heparin for concern for ischemic limits. Some recent chest x-ray suggested pneumonia. Orthopedics was informally consulted, and did not think that his left hand needed to be I&D'd. His sodium started to normalize. Oct 16 He remains intubated. He awakens when sedation is turned down. Platelets started to improve. Echocardiogram was ordered. Blood culture still pending. He remains on Solu-Medrol given his history of long-term smoking. Plus, he was noted to be wheezing on exam. Discussed with Dr. Salgado of surgery, who stated there really appears to be nothing surgical that can do done at this time but to ensure adequate BP to enhance flow. Pt also being treated with low dose anticoagulation will heparin 5 units/kg per hr. Oct 17 Remains intubated. No problems overnight. He awakens when the sedation is turned off. He responds to pain. His echocardiogram demonstrated a normal LVEF. He had borderline LVH. There was no definite regional wall motion abnormality. RVSP was 30-40 mmHg. He had grossly normal valvular function. October 18 He remains intubated. Overnight he was agitated. He was started on Versed drip in addition to Lorazepam drip. He also received a dose of Geodon 20 mg IM. He was seen by general surgery yesterday. No immediate intervention is warranted for his ischemic limbs. However, both consultants, oncology and surgery indicated that pain control would be beneficial. He is receiving tube feeds. Per RN, he has not had a bowel movement in time. Oct 19 His clinical condition remains poor, particularly with respect to his legs. I discussed the case with pulmonary, he as well as the other consultants are in agreement that Mr. Marin would benefit from transfer to another facility capable of managing his acute medical needs. I discussed the case with Dr. King Conrad at by [facility] not, who graciously accepted the patient in transfer. Today, clindamycin was discontinued and replaced with imipenem. Physical Exam Vital Signs: Temp Pulse Resp BP Pulse Ox 98.4 F 82 14 126/81 H 93 10/19/17 10:16 10/19/17 08:00 10/19/17 10:16 10/19/17 10:16 10/19/17 10:16 Intake & Output 10/18/17 10/19/17 10/20/17 06:59 06:59 06:59 Intake Total 3987 4064 Output Total 1765 3950 300 Balance 2222 114 -300 Weight 74.3 kg 72.7 kg General appearance: PRESENT: well-developed, well-nourished Head exam: PRESENT: atraumatic, normocephalic Neck exam: PRESENT: full ROM Respiratory exam: PRESENT: decreased breath sounds, symmetrical, unlabored Cardiovascular exam: PRESENT: RRR. ABSENT: diastolic murmur, rubs, systolic murmur Vascular exam: PRESENT: other - Cyanotic toes. No distal pulses in the lower extremities GI/Abdominal exam: PRESENT: diminished bowel sounds, soft. ABSENT: distended Neurological exam: PRESENT: other - Sedated Skin exam: PRESENT: mottled - Feet and lower legs, pallor Results Laboratory Results: 10/19/17 09:10 10/19/17 09:10 10/18/17 10/19/1718 19:58 09:10 09:10 WBC 22.1 H RBC 3.62 L Hgb 12.1 L Hct 36.2 L MCV 100 H MCH 33.5 H MCHC 33.5 RDW 14.4 H Plt Count 261 Seg Neutrophils % Not Reportable Lymphocytes % Not Reportable Monocytes % Not Reportable Eosinophils % Not Reportable Basophils % Not Reportable Absolute Neutrophils Not Reportable Absolute Lymphocytes Not Reportable Absolute Monocytes Not Reportable Absolute Eosinophils Not Reportable Absolute Basophils Not Reportable Carbonic Acid 0.88 L HCO3/H2CO3 Ratio 26:1 ABG pH 7.51 H ABG pCO2 29.2 L ABG pO2 69.6 L ABG HCO3 22.9 ABG O2 Saturation 95.6 ABG Base Excess 0.8 FiO2 40% Sodium Potassium Chloride Carbon Dioxide Anion Gap BUN Creatinine Est GFR ( Amer) Est GFR (Non-Af Amer) Glucose Calcium Urine Color STRAW Urine Appearance CLEAR Urine pH 7.0 Ur Specific [place] 1.006 Urine Protein NEGATIVE Urine Glucose (UA) NEGATIVE Urine Ketones NEGATIVE Urine Blood SMALL H Urine Nitrite NEGATIVE Ur Leukocyte Esterase NEGATIVE 10/19/17 09:10 WBC RBC Hgb Hct MCV MCH MCHC RDW Plt Count Seg Neutrophils % Lymphocytes % Monocytes % Eosinophils % Basophils % Absolute Neutrophils Absolute Lymphocytes Absolute Monocytes Absolute Eosinophils Absolute Basophils Carbonic Acid HCO3/H2CO3 Ratio ABG pH ABG pCO2 ABG pO2 ABG HCO3 ABG O2 Saturation ABG Base Excess FiO2 Sodium 138.0 Potassium 4.5 Chloride 107 Carbon Dioxide 26 Anion Gap 5 BUN 22 H Creatinine 0.58 Est GFR ( Amer) > 60 Est GFR (Non-Af Amer) > 60 Glucose 104 Calcium 8.2 L Urine Color Urine Appearance Urine pH Ur Specific [place] Urine Protein Urine Glucose (UA) Urine Ketones Urine Blood Urine Nitrite Ur Leukocyte Esterase 10/16/17 06:00 NT-Pro-B Natriuret Pep 2220 H Impressions: Abdomen/Pelvis CT 10/11/17 16:29 IMPRESSION: Tiny bilateral pleural effusions. Minimal basilar subsegmental atelectasis. Mild nonspecific pararenal fat stranding. No hydronephrosis or hydroureter. Hand X-Ray 10/11/17 16:43 IMPRESSION: Several punctate radiopaque foreign bodies appear present in the palmar soft tissue interspace between the 1st and 2nd digits. No fracture. Foot X-Ray 10/11/17 16:46 IMPRESSION: NEGATIVE STUDY OF THE LEFT FOOT. NO RADIOGRAPHIC EVIDENCE OF ACUTE INJURY. Head CT 10/11/17 17:05 IMPRESSION: No significant intracranial abnormalities were identified. Other findings as noted above. EVIDENCE OF ACUTE STROKE: NO. Chest X-Ray 10/18/17 06:00 IMPRESSION: 1. Stable appearance of the chest. Plan Discharge Plan: Transfer to [facility] Time Spent: Greater than 30 Minutes
[2017-10-19] MEDS ORDERED: IMIPENEM/CILASTATIN SODIUM 500 MG in NORMAL SALINE 100 ML IV SCH ×2 (15:00→18:00)
[2017-10-19 15:49] VITALS: BP 130/89
== END 2017-10-19 13:58 | disposition short-term general hospital (02) | DRG 870 ==
LOC: ER 14:38 → EH 18:42 → ICU 10-12 13:33
PROVIDERS: ADMIT Internal Medicine; ATTEND Internal Medicine
PROC: 3E0234Z Introduction of Serum, Toxoid and Vaccine into Muscle, Percutaneous Approach (ICD-10-PCS; 2017-10-11)
PROC: 30233L1 Transfusion of Nonautologous Fresh Plasma into Peripheral Vein, Percutaneous Approach (ICD-10-PCS; 2017-10-12)
PROC: 5A1955Z Respiratory Ventilation, Greater than 96 Consecutive Hours (ICD-10-PCS; principal; 2017-10-13)
PROC: 0BH17EZ Insertion of Endotracheal Airway into Trachea, Via Natural or Artificial Opening (ICD-10-PCS; 2017-10-13)
DX: A41.9 Sepsis, unspecified organism (principal); D65 Disseminated intravascular coagulation [defibrination syndrome]; J18.9 Pneumonia, unspecified organism; J96.01 Acute respiratory failure with hypoxia; R65.21 Severe sepsis with septic shock; K72.00 Acute and subacute hepatic failure without coma; E87.1 Hypo-osmolality and hyponatremia; I99.8 Other disorder of circulatory system; S61.251A Open bite of left index finger without damage to nail, initial encounter; W54.0XXA Bitten by dog, initial encounter; K21.9 Gastro-esophageal reflux disease without esophagitis; F32.9 Major depressive disorder, single episode, unspecified; F17.210 Nicotine dependence, cigarettes, uncomplicated; R00.0 Tachycardia, unspecified; Z88.0 Allergy status to penicillin; Z90.49 Acquired absence of other specified parts of digestive tract; Z78.1 Physical restraint status
CPT/HCPCS: 31500; 36415; 36430; 51702; 70450; 71045; 74176; 80048; 80053; 80076; 80202; 81001; 82272; 82565; 82803; 82962; 83605; 83735; 83880; 84100; 84134; 85025; 85362; 85379; 85384; 85610; 85730; 86900; 86901; 87040; 87070; 87077; 87086; 87205; 93005; 93010; 93306; 93925; 93970; 94002; 94003; 94640; 96361; 96365; 96366; 96367; 96368; 96375; 99291; 99292; C1751; J0692; J0743; J1170; J1450; J1644; J1650; J1956; J2060; J2250; J2370; J2920; J3370; J3411; J3430; J3486; J3490; J7030; J7050; J7060; J7120; J7620; P9017; S0028